=== PATIENT | female | born 1970 | race Caucasian/White ===

== ENCOUNTER 2020-12-03 09:44 | Outpatient (CLI) | payer BC, SELFPAY | END 2020-12-03 09:45 | disposition home or self-care (01) | LOC: ANHCOVIDVC 09:46 | PROVIDERS: PCP Family Medicine | DX: Z23 Encounter for immunization (principal) | CPT/HCPCS: 0001A; 91300 ==

== ENCOUNTER 2020-12-24 09:47 | Outpatient (CLI) | payer BC, SELFPAY | END 2020-12-24 09:48 | disposition home or self-care (01) | LOC: ANHCOVIDVC 09:48 | PROVIDERS: PCP Family Medicine | DX: Z23 Encounter for immunization (principal) | CPT/HCPCS: 0002A; 91300 ==

== ENCOUNTER 2023-04-30 02:33 | Day surgery (SDC) | payer BC, SELFPAY ==
[2023-04-20 08:41] VITALS: BMI 25.3
[2023-04-30] MEDS: LACTATED RINGERS 1,000 ML 150 ML IV CONT (06:25)
[2023-04-30 06:26] VITALS: BP 129/83; PULSE 85; RESP 16; TEMP 36.5; O2SAT 100
--- NOTE | 2023-04-30 07:21 | PM.HPGS ---
History of Present Illness History of Present Illness Consent: Risks, benefits, and alternatives have been discussed and questions answered. Patient agrees to proceed with procedure. Chief complaint: family hx colon ca Narrative: Delores Mata is a 52 year old female Presents for screening colonoscopy. Patient reports that her current weight appetite and bowel movements are normal. She denies abdominal pain. Family history is significant her mother had colon cancer. Previous colonoscopy 5 years ago was unremarkable. Review of Systems Review of Systems: Review of systems noncontributory. 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 Major depressive disorder, recurrent, unspecified Surgical History Surgical History History of back surgery History of breast augmentation History of hernia repair History of tonsillectomy Family History Family History Father Hypertension Mother Hypertension Carcinoma of colon Grandparent Acute myocardial infarction, Onset Age: 73 Family history of malignant neoplasm of breast, Onset Age: 80 Family history of cardiovascular disease Family history of malignant neoplasm of male breast Sibling Hypertension Social History Social History (Updated 01/12/23 @ 08:37 by Lisa Frankel MA) Social History: Caffeine-coffee daily Smoking status: Never smoker Alcohol intake: current Alcohol use details: occasional Substance use: never Substance use type: does not use Lack of Transportation: No Lack of Food: Never True Current Housing: I Have Housing Concerned About Future Housing: No Difficulty Paying Gas/Electric Bills: No Difficulty Paying for Meds: No Currently Unemployed: No Difficulty w/ Childcare or Family Care: No Living arrangements: with family Spiritual care concerns: No Meds Home Medications and Allergies Home Medications Medication Instructions Recorded Confirmed Type fluticasone propionate 50 2 spray intranasal DAILY #50 mL 05/14/21 04/20/23 Rx mcg/actuation nasal spray,suspension (Flonase Allergy Relief) amlodipine 2.5 mg tablet See Rx Instructions .Route 08/04/22 04/30/23 Rx .COMPLEX #90 tabs amitriptyline 50 mg tablet See Rx Instructions .Route 09/23/22 04/20/23 Rx .COMPLEX #90 tabs hydrocodone 5 mg-acetaminophen 325 1 tablet PO Q12H PRN pain #60 tabs 01/12/23 04/20/23 Rx mg tablet duloxetine 60 mg capsule,delayed See Rx Instructions .Route 02/05/23 04/20/23 Rx release .COMPLEX #90 caps levothyroxine 75 mcg tablet See Rx Instructions .Route 02/05/23 04/30/23 Rx .COMPLEX #90 tabs spironolactone 100 mg tablet See Rx Instructions .Route 04/08/23 04/20/23 Rx .COMPLEX #90 tabs estradiol 0.5 mg/0.5 gram (0.1 %) 1 packet topical DAILY 04/20/23 04/20/23 History transdermal gel packet ibuprofen 200 mg capsule 800 mg PO TID 04/20/23 04/20/23 History progesterone micronized 100 mg 100 mg PO DAILY 04/20/23 04/20/23 History capsule Allergies Allergy/AdvReac Type Severity Reaction Status Date / Time No Known Allergies Allergy Verified 04/30/23 06:14 Vital Signs Vital Signs - 24 hr 04/30/23 06:26 Temperature 97.7 F Pulse Rate 85 Respiratory Rate 16 Blood Pressure 129/83 Pulse Oximetry 100 Oxygen Delivery Room Air Exam Narrative: Physical exam reveals patient to be alert. Vital signs stable. HEENT exam is unremarkable. Patient is anicteric. Lungs are clear to auscultation and percussion. Heart is without murmur o
--- NOTE | 2023-04-30 07:21 | WPDANESEPPF ---
Anes - Initial Pre Proc Eval Procedure: Operation Date: 04/30/23 07:30 Proposed Procedures p Colonoscopy - Donal Baca MD Date/Time: 04/30/23 07:21 Surgeon: Donal Baca MD Pre Op Diagnosis: family hx colon ca Patient Data Age: 52 Gender: F Height: 1.71 m Weight: 73.2 kg Last Vital Signs Temp 97.7 F 04/30/23 06:26 Pulse 85 04/30/23 06:26 Resp 16 04/30/23 06:26 BP 129/83 04/30/23 06:26 Pulse Ox 100 04/30/23 06:26 O2 Del Method Room Air 04/30/23 06:26 Allergies Allergy/AdvReac Type Severity Reaction Status Date / Time No Known Allergies Allergy Verified 04/30/23 06:14 Home Medications Medication Instructions Recorded Confirmed Type fluticasone propionate 50 2 spray intranasal DAILY #50 mL 05/14/21 04/20/23 Rx mcg/actuation nasal spray,suspension (Flonase Allergy Relief) amlodipine 2.5 mg tablet See Rx Instructions .Route 08/04/22 04/30/23 Rx .COMPLEX #90 tabs amitriptyline 50 mg tablet See Rx Instructions .Route 09/23/22 04/20/23 Rx .COMPLEX #90 tabs hydrocodone 5 mg-acetaminophen 325 1 tablet PO Q12H PRN pain #60 tabs 01/12/23 04/20/23 Rx mg tablet duloxetine 60 mg capsule,delayed See Rx Instructions .Route 02/05/23 04/20/23 Rx release .COMPLEX #90 caps levothyroxine 75 mcg tablet See Rx Instructions .Route 02/05/23 04/30/23 Rx .COMPLEX #90 tabs spironolactone 100 mg tablet See Rx Instructions .Route 04/08/23 04/20/23 Rx .COMPLEX #90 tabs estradiol 0.5 mg/0.5 gram (0.1 %) 1 packet topical DAILY 04/20/23 04/20/23 History transdermal gel packet ibuprofen 200 mg capsule 800 mg PO TID 04/20/23 04/20/23 History progesterone micronized 100 mg 100 mg PO DAILY 04/20/23 04/20/23 History capsule Patient hx anesthesia problems: none Family hx anesthesia problems: none Results Review: All pre-operative results and documents have been reviewed as part of the pre-operative evaluation. 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 Major depressive disorder, recurrent, unspecified Surgical History Surgical History History of back surgery History of breast augmentation History of hernia repair History of tonsillectomy Family History Family History Father Hypertension Mother Hypertension Carcinoma of colon Grandparent Acute myocardial infarction, Onset Age: 73 Family history of malignant neoplasm of breast, Onset Age: 80 Family history of cardiovascular disease Family history of malignant neoplasm of male breast Sibling Hypertension Social History Social History (Updated 01/12/23 @ 08:37 by Lisa Frankel MA) Social History: Caffeine-coffee daily Smoking status: Never smoker Alcohol intake: current Alcohol use details: occasional Substance use: never Substance use type: does not use Lack of Transportation: No Lack of Food: Never True Current Housing: I Have Housing Concerned About Future Housing: No Difficulty Paying Gas/Electric Bills: No Difficulty Paying for Meds: No Currently Unemployed: No Difficulty w/ Childcare or Family Care: No Living arrangements: with family Spiritual care concerns: No Anes - Eval Final PreProcedure Day of Procedure 04/30/23 07:21 Patient weight: normal Heart: regular rate and rhythm Lungs: clear to auscultation Airway: Mallampati scale class II Neurological: alert and oriented Last oral intake: >/= 8 hours ASA classification: II Emergent: no Anesthetic plan: proceed Anesthesia type and monito
[2023-04-30 07:54] VITALS: BP 110/72; PULSE 68; RESP 15; O2SAT 100
[2023-04-30 08:04] VITALS: BP 115/79; PULSE 75; RESP 17; O2SAT 100
[2023-04-30 08:14] VITALS: BP 128/88; PULSE 75; RESP 17; O2SAT 100
== END 2023-04-30 08:22 | disposition home or self-care (01) ==
PROVIDERS: PCP Family Medicine; Visit Provider Internal Medicine Gastroenterology
PROC: 0DJD8ZZ Inspection of Lower Intestinal Tract, Via Natural or Artificial Opening Endoscopic (ICD-10-PCS; CPT 45378; principal; 2023-04-30 07:30)
DX: Z12.11 Encounter for screening for malignant neoplasm of colon (principal); K64.8 Other hemorrhoids; K21.9 Gastro-esophageal reflux disease without esophagitis; I10 Essential (primary) hypertension; E03.9 Hypothyroidism, unspecified; F33.9 Major depressive disorder, recurrent, unspecified; Z80.0 Family history of malignant neoplasm of digestive organs; Z79.891 Long term (current) use of opiate analgesic
CPT/HCPCS: 45378; J2704; J7120

== ENCOUNTER 2024-07-27 09:59 | Observation (INO) | payer BC, SELFPAY ==
[2024-07-27] VITALS (12 sets, daily range): BP systolic 104–156; BP diastolic 63–99; PULSE 71–113; RESP 12–19; TEMP 36.3–37.3; O2SAT 94–100; BMI 26.7
--- NOTE | ~2024-07-27 | XR_ITS ---
EXAMINATION: XR retrograde pyelogram RT DATE: 07/27/2024 15:56 INDICATION: Right ureteral stone. TECHNIQUE: 38 intraoperative fluoroscopic views of the abdomen and pelvis were obtained. I was not pr esent. Fluoroscopy exposure time was 25 seconds. COMPARISON: CT abdomen and pelvis 07/27/2024 FINDINGS: The track repair worker images demonstrate contrast in the right renal collecting system with mild right hydronephrosis. There are changes of fixation procedure of the spine. Images demonstrate placement of a right internal ureteral stent in expected position. IMPRESSION: 1. Mild right hydronephrosis. 2. Right internal ureteral stent in expected position. Reviewed, dictated and finalized at location A. KMAKER APPRENTICE
--- NOTE | ~2024-07-27 | CT_ITS ---
EXAMINATION: CT abdomen pelvis w con DATE: 07/27/2024 11:11 INDICATION: Right lower quadrant abdominal pain radiating to the back TECHNIQUE: Computed tomography (CT) of the abdomen and pelvis was performed with 100 mL Omnipaque-350 intravenous contrast. Automated exposure control and iterative reconstruction technique were employe d. The dose-length product was 457.74 mGy-cm. COMPARISON: None FINDINGS: Lung bases are clear. Heart size normal. No pericardial or pleural effusion. Bilateral breast implant s. Prominent gallstone in the otherwise normal gallbladder. 9 mm cyst in segment IVb of the liver. Sp benjie, pancreas, bilateral adrenal glands and left kidney are normal. There is an obstructing 5 mm sto ne at the right ureteropelvic junction with mild right hydronephrosis and asymmetrically delayed righ t nephrogram. Moderate amount of stool scattered throughout the colon. Small bowel and appendix are n ormal. Partially decompressed bladder is normal. The uterus and bilateral adnexa are unremarkable. No free intraperitoneal gas or fluid. No pathologically enlarged abdominal or pelvic lymphadenopathy. S evere disc height loss with Modic type III sclerotic endplate changes at L5-S1. There is extensive po sterior spinal fusion extending beyond the cephalad margin of the field of view of the mid thoracic s pine and caudally 0 to L5 with bilateral pedicle screws at L3, L4 and L5. There are laminar wires at the more cephalad lumbar and visualized lower thoracic spine. There are fracture of both the left and right vertical rods at the level of T12 on the right and T12-L1 on the left. IMPRESSION: 1. Obstructing 5 mm stone at the right ureteropelvic junction with mild right hydronephrosis and jay yed right nephrogram. 2. Cholelithiasis. 3. Extensive instrumented posterior spinal fusion extending cephalad from L5 through at least the mid thoracic spine and beyond the superior margin of the field of imaging with fraction of the bilateral vertical rods at the level of the thoracolumbar junction. Reviewed, dictated and finalized at location A. L CLERK IMPRESSION: 1. Obstructing 5 mm stone at the right ureteropelvic junction with mild right h ydronephrosis and delayed right nephrogram. 2. Cholelithiasis. 3. Extensive instrumented posterior spinal fusion extending cephalad from L5 th rough at least the mid thoracic spine and beyond the superior margin of the fie ld of imaging with fraction of the bilateral vertical rods at the level of the thoracolumbar junction.
--- NOTE | ~2024-07-27 | XR_ITS ---
EXAMINATION: XR abdomen/kub 1V DATE: 07/28/2024 08:21 INDICATION: Right ureteropelvic junction stone. TECHNIQUE: A supine view of the abdomen on 2 radiographs was obtained. COMPARISON: CT abdomen and pelvis 07/27/2024 FINDINGS: There are no dilated loops of bowel. There is a large volume of stool in the colon. There i s a 5 mm stone in right kidney. There is a right internal ureteral stent in expected position. There is a 4 mm stone in left kidney. There are changes of posterior fixation procedure in the spine with c hronic discontinuity of the vertebral bodies at T12-L1. IMPRESSION: 1. Bilateral kidney stones. 2. Right internal ureteral stent in expected position. Reviewed, dictated and finalized at location A. CISE PHYSIOLOGIST CERTIFIED
--- NOTE | 2024-07-27 10:25 | ED_ITS ---
HPI - Abdominal Pain General Chief Complaint: Abdominal Pain <LILIAN Gutierrez Last Filed: 07/27/24 12:38> Stated Complaint: RLQ pain radiates into the back <LILIAN Gutierrez Last Filed: 07/27/24 12:38> Time Seen by Provider: 07/27/24 10:03 <LILIAN Gutierrez Last Filed: 07/27/24 12:38> Source: patient <LILIAN Gutierrez Last Filed: 07/27/24 12:38> Mode of arrival: ambulatory <LILIAN Gutierrez Last Filed: 07/27/24 12:38> Limitations: no limitations <LILIAN Gutierrez Last Filed: 07/27/24 12:38> History of Present Illness HPI narrative: Patient is a 53-year-old female who presents the ED with report of right lower abdominal pain. Patient reports pain began this morning. Radiates around to her right lower back. Pain has been constant. Unable to find a comfortable position. Has not taken anything for pain. Reports shakiness, mild nausea. Denies vomiting, diarrhea, constipation, fevers, dysuria, hematuria. Denies history of kidney stones. Denies history of similar pain. <LILIAN Gutierrez Last Filed: 07/27/24 12:38> Related Data Home Medications: Home Medications Medication Instructions Recorded Confirmed estradiol 0.5 mg/0.5 gram (0.1 %) 1 packet topical DAILY 04/20/23 07/27/24 transdermal gel packet ibuprofen 200 mg capsule 800 mg PO TID PRN Back Pain 04/20/23 07/27/24 progesterone micronized 100 mg 100 mg PO HS 04/20/23 07/27/24 capsule amitriptyline 50 mg tablet 50 mg PO HS 07/27/24 07/27/24 amlodipine 2.5 mg tablet 2.5 mg PO DAILY 07/27/24 07/27/24 duloxetine 60 mg capsule,delayed 60 mg PO QPM 07/27/24 07/27/24 release levothyroxine 75 mcg tablet 75 mcg PO DAILY 07/27/24 07/27/24 spironolactone 100 mg tablet 100 mg PO QPM 07/27/24 07/27/24 <Kayce Reyna PA-C - Last Filed: 07/27/24 12:38> Allergies/Adverse Reactions: Allergies Allergy/AdvReac Type Severity Reaction Status Date / Time No Known Allergies Allergy Verified 07/27/24 15:09 <Kayce Reyna PA-C - Last Filed: 07/27/24 12:38> Review of Systems Review of Systems: All systems reviewed & are unremarkable except as noted in HPI. 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 Major depressive disorder, recurrent, unspecified <LILIAN Gutierrez Last Filed: 07/27/24 12:38> Surgical History Surgical History: Surgical History History of back surgery History of breast augmentation History of hernia repair History of tonsillectomy <Kayce Reyna PA-C - Last Filed: 07/27/24 12:38> Family History Family History: Family History Father Hypertension Mother Hypertension Carcinoma of colon Grandparent Acute myocardial infarction, Onset Age: 73 Family history of malignant neoplasm of breast, Onset Age: 80 Family history of cardiovascular disease Family history of malignant neoplasm of male breast Sibling Hypertension <LILIAN Gutierrez Last Filed: 07/27/24 12:38> Social History Social History: Social History Social History: Caffeine-coffee daily Smoking status: Current some day smoker Tobacco type: cigarettes Additional smoking assessment comments: social smoker with drinking only Alcohol intake: current Alcohol use details: occasional Substance use: never Substance use type: does not use Do You Feel Safe in your Home?: Yes Lack of Transportation: No Lack of Food: Never True Current Housing: I Have Housing Concerned About Future Housing: No Difficulty Paying Gas/Electric Bills: No Difficulty Paying for Meds: No Currently Unemployed: No Education: Trade/Vocational Certificate Difficulty w/ Childcare or Family Care: No Living arrangements: with family Spiritual care concerns: No <Kayce Reyna PA-C - Last Filed: 07/27/24 12:38> Exam Narrative: GENERAL: Uncomfortable appearing, well-nourished, non-toxic, in mild acute distress d/t pain. HEAD: Normocephalic, atraumatic. RESPIRATORY: Airway patent, respirations nonlabored. Clear to auscultation bilaterally, no rales, rhonchi, wheezing. CARDIOVASCULAR: Regular rate and rhythm ABDOMINAL: Soft, focal TTP in RLQ/R lateral lower abdomen, nondistended. N ormoactive BS. MUSCULOSKELETAL: Moves all extremities. No gross deformities. SKIN: Warm, dry, normal color. NEURO: A&O X3. Speech clear. PSYCHIATRIC: Appropriate mood and affect. Normal interaction. <Kayce Reyna PA-C - Last Filed: 07/27/24 12:38> Course [facility]/PA Physician Supervision For this patient encounter, I reviewed the SERVICE [facility]ER EMERGENCY or PA documentation, treatment plan, and medical decision making; and I had [id number] time with this patient. <Niko Bliss MD - Last Filed: 07/27/24 18:51> Vital Signs Vital signs: Vital Signs Temperature 98 F 07/27/24 10:00 Pulse Rate 71 07/27/24 10:00 Respiratory Rate 16 07/27/24 10:00 Blood Pressure 147/85 H 07/27/24 10:00 Pulse Oximetry 100 07/27/24 10:00 Oxygen Delivery Room Air 07/27/24 10:00 Temperature 98.1 F 07/27/24 15:55 Pulse Rate 105 H 07/27/24 16:30 Respiratory Rate 19 12/04/24 16:30 Blood Pressure 125/84 07/27/24 16:30 Pulse Oximetry 100 07/27/24 16:30 Oxygen Delivery Room Air 07/27/24 16:30 Oxygen Flow Rate 8 07/27/24 16:00 <Kayce Reyna PA-C - Last Filed: 07/27/24 12:38> Vital Signs Temperature 98 F 07/27/24 10:00 Pulse Rate 71 07/27/24 10:00 Respiratory Rate 16 07/27/24 10:00 Blood Pressure 147/85 H 07/27/24 10:00 Pulse Oximetry 100 07/27/24 10:00 Oxygen Delivery Room Air 07/27/24 10:00 Temperature 98.1 F 07/27/24 15:55 Pulse Rate 105 H 07/27/24 16:30 Respiratory Rate 19 07/27/24 16:30 Blood Pressure 125/84 07/27/24 16:30 Pulse Oximetry 100 07/27/24 16:30 Oxygen Delivery Room Air 07/27/24 16:30 Oxygen Flow Rate 8 07/27/24 16:00 <Niko Bliss MD - Last Filed: 07/27/24 18:51> MDM - Abdominal Pain MDM Narrative Medical decision making narrative: Patient presented to ED with onset of right lower quadrant abdominal pain that began this morning, radiates to right lower back. Vital signs are stable upon arrival. Patient is afebrile. CBC with white blood cell count of 13.1. Neutrophil predominance. No bandemia. CMP is fairly unremarkable. Minimal transaminitis noted. Normal bilirubin. Normal lipase. UA with positive nitrate, some evidence of blood, only 6 - 10 white blood cell count. Sent for culture. Will treat. Given dose of Rocephin in the ED to cover for potential infection. Blood present on UA concerning for possible kidney stone. Patient denies previous hx of stone. CT scan of abdomen/ pelvis was obtained and showing 5 mm right UPJ stone. Mild R hydronephrosis/delayed nephrogram. consistent with clinical picture. Patient was updated on lab and imaging findings. She is still complaining of severe right-sided pain. Will attempt additional pain control. Patient has required several doses of IV pain medicine with minimal relief. Will be admitted for further evaluation and pain control. Discussed case with Dr. Porras, urology, will likely take patient for stent tomorrow. Will consult. Keep NPO. Obtain KUB in am. Discussed case with Silva Waite [facility]ICE [facility]ER [facility]ERG[facility]Y hospitalist, accepted patient for admission. Patient in agreement with plan and need for admission. <Kayce Reyna PA-C - Last Filed: 07/27/24 12:38> Medical Records Attestation: I reviewed the patient's medical records. <Kayce Reyna PA-C - Last Filed: 07/27/24 12:38> Lab Data Attestation: I reviewed the patient's lab results. <Kayce Reyna PA-C - Last Filed: 07/27/24 12:38> Result diagrams: 07/27/24 10:19 07/27/24 10:19 <Kayce Reyna PA-C - Last Filed: 07/27/24 12:38> Labs: Lab Results 07/27/24 07/27/24 Range/Units 10:19 10:42 WBC 13.1 H (4.5-10.0) K/mm3 RBC 4.43 (4.2-5.4) M/mm3 Hgb 13.6 (12.0-15.0) g/dL Hct 41.8 (37.0-47.0) % MCV 94.4 (80-100) fl MCH 30.7 (26-34) pg MCHC 32.5 (32-36) g/dl RDW 12.1 (11.5-14.5) % Plt Count 223 (150-375) k/mm3 MPV 10.2 (7.4-10.4) fl Immature Gran % (Auto) 0.5 (0-0.5) % Neut % (Auto) 83.6 H (45.5-73.1) % Lymph % (Auto) 10.1 L (18.3-44.2) % Swisher % (Auto) 5.0 (2.6-8.5) % Eos % (Auto) 0.5 (0-4.4) % Baso % (Auto) 0.3 (0.2-1.2) % Lymph # (Auto) 1.32 (0.9-3.2) K/mm3 Swisher # (Auto) 0.7 H (0.1-0.6) K/mm3 Eos # (Auto) 0.1 (0-0.3) K/mm3 Baso # (Auto) 0.0 (0.0-0.1) K/mm3 Abs Immat Gran (auto) 0.06 H (0.00-0.031) K/mm3 Absolute Neuts (auto) 10.9 H (1.3-6.7) K/mm3 Absolute Nucleated RBC 0.000 (0.0-0.012) K/mm3 Nucleated RBC % 0.0 (0.0-0.2) % Sodium 137 (137-145) mmol/L Potassium 4.3 (3.4-5.0) mmol/L Chloride 106 (98-107) mmol/L Carbon Dioxide 21 L (22-30) mmol/L Anion Gap 10 (4-12) mmol/L BUN 26 H (7-17) mg/dL Creatinine 0.90 (0.7-1.0) mg/dL Estim Creat Clear Calc 63 ml/min Estimated GFR > 60 (59 - ) Glucose 123 H (65-110) mg/dL Calcium 9.7 (8.4-10.2) mg/dL Total Bilirubin 0.5 (0.2-1.3) mg/dL AST 43 H (14-36) U/L ALT 52 H (6-35) U/L Alkaline Phosphatase 55 (38-126) U/L Total Protein 8.0 (6.3-8.2) g/dL Albumin 4.8 (3.5-5.1) g/dL Lipase 101 (23-300) U/L Urine Color Yellow (Yellow) Urine Appearance Clear (Clear) Urine pH 7.5 (5.0-9.0) Ur Specific [place] 1.016 (1.001-1.035) Urine Protein Negative (Negative) mg/dL Urine Glucose (UA) Negative (Negative) mg/dL Urine Ketones Negative (Negative) mg/dL Ur Blood (Man) 2+ H (Negative) Urine Nitrate Positive H (Negative) Urine Bilirubin Negative (Negative) Urine Urobilinogen 1.0 (<2.0) mg/dL Leukocyte Esterase Rfl Trace H (Negative) DERIAN/UL Urine RBC 11-20 H (0-2) /hpf Urine WBC 6-10 H (0-3) /hpf Ur Squamous Epith Cells None seen (Few) /hpf Urine Bacteria 1+ H /hpf Urine Casts 0-2 <Kayce Reyna PA-C - Last Filed: 07/27/24 12:38> Lab Results 07/27/24 07/27/24 Range/Units 10:19 10:42 WBC 13.1 H (4.5-10.0) K/mm3 RBC 4.43 (4.2-5.4) M/mm3 Hgb 13.6 (12.0-15.0) g/dL Hct 41.8 (37.0-47.0) % MCV 94.4 (80-100) fl MCH 30.7 (26-34) pg MCHC 32.5 (32-36) g/dl RDW 12.1 (11.5-14.5) % Plt Count 223 (150-375) k/mm3 MPV 10.2 (7.4-10.4) fl Immature Gran % (Auto) 0.5 (0-0.5) % Neut % (Auto) 83.6 H (45.5-73.1) % Lymph % (Auto) 10.1 L (18.3-44.2) % Swisher % (Auto) 5.0 (2.6-8.5) % Eos % (Auto) 0.5 (0-4.4) % Baso % (Auto) 0.3 (0.2-1.2) % Lymph # (Auto) 1.32 (0.9-3.2) K/mm3 Swisher # (Auto) 0.7 H (0.1-0.6) K/mm3 Eos # (Auto) 0.1 (0-0.3) K/mm3 Baso # (Auto) 0.0 (0.0-0.1) K/mm3 Abs Immat Gran (auto) 0.06 H (0.00-0.031) K/mm3 Absolute Neuts (auto) 10.9 H (1.3-6.7) K/mm3 Absolute Nucleated RBC 0.000 (0.0-0.012) K/mm3 Nucleated RBC % 0.0 (0.0-0.2) % Sodium 137 (137-145) mmol/L Potassium 4.3 (3.4-5.0) mmol/L Chloride 106 (98-107) mmol/L Carbon Dioxide 21 L (22-30) mmol/L Anion Gap 10 (4-12) mmol/L BUN 26 H (7-17) mg/dL Creatinine 0.90 (0.7-1.0) mg/dL Estim Creat Clear Calc 63 ml/min Estimated GFR > 60 (59 - ) Glucose 123 H (65-110) mg/dL Calcium 9.7 (8.4-10.2) mg/dL Total Bilirubin 0.5 (0.2-1.3) mg/dL AST 43 H (14-36) U/L ALT 52 H (6-35) U/L Alkaline Phosphatase 55 (38-126) U/L Total Protein 8.0 (6.3-8.2) g/dL Albumin 4.8 (3.5-5.1) g/dL Lipase 101 (23-300) U/L Urine Color Yellow (Yellow) Urine Appearance Clear (Clear) Urine pH 7.5 (5.0-9.0) Ur Specific [place] 1.016 (1.001-1.035) Urine Protein Negative (Negative) mg/dL Urine Glucose (UA) Negative (Negative) mg/dL Urine Ketones Negative (Negative) mg/dL Ur Blood (Man) 2+ H (Negative) Urine Nitrate Positive H (Negative) Urine Bilirubin Negative (Negative) Urine Urobilinogen 1.0 (<2.0) mg/dL Leukocyte Esterase Rfl Trace H (Negative) DERIAN/UL Urine RBC 11-20 H (0-2) /hpf Urine WBC 6-10 H (0-3) /hpf Ur Squamous Epith Cells None seen (Few) /hpf Urine Bacteria 1+ H /hpf Urine Casts 0-2 <Niko Bliss MD - Last Filed: 07/27/24 18:51> Imaging Data Attestation: I personally reviewed and interpreted this imaging study as follows: <Kayce Reyna PA-C - Last Filed: 07/27/24 12:38> Radiologist's impression: ITS Impressions Abdomen/Pelvis CT 07/27/24 11:18 IMPRESSION: 1. Obstructing 5 mm stone at the right ureteropelvic junction with mild right hydronephrosis and delayed right nephrogram. 2. Cholelithiasis. 3. Extensive instrumented posterior spinal fusion extending cephalad from L5 through at least the mid thoracic spine and beyond the superior margin of the field of imaging with fraction of the bilateral vertical rods at the level of the thoracolumbar junction. Retrograde Pyelogram 07/27/24 16:37 IMPRESSION: 1. Mild right hydronephrosis. 2. Right internal ureteral stent in expected position. <Kayce Reyna PA-C - Last Filed: 07/27/24 12:38> ITS Impressions Abdomen/Pelvis CT 07/27/24 11:18 IMPRESSION: 1. Obstructing 5 mm stone at the right ureteropelvic junction with mild right hydronephrosis and delayed right nephrogram. 2. Cholelithiasis. 3. Extensive instrumented posterior spinal fusion extending cephalad from L5 through at least the mid thoracic spine and beyond the superior margin of the field of imaging with fraction of the bilateral vertical rods at the level of the thoracolumbar junction. Retrograde Pyelogram 07/27/24 16:37 IMPRESSION: 1. Mild right hydronephrosis. 2. Right internal ureteral stent in expected position. <Niko Bliss MD - Last Filed: 07/27/24 18:51> Discharge Plan Discharge Clinical Impression: Obstruction of right ureteropelvic junction (UPJ) due to stone, Abnormal finding on urinalysis, Right sided abdominal pain <LILIAN Gutierrez Last Filed: 07/27/24 12:38> Patient Disposition: Still a Patient <LILIAN Gutierrez Last Filed: 07/27/24 12:38> Condition: Stable <LILIAN Gutierrez Last Filed: 07/27/24 12:38>
[2024-07-27 10:29] LABS: Basophils Percent Auto 0.3 % (0.2-1.2); Eosinophils Absolute Auto 0.1 K/mm3 (0-0.3); Eosinophils Percent Auto 0.5 % (0-4.4); Hematocrit 41.8 % (37.0-47.0); Hemoglobin 13.6 g/dL (12.0-15.0); Immature Granulocyte Absolute 0.06 K/mm3 (0.00-0.031); Immature Granulocyte Percent A 0.5 % (0-0.5); Lymphocytes Absolute Auto 1.32 K/mm3 (0.9-3.2); Lymphocytes Percent Auto 10.1 % (18.3-44.2); Mean Corpuscular HGB Conc 32.5 g/dl (32-36); Mean Corpuscular Hemoglobin 30.7 pg (26-34); Mean Corpuscular Volume 94.4 fl (80-100); Mean Platelet Volume 10.2 fl (7.4-10.4); Monocytes Absolute Auto 0.7 K/mm3 (0.1-0.6); Neutrophils Absolute Auto 10.9 K/mm3 (1.3-6.7); Neutrophils Percent Auto 83.6 % (45.5-73.1); Platelet Count Result 223 k/mm3 (150-375); Red Blood Count 4.43 M/mm3 (4.2-5.4); Red Cell Distribution Width 12.1 % (11.5-14.5); White Blood Count 13.1 K/mm3 (4.5-10.0)
[2024-07-27] MEDS: MORPHINE SULFATE (*CRX) 4 MG/ML INJ IV PUSH (10:39)
[2024-07-27] MEDS: ONDANSETRON INJ 4 MG/2 ML VIAL IV PUSH ×2 (10:40→12:18)
[2024-07-27 10:45] LABS: Alanine Aminotransferase 52 U/L (6-35); Albumin Level 4.8 g/dL (3.5-5.1); Alkaline Phosphatase 55 U/L (38-126); Anion Gap 10 mmol/L (4-12); Aspartate Amino Transferase 43 U/L (14-36); Bilirubin,Total 0.5 mg/dL (0.2-1.3); Blood Urea Nitrogen 26 mg/dL (7-17); Calcium 9.7 mg/dL (8.4-10.2); Carbon Dioxide 21 mmol/L (22-30); Chloride 106 mmol/L (98-107); Estimated CRCL calculation 63 ml/min; Estimated Glomerular Filt Rate > 60; Glucose 123 mg/dL (65-110); Lipase 101 U/L (23-300); Potassium 4.3 mmol/L (3.4-5.0); Sodium 137 mmol/L (137-145)
[2024-07-27 11:00] LABS: Add Urine Microscopic? YES; Appearance Urine Clear (Clear); Bacteria Urine 1+ /hpf; Bilirubin Urine Negative (Negative); Blood Urine 2+ (Negative); Color Urine Yellow (Yellow); Glucose Urine UA Negative (Negative); Ketones Urine Negative (Negative); Leukocyte Esterase Ur Trace LEU/UL (Negative); Nitrate Urine Positive (Negative); Non Pathogenic Casts 0-2; Protein Urine Negative (Negative); Specific Grav Ur 1.016 (1.001-1.035); Squamous Epithelial Cell Urine None Seen /hpf (Few); pH Urine 7.5 (5.0-9.0)
[2024-07-27] MEDS: HYDROmorphone HCL INJ (*CRX) 1 MG/ML SYR 0.5 MG IV PUSH (11:20)
[2024-07-27] MEDS: SODIUM CHLORIDE 0.9% IV 1,000 ML 999 ML IV CONT (11:59)
[2024-07-27] MEDS: TAMSULOSIN HCL 0.4 MG CAPSULE PO ×2 (12:00→17:00)
[2024-07-27] MEDS: ACETAMINOPHEN 500 MG TABLET 1000 MG PO (12:00)
[2024-07-27] MEDS: HYDROmorphone HCL INJ (*CRX) 1 MG/ML SYR IV PUSH (12:00)
[2024-07-27] MEDS: IBUPROFEN IV 800 MG/200 ML 800 MG/200 ML BAG 387.51 MG IVPB (12:20)
--- NOTE | 2024-07-27 12:22 | PC.NURSE ---
Pt. reports 7/10 pain at time at IV Ibuprofen anitiation
[2024-07-27] MEDS: SODIUM CHLORIDE 0.9% IV 1,000 ML 125 ML IV CONT ×2 (13:16→23:00)
--- NOTE | 2024-07-27 13:27 | WPDURCON ---
Assessment and Plan Assessment and plan (1) Obstruction of right ureteropelvic junction (UPJ) due to stone: Code(s): N20.1 - Calculus of ureter Status: Acute Assessment and Plan: - Obstructing 5 mm stone at right ureteropelvic junction with mild right hydronephrosis identified on CT imaging - Required hospital admission due to poor pain control (2) UTI (urinary tract infection): Qualifiers: Urinary tract infection type: acute cystitis Hematuria presence: with hematuria Qualified Code(s): N30.01 - Acute cystitis with hematuria Code(s): N39.0 - Urinary tract infection, site not specified Status: Acute Assessment and Plan: - Urinalysis suspicious for urinary tract infection [present on admission] - Urine culture pending Plan - Keep NPO for planned cystoscopy, right ureteral stent placement with Dr. Porras this afternoon - Continue tamsulosin - Strain urine - Continue IV ceftriaxone pending urine culture results - Pain management and IV fluids per primary team - Anticipate need for outpatient stone treatment in the next 1-2 weeks after infection has cleared Urology Consult Note HPI Date Seen: 07/27/24 Requesting Physician: Mj Le MD Primary Care Provider: MARGY Fitch-Carlyle Consult Narrative Reason for consult: Obstructing 5 mm stone at right ureteropelvic junction Narrative: Neema Mata presents with right lower quadrant abdominal pain that began this morning. Pain has been constant with inability to find a comfortable position. Reports shakiness and mild nausea, denies vomiting, diarrhea, constipation, fevers, dysuria, or hematuria. Initial pain management with morphine and Dilaudid in the ED was ineffective; pain control achieved with higher dose Dilaudid, ibuprofen, and Tylenol. No prior history of kidney stones. CT imaging revealed a 5 mm obstructing stone at right ureteropelvic junction with mild hydronephrosis. Currently receiving IV fluids. Has been NPO since about 0530 this morning. PERTINENT LABS: 07/27/2024 - WBC 13.1, Hgb 13.6, Hct 41.8, Plt 223, Creatinine 0.90 07/27/2024 - UA: 2+ blood, positive nitrite, trace leukocyte esterase, RBC 11-20, WBC 6-10, bacteria 1+ PERTINENT IMAGIN07/27/2024 CT Abdomen/Pelvis - Obstructing 5 mm stone at right ureteropelvic junction with mild right hydronephrosis and delayed right nephrogram. Incidental findings of cholelithiasis and extensive instrumented posterior spinal fusion. Review of Systems Constitutional: Constitutional: Reports no additional constitutional complaints Eyes: Eyes: Reports no additional eye complaints ENT: Reports Normal hearing present Cardiovascular: Cardiovascular: Reports no additional cardiovascular complaints Respiratory: Respiratory: Reports no additional respiratory complaints Gastrointestinal: Gastrointestinal: Reports abdominal pain and Reports nausea Genitourinary: Genitourinary: Reports as per HPI Musculoskeletal: Musculoskeletal: Reports as per HPI Neurologic: Reports system reviewed and no additional complaints, except as documented Psychiatric: Psychiatric: Reports no additional psychiatric complaints [facility] Past Medical History Medical History Actinic keratosis Benign essential hypertension with target blood pressure below 140/90 Dry eye syndrome of bilateral lacrimal glands GERD (gastroesophageal reflux disease) Hypothyroidism (acquired) Infantile idiopathic scoliosis, thoracolumbar region MCC use of drug Major depressive disorder, recurrent, unspecified Surgical History Surgical History History of back surgery History of breast augmentation History of hernia repair History of tonsillectomy Family History Family History Father Hypertension Mother Hypertension Carcinoma of colon Grandparent Acute myocardial infarction, Onset Age: 73 Family history of malignant neoplasm of breast, Onset Age: 80 Family history of cardiovascular disease Family history of malignant neoplasm of male breast Sibling Hypertension Social History Social History Social History: Caffeine-coffee daily Smoking status: Never smoker Alcohol intake: current Alcohol use details: occasional Substance use: never Substance use type: does not use Lack of Transportation: No Lack of Food: Never True Current Housing: I Have Housing Concerned About Future Housing: No Difficulty Paying Gas/Electric Bills: No Difficulty Paying for Meds: No Currently Unemployed: No Difficulty w/ Childcare or Family Care: No Living arrangements: with family Spiritual care concerns: No Meds Home Medications and Allergies Home Medications Medication Instructions Recorded Confirmed Type estradiol 0.5 mg/0.5 gram (0.1 %) 1 packet topical DAILY 04/20/23 07/27/24 History transdermal gel packet ibuprofen 200 mg capsule 800 mg PO TID PRN Back Pain 04/20/23 07/27/24 History progesterone micronized 100 mg 100 mg PO HS 04/20/23 07/27/24 History capsule hydrocodone 5 mg-acetaminophen 325 1 tablet PO Q12H PRN pain #60 tabs 05/20/24 07/27/24 Rx mg tablet amitriptyline 50 mg tablet 50 mg PO HS 07/27/24 07/27/24 History amlodipine 2.5 mg tablet 2.5 mg PO DAILY 07/27/24 07/27/24 History duloxetine 60 mg capsule,delayed 60 mg PO QPM 07/27/24 07/27/24 History release levothyroxine 75 mcg tablet 75 mcg PO DAILY 07/27/24 07/27/24 History spironolactone 100 mg tablet 100 mg PO QPM 07/27/24 07/27/24 History Allergies Allergy/AdvReac Type Severity Reaction Status Date / Time No Known Allergies Allergy Verified 07/27/24 15:09 Vital Signs Vital Signs - 24 hr 07/27/24 10:00 07/27/24 11:20 07/27/24 13:17 Temperature 98 F Pulse Rate 71 91 97 Respiratory Rate 16 18 18 Blood Pressure 147/85 H 156/99 H 156/92 H Pulse Oximetry 100 98 99 Oxygen Delivery Room Air Exam Const: General: comfortable and no acute distress HENMT: Face/Nose/Sinus: Normal nares present Eyes: General: appearance normal, both eyes and all related structures Neck: Neck: supple Resp: Effort & Inspection: normal respiratory effort GI: Other: RLQ tender, nondistended Skin: General skin exam: normal color and no rashes or lesions noted Neuro: Speech: normal speech Extrem: General: normal to inspection Psych: Speech and movement: Normal speech and movement present Affect: normal affect Results Labs 07/27/24 10:19 07/27/24 10:19 Labs: Short CBC 07/27/24 Range/Units 10:19 WBC 13.1 H (4.5-10.0) K/mm3 Hgb 13.6 (12.0-15.0) g/dL Hct 41.8 (37.0-47.0) % Plt Count 223 (150-375) k/mm3 [facility] 07/27/24 10:19 Sodium 137 Potassium 4.3 Chloride 106 Carbon Dioxide 21 L BUN 26 H Creatinine 0.90 Glucose 123 H Calcium 9.7 Liver Function 07/27/24 Range/Units 10:19 Total Bilirubin 0.5 (0.2-1.3) mg/dL AST 43 H (14-36) U/L ALT 52 H (6-35) U/L Alkaline Phosphatase 55 (38-126) U/L Albumin 4.8 (3.5-5.1) g/dL Urine 07/27/24 Range/Units 10:42 Urine Color Yellow (Yellow) Urine Appearance Clear (Clear) Urine pH 7.5 (5.0-9.0) Ur Specific [place] 1.016 (1.001-1.035) Urine Protein Negative (Negative) mg/dL Urine Glucose (UA) Negative (Negative) mg/dL
--- NOTE | 2024-07-27 13:34 | P.HP_ITS ---
H&P: HPI History of Present Illness Date/Time: 07/27/24 13:34 Chief Complaint: Abdominal Pain Narrative: 53 y/o F presents here with or lower quadrant pain with PMH of GERD, hypothyroidism, hypertension, and MDD. The patient presents here from home for further evaluation of right lower quadrant pain. The patient reports acute onset of right lower abdominal pain this morning at 06:50 a.m. She describes the pain initially as gas cramps -> sharp, progressive, radiation into her right lower back/flank, constant, and no alleviating or aggravating factors. Did not trial any [id number] pain medications at home. Did try Tums without relief. Endorsing chills and intermittent diaphoresis. Denies associated fever, nausea, vomiting, or body aches. Patient now feeling improved post cystoscopy. Initial VS at presentation: Na degrees F, HR 71, RR 16, 147/85, and 100% on RA. ED workup showed: WBC 13.1, no anemia, creatinine 0.9 and GFR >60, glucose 123, AST 43, ALT 52, and UA consistent with UTI. CT of the abdomen/pelvis showed an obstructing 5 mm stone at the right ureteropelvic junction with mild right hydronephrosis and delayed right nephrogram, cholelithiasis, extensive instrumented posterior spinal fusion. Review of Systems Review of Systems: All systems reviewed & are unremarkable except as noted in HPI and below PMFSH Past Medical History Medical History Actinic keratosis Benign essential hypertension with target blood pressure below 140/90 Dry eye syndrome of bilateral lacrimal glands GERD (gastroesophageal reflux disease) Hypothyroidism (acquired) Infantile idiopathic scoliosis, thoracolumbar region assisted use of drug Major depressive disorder, recurrent, unspecified Surgical History Surgical History History of back surgery History of breast augmentation History of hernia repair History of tonsillectomy Family History Family History Father Hypertension Mother Hypertension Carcinoma of colon Grandparent Acute myocardial infarction, Onset Age: 73 Family history of malignant neoplasm of breast, Onset Age: 80 Family history of cardiovascular disease Family history of malignant neoplasm of male breast Sibling Hypertension Social History Social History Social History: Caffeine-coffee daily Smoking status: Current some day smoker Tobacco type: cigarettes Additional smoking assessment comments: social smoker with drinking only Alcohol intake: current Alcohol use details: occasional Substance use: never Substance use type: does not use Do You Feel Safe in your Home?: Yes Lack of Transportation: No Lack of Food: Never True Current Housing: I Have Housing Concerned About Future Housing: No Difficulty Paying Gas/Electric Bills: No Difficulty Paying for Meds: No Currently Unemployed: No Education: Trade/Vocational Certificate Difficulty w/ Childcare or Family Care: No Living arrangements: with family Spiritual care concerns: No Meds Home Medications and Allergies Home Medications Medication Instructions Recorded Confirmed Type estradiol 0.5 mg/0.5 gram (0.1 %) 1 packet topical DAILY 04/20/23 07/27/24 History transdermal gel packet ibuprofen 200 mg capsule 800 mg PO TID PRN Back Pain 04/20/23 07/27/24 History progesterone micronized 100 mg 100 mg PO HS 04/20/23 07/27/24 History capsule hydrocodone 5 mg-acetaminophen 325 1 tablet PO Q12H PRN pain #60 tabs 05/20/24 07/27/24 Rx mg tablet amitriptyline 50 mg tablet 50 mg PO HS 07/27/24 07/27/24 History amlodipine 2.5 mg tablet 2.5 mg PO DAILY 07/27/24 07/27/24 History duloxetine 60 mg capsule,delayed 60 mg PO QPM 07/27/24 07/27/24 History release levothyroxine 75 mcg tablet 75 mcg PO DAILY 07/27/24 07/27/24 History spironolactone 100 mg tablet 100 mg PO QPM 07/27/24 07/27/24 History Allergies Allergy/AdvReac Type Severity Reaction Status Date / Time No Known Allergies Allergy Verified 07/27/24 15:09 Vital Signs Vital Signs - 24 hr 07/27/24 10:00 07/27/24 11:20 07/27/24 13:17 Temperature 98 F Pulse Rate 71 91 97 Respiratory Rate 16 18 18 Blood Pressure 147/85 H 156/99 H 156/92 H Pulse Oximetry 100 98 99 Oxygen Delivery Room Air Exam Const: General: comfortable and no acute distress Other: , female, nontoxic appearance HENMT: Face/Nose/Sinus: Normal nares present Mouth: Yes moist mucous membranes Eyes: General: appearance normal, both eyes and all related structures Sclera: sclerae normal Pupils: Equal, round and reactive pupils present EOM: EOMs intact bilaterally Resp: Effort & Inspection: normal respiratory effort Auscultation: clear to auscultation bilaterally Cardio: Rate: regular rate Rhythm: regular rhythm Other: S1-S2 present without murmur, rub, ectopy GI: Other: Abdomen soft, nondistended, nontender. Normoactive bowel sounds in all quadrants. : Other: No suprapubic tenderness Skin: General skin exam: normal color and no rashes or lesions noted Wounds: no wounds Neuro: Speech: normal speech Motor exam (neuro): 5/5 motor strength present throughout Sensory Exam: normal sensation Other: A&O x4 Extrem: General: normal to inspection Psych: Mental Status: mental status grossly normal Affect: normal affect Other: Good insight and judgment, pleasant H&P: Results Labs Labs: Short CBC 07/27/24 Range/Units 10:19 WBC 13.1 H (4.5-10.0) K/mm3 Hgb 13.6 (12.0-15.0) g/dL Hct 41.8 (37.0-47.0) % Plt Count 223 (150-375) k/mm3 BMP 07/27/24 10:19 Sodium 137 Potassium 4.3 Chloride 106 Carbon Dioxide 21 L BUN 26 H Creatinine 0.90 Glucose 123 H Calcium 9.7 Liver Function 07/27/24 Range/Units 10:19 Total Bilirubin 0.5 (0.2-1.3) mg/dL AST 43 H (14-36) U/L ALT 52 H (6-35) U/L Alkaline Phosphatase 55 (38-126) U/L Albumin 4.8 (3.5-5.1) g/dL Urine 07/27/24 Range/Units 10:42 Urine Color Yellow (Yellow) Urine Appearance Clear (Clear) Urine pH 7.5 (5.0-9.0) Ur Specific [place] 1.016 (1.001-1.035) Urine Protein Negative (Negative) mg/dL Urine Glucose (UA) Negative (Negative) mg/dL Assessment and Plan Assessment and plan (1) Obstruction of right ureteropelvic junction (UPJ) due to stone: Code(s): N20.1 - Calculus of ureter Status: Acute Assessment and Plan: - CT abdomen/pelvis: 1. Obstructing 5 mm stone at the right ureteropelvic junction with mild right hydronephrosis and delayed right nephrogram. 2. Cholelithiasis. 3. Extensive instrumented posterior spinal fusion extending cephalad from L5 through at least the mid thoracic spine and beyond the superior margin of the field of imaging with fraction of the bilateral vertical rods at the level of the thoracolumbar junction. - urology consulted, awaiting formal recs. ED provider spoke with Chiquita RENEE, patient will likely go for stent placement tomorrow. Keep NPO. Obtain KUB in a.m. (ordered) - analgesics and antiemetics p.r.n. - Flomax initiated in ED, continue - IV fluids: 1L bolus -> 125 mL/hr, d/c when appropriate - monitor I&Os - trend renal function (2) UTI (urinary tract infection): Qualifiers: Hematuria presence: without hematuria Urinary tract infection type: acute cystitis Qualified Code(s): N30.00 - Acute cystitis without hematuria Code(s): N39.0 - Urinary tract infection, site not specified Status: Acute Assessment and Plan: - UA: 2+ blood, positive nitrates, trace leuks, 11-20 and RBC, 6-10 WBC, no epithelial cells, 1+ bacteria. - UC pending - previous micro reviewed, none available for review - started on Ceftriaxone on 07/27 - trend WBC (3) Transaminitis: Code(s): R74.01 - Elevation of levels of liver transaminase levels Status: Acute Assessment and Plan: - AST 43, ALT 52 - lipase 101 - CT of the abdomen/pelvis showed cholelithiasis - trend (4) Benign essential hypertension: Code(s): I10 - Essential (primary) hypertension Status: Chronic Assessment and Plan: - chronic, currently 156/92 - continue home medications: amlodipine 2.5 mg daily, spironolactone 100 mg HS - monitor Plan Diet: NPO GI Prophylaxis: Not currently indicated DVT Prophylaxis: SCDs Lines: Peripheral Code Status: Full code Quality VTE Prophylaxis VTE prophylaxis: mechanical ordered Hospitalist [facility] Advance Care Plan I have confirmed that the patient's Advanced Care Plan is present, code status is documented, or surrogate decision maker is listed in patient medical record.: Yes Medication Reconciliation I have utilized all available resources to obtain, update and review the patients current medications (includes all prescriptions, OTC, herbals, cannabis, and nutritional supplements).: Yes
--- NOTE | 2024-07-27 13:35 | ADMGEN ---
This patient, Delores Mata, was admitted to Medical Room 253-01. Patient/family oriented to hospital policies and general routines including ID bracelet, bed and alarms, visiting hours, pain management, procedures, bathroom and other care routines, personal items, smoking policy, room service/diet, and visiting hours. Information on how to activate the Rapid Response Team has been discussed. Patient/Family are encouraged to report perceived risks to care and to ask questions if they do not understand what they are told or what they should do.
--- NOTE | 2024-07-27 15:12 | P.PNAN_ITS ---
Anes - Initial Pre Proc Eval Procedure: Operation Date: 07/27/24 15:00 Proposed Procedures p Cystoscopy, Right Stent Placement - Nathanael Porras MD Date/Time: 07/27/24 15:12 Surgeon: Mj Le MD Pre Op Diagnosis: R UPJ stone Patient Data Age: 53 Gender: F Height: 1.7 m Weight: 77.4 kg Last Vital Signs Temp 37.3 C 07/27/24 15:00 Pulse 88 07/27/24 15:00 Resp 18 07/27/24 15:00 BP 141/82 H 07/27/24 15:00 Pulse Ox 100 07/27/24 15:00 O2 Del Method Room Air 07/27/24 15:00 Allergies Allergy/AdvReac Type Severity Reaction Status Date / Time No Known Allergies Allergy Verified 07/27/24 15:09 Home Medications Medication Instructions Recorded Confirmed Type estradiol 0.5 mg/0.5 gram (0.1 %) 1 packet topical DAILY 04/20/23 07/27/24 History transdermal gel packet ibuprofen 200 mg capsule 800 mg PO TID PRN Back Pain 04/20/23 07/27/24 History progesterone micronized 100 mg 100 mg PO HS 04/20/23 07/27/24 History capsule hydrocodone 5 mg-acetaminophen 325 1 tablet PO Q12H PRN pain #60 tabs 05/20/24 07/27/24 Rx mg tablet amitriptyline 50 mg tablet 50 mg PO HS 07/27/24 07/27/24 History amlodipine 2.5 mg tablet 2.5 mg PO DAILY 07/27/24 07/27/24 History duloxetine 60 mg capsule,delayed 60 mg PO QPM 07/27/24 07/27/24 History release levothyroxine 75 mcg tablet 75 mcg PO DAILY 07/27/24 07/27/24 History spironolactone 100 mg tablet 100 mg PO QPM 07/27/24 07/27/24 History Laboratory Tests 07/27/24 07/27/24 10:19 10:42 WBC 13.1 H K/mm3 (4.5-10.0) RBC 4.43 M/mm3 (4.2-5.4) Hgb 13.6 g/dL (12.0-15.0) Hct 41.8 % (37.0-47.0) MCV 94.4 fl (80-100) MCH 30.7 pg (26-34) MCHC 32.5 g/dl (32-36) RDW 12.1 % (11.5-14.5) Plt Count 223 k/mm3 (150-375) MPV 10.2 fl (7.4-10.4) Immature Gran % (Auto) 0.5 % (0-0.5) Neut % (Auto) 83.6 H % (45.5-73.1) Lymph % (Auto) 10.1 L % (18.3-44.2) Sharp % (Auto) 5.0 % (2.6-8.5) Eos % (Auto) 0.5 % (0-4.4) Baso % (Auto) 0.3 % (0.2-1.2) Lymph # (Auto) 1.32 K/mm3 (0.9-3.2) Sharp # (Auto) 0.7 H K/mm3 (0.1-0.6) Eos # (Auto) 0.1 K/mm3 (0-0.3) Baso # (Auto) 0.0 K/mm3 (0.0-0.1) Abs Immat Gran (auto) 0.06 H K/mm3 (0.00-0.031) Absolute Neuts (auto) 10.9 H K/mm3 (1.3-6.7) Absolute Nucleated RBC 0.000 K/mm3 (0.0-0.012) Nucleated RBC % 0.0 % (0.0-0.2) Sodium 137 mmol/L (137-145) Potassium 4.3 mmol/L (3.4-5.0) Chloride 106 mmol/L (98-107) Carbon Dioxide 21 L mmol/L (22-30) Anion Gap 10 mmol/L (4-12) BUN 26 H mg/dL (7-17) Creatinine 0.90 mg/dL (0.7-1.0) Estim Creat Clear Calc 63 ml/min Estimated GFR > 60 (59 - ) Glucose 123 H mg/dL (65-110) Calcium 9.7 mg/dL (8.4-10.2) Total Bilirubin 0.5 mg/dL (0.2-1.3) AST 43 H U/L (14-36) ALT 52 H U/L (6-35) Alkaline Phosphatase 55 U/L (38-126) Total Protein 8.0 g/dL (6.3-8.2) Albumin 4.8 g/dL (3.5-5.1) Lipase 101 U/L (23-300) Urine Color Yellow (Yellow) Urine Appearance Clear (Clear) Urine pH 7.5 (5.0-9.0) Ur Specific [place] 1.016 (1.001-1.035) Urine Protein Negative mg/dL (Negative) Urine Glucose (UA) Negative mg/dL (Negative) Urine Ketones Negative mg/dL (Negative) Ur Blood (Man) 2+ H (Negative) Urine Nitrate Positive H (Negative) Urine Bilirubin Negative (Negative) Urine Urobilinogen 1.0 mg/dL (<2.0) Leukocyte Esterase Rfl Trace H DERIAN/UL (Negative) Urine RBC 11-20 H /hpf (0-2) Urine WBC 6-10 H /hpf (0-3) Ur Squamous Epith Cells None seen /hpf (Few) Urine Bacteria 1+ H /hpf Urine Casts 0-2 Patient hx anesthesia problems: none Family hx anesthesia problems: none Results Review: All pre-operative results and documents have been reviewed as part of the pre- operative evaluation. 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 Major depressive disorder, recurrent, unspecified Surgical History Surgical History History of back surgery History of breast augmentation History of hernia repair History of tonsillectomy Family History Family History Father Hypertension Mother Hypertension Carcinoma of colon Grandparent Acute myocardial infarction, Onset Age: 73 Family history of malignant neoplasm of breast, Onset Age: 80 Family history of cardiovascular disease Family history of malignant neoplasm of male breast Sibling Hypertension Social History Social History Social History: Caffeine-coffee daily Smoking status: Current some day smoker Tobacco type: cigarettes Additional smoking assessment comments: social smoker with drinking only Alcohol intake: current Alcohol use details: occasional Substance use: never Substance use type: does not use Do You Feel Safe in your Home?: Yes Lack of Transportation: No Lack of Food: Never True Current Housing: I Have Housing Concerned About Future Housing: No Difficulty Paying Gas/Electric Bills: No Difficulty Paying for Meds: No Currently Unemployed: No Education: Trade/Vocational Certificate Difficulty w/ Childcare or Family Care: No Living arrangements: with family Spiritual care concerns: No Anes - Eval Final PreProcedure Day of Procedure 07/27/24 15:12 Patient weight: overweight Heart: regular rate and rhythm Lungs: clear to auscultation Airway: Mallampati scale class II Neurological: alert and oriented Last oral intake: >/= 8 hours ASA classification: II Emergent: no Anesthetic plan: proceed Anesthesia type and monitoring: general LMA and standard monitoring Results Review: All pre-operative results and documents have been reviewed as part of the pre-operative evaluation. Informed Consent: The patient's anesthetic plan and its attendant risks and benefits were discussed with the patient/family/POA. Questions were solicited and answers provided to the satisfaction of the patient/family/POA.
[2024-07-27] MEDS: LACTATED RINGERS 1,000 ML 30 ML IV CONT (15:20)
--- NOTE | 2024-07-27 15:21 | WPDHPUPDATE1 ---
History and Physical Update Update Date/Time: 07/27/24 15:21 History and Physical has been reviewed, including an updated exam of the patient. There are NO changes in the patient's condition. Risks, benefits, and alternatives have been discussed and questions answered. Patient agrees to proceed with procedure.
[2024-07-27] MEDS: SCOPOLAMINE 1 MG PATCH 1 PATCH TRANSDERM (15:27)
[2024-07-27] MEDS: LIDOCAINE HCL 2% GEL UROJET 10 ML PKG MUCOUS MEM (15:44)
--- NOTE | 2024-07-27 15:52 | W.PM.PROC2 ---
Procedure Note - Detailed Date of Procedure 07/27/24 Pre-op Diagnosis R UPJ stone Post-op Diagnosis Same Procedure Performed Cystoscopy, right retrograde pyelogram, right ureteral stent insertion Surgeon Nathanael Porras MD Anesthesia General Description of Procedure Informed consent was obtained. Patient taken the operating. She was given preoperative IV antibiotics in the ER. She was induced anesthesia she was placed in the dorsal thigh position. She was prepped and draped normal sterile fashion. A plain film x-ray performed showed right moderate hydronephrosis down to the UPJ, left delicate collecting system from contrast injected IV for her recent CT scan. A 22 F cystoscope was inserted through the urethra into the bladder. Inspection of the bladder revealed no mucosal abnormalities. We cannulated the right ureteral orifice with a 5 F angiographic catheter and a retrograde pyelogram was performed that showed a delicate ureter on the right. We then advanced a wire beyond the level the stone into the collecting system. Over the wire we placed a 6 F variable length stent with a curl in the renal pelvis and curl in the bladder. The bladder was emptied. Lidocaine instilled. Patient was taken to PACU in stable condition Patient will follow-up as an outpatient for definitive stone management. Complications No immediate complications Condition Stable Disposition PACU
[2024-07-27] MEDS: ACETAMINOPHEN 325 MG TABLET 650 MG PO (17:05)
[2024-07-27] MEDS: SPIRONOLACTONE 50 MG TABLET 100 MG PO (21:39)
[2024-07-27] MEDS: IBUPROFEN 400 MG TABLET 800 MG PO (21:39)
[2024-07-27] MEDS: DULoxetine HCL 60 MG CAPSULE.DR PO (21:39)
[2024-07-27] MEDS: AMITRIPTYLINE HCL 25 MG TABLET 50 MG PO (21:39)
[2024-07-28] VITALS: BP 100/51; PULSE 79; RESP 18; TEMP 36.9; O2SAT 99
[2024-07-28 04:00] VITALS: BP 94/54; PULSE 85; RESP 18; TEMP 36.7; O2SAT 96
[2024-07-28] MEDS: LEVOTHYROXINE SODIUM 75 MCG TABLET PO (05:57)
[2024-07-28] MEDS: SODIUM CHLORIDE 0.9% IV 1,000 ML 125 ML IV CONT (06:02)
[2024-07-28 06:15] LABS: Basophils Percent Auto 0.2 % (0.2-1.2); Hematocrit 32.6 % (37.0-47.0); Hemoglobin 10.8 g/dL (12.0-15.0); Immature Granulocyte Absolute 0.08 K/mm3 (0.00-0.031); Immature Granulocyte Percent A 0.6 % (0-0.5); Lymphocytes Absolute Auto 0.74 K/mm3 (0.9-3.2); Mean Corpuscular HGB Conc 33.1 g/dl (32-36); Mean Corpuscular Hemoglobin 31.3 pg (26-34); Mean Corpuscular Volume 94.5 fl (80-100); Mean Platelet Volume 10.2 fl (7.4-10.4); Monocytes Absolute Auto 0.9 K/mm3 (0.1-0.6); Neutrophils Absolute Auto 10.7 K/mm3 (1.3-6.7); Neutrophils Percent Auto 86.2 % (45.5-73.1); Platelet Count Result 180 k/mm3 (150-375); Red Blood Count 3.45 M/mm3 (4.2-5.4); Red Cell Distribution Width 12.5 % (11.5-14.5); White Blood Count 12.4 K/mm3 (4.5-10.0)
[2024-07-28 06:31] LABS: Alanine Aminotransferase 118 U/L (6-35); Albumin Level 3.4 g/dL (3.5-5.1); Alkaline Phosphatase 43 U/L (38-126); Anion Gap 3 mmol/L (4-12); Aspartate Amino Transferase 83 U/L (14-36); Bilirubin,Total 0.7 mg/dL (0.2-1.3); Blood Urea Nitrogen 14 mg/dL (7-17); Calcium 8.3 mg/dL (8.4-10.2); Carbon Dioxide 27 mmol/L (22-30); Chloride 109 mmol/L (98-107); Estimated CRCL calculation 63 ml/min; Estimated Glomerular Filt Rate > 60; Glucose 111 mg/dL (65-110); Potassium 3.9 mmol/L (3.4-5.0); Sodium 139 mmol/L (137-145)
[2024-07-28 08:10] VITALS: BP 95/55; PULSE 68; RESP 18; TEMP 36.7; O2SAT 100
[2024-07-28] MEDS: TAMSULOSIN HCL 0.4 MG CAPSULE PO (09:29)
[2024-07-28] MEDS: amLODIPine BESYLATE 2.5 MG TABLET PO (09:29)
[2024-07-28] MEDS: IBUPROFEN 400 MG TABLET 800 MG PO (12:19)
--- NOTE | 2024-07-28 13:42 | P.DS_ITS ---
DS: Admitting Diagnosis Discharge Date 07/28/24 Admitting Diagnosis Obstructing right kidney stone DS: Discharge Diagnosis Discharge Diagnosis (1) UTI (urinary tract infection): Qualifiers: Urinary tract infection type: acute cystitis Hematuria presence: with hematuria Qualified Code(s): N30.01 - Acute cystitis with hematuria Code(s): N39.0 - Urinary tract infection, site not specified Status: Acute (2) Obstruction of right ureteropelvic junction (UPJ) due to stone: Code(s): N20.1 - Calculus of ureter Status: Acute DS: Summary Hospital Course Reason for hospitalization: Obstructing right kidney stone Hospital Course: 53-year-old female with past medical history of hypertension, GERD, hypothyroidism presented with right-sided flank pain,CT of the abdomen/pelvis showed an obstructing 5 mm stone at the right ureteropelvic junction with mild right hydronephrosis and delayed right nephrogram, cholelithiasis, extensive instrumented posterior spinal fusion, along with possible UTI. Urology was consulted. Patient was treated with IV fluids, ceftriaxone, pain control, underwent Cystoscopy, right retrograde pyelogram, right ureteral stent insertion. Outpatient follow-up appointment with Urology has been made for definitive treatment of stone. Patient will be discharged on 2 week course of Ceftin. Patient would follow up with Urology as outpatient. Patient is being discharged home in stable condition. Status at Discharge Functional status at discharge: independent ambulation Overall status at discharge: patient is back to baseline Time Spent with Patient Time attestation: Total time spent providing and/or coordinating discharge services: Time spent: Greater than 30 minutes Exam Const: General: comfortable HENMT: Mouth: Yes moist mucous membranes Eyes: Sclera: sclerae normal Neck: Neck: supple Resp: Effort & Inspection: normal respiratory effort Auscultation: clear to auscultation bilaterally Cardio: Rate: regular rate Rhythm: regular rhythm GI: GI Palp: Yes Soft to palpation Auscultation: normal bowel sounds Extrem: General: normal to inspection Psych: Mental Status: mental status grossly normal DS: Data Data Completed and Pending Labs on day of discharge: Labs from last 24 hours 07/28/24 05:37 WBC 12.4 H RBC 3.45 L Hgb 10.8 L Hct 32.6 L MCV 94.5 MCH 31.3 MCHC 33.1 RDW 12.5 Plt Count 180 MPV 10.2 Immature Gran % (Auto) 0.6 H Neut % (Auto) 86.2 H Lymph % (Auto) 6.0 L [place] % (Auto) 7.0 Eos % (Auto) 0.0 Baso % (Auto) 0.2 Lymph # (Auto) 0.74 L [place] # (Auto) 0.9 H Eos # (Auto) 0.0 Baso # (Auto) 0.0 Abs Immat Gran (auto) 0.08 H Absolute Neuts (auto) 10.7 H Absolute Nucleated RBC 0.000 Nucleated RBC % 0.0 Sodium 139 Potassium 3.9 Chloride 109 H Carbon Dioxide 27 Anion Gap 3 L BUN 14 D Creatinine 0.90 Estim Creat Clear Calc 63 Estimated GFR > 60 Glucose 111 H Calcium 8.3 L Total Bilirubin 0.7 AST 83 H ALT 118 H Alkaline Phosphatase 43 Total Protein 6.0 L Albumin 3.4 L Discharge Plan Discharge Attending physician on discharge: Elly Barth Consulting providers: Nathanael Porras Discharging Clinician: Elly Barth Anticipated Discharge Date/Time: 07/28/24 13:40 Patient Disposition: Home, Self-Care Activity: as tolerated Diet: as tolerated and regular Patient Instructions: Antibiotic Form Stand Alone Forms: General Discharge Information Follow-up/Referrals: Elaine Zee FNP-C [Primary Care Provider] - 2 Weeks Nathanael Porras MD [Physician] - Keep Reg. Scheduled Appt. Discharge Medications: New tamsulosin 0.4 mg Capsule 0.4 mg PO QAM Qty: 30 0RF cefdinir 300 mg capsule 300 mg PO Q12H 14 Days Qty: 28 0RF Continued ibuprofen 200 mg Capsule 800 mg PO TID PRN (Reason: Back Pain) Patient Comments: takes for back pain progesterone micronized 100 mg capsule 100 mg PO HS estradiol 0.5 mg/0.5 gram (0.1 %) gel in packet 1 packet topical DAILY spironolactone 100 mg tablet 100 mg PO QPM amlodipine 2.5 mg tablet 2.5 mg PO DAILY amitriptyline 50 mg tablet 50 mg PO HS levothyroxine 75 mcg tablet 75 mcg PO DAILY Rx Instructions: TAKE 1 TABLET BY MOUTH EVERY DAY duloxetine 60 mg capsule,delayed release(DR/EC) 60 mg PO QPM hydrocodone-acetaminophen 5-325 mg tablet 1 tablet PO Q12H PRN (Reason: pain) Qty: 60 0RF Patient Comments: Uses prn for back pain Date of admission: 07/27/24 12:38 Primary Care Provider: Elaine Zee Admitting Provider: Mj Le Attending physician on admission: Mj Le Condition: Stable
--- NOTE | 2024-07-28 13:54 | WPDANESPN ---
Anes - Prog Note Post-Op Date/Time: 07/28/24 13:54 Cardiovascular status: normal Respiratory status: normal Airway patency: baseline Mental status: baseline Post-Op hydration status: normal Vital Signs: Last Vital Signs Temp 36.7 C 07/28/24 08:10 Pulse 68 07/28/24 08:10 Resp 18 07/28/24 08:10 BP 95/55 L 07/28/24 08:10 Pulse Ox 100 07/28/24 08:10 O2 Del Method Room Air 07/27/24 20:00 O2 Flow Rate 8 07/27/24 16:00 Pain Score (VAS): 0 I/O: Intake & Output 07/27/24 07/28/24 07/28/24 23:59 07:59 15:59 Intake Total 1640 1129.2 Output Total 1300 500 Balance 340 629.2 Laboratory Tests 07/28/24 05:37 07/28/24 05:37 07/28/24 05:37 WBC 12.4 H RBC 3.45 L Hgb 10.8 L Hct 32.6 L MCV 94.5 MCH 31.3 MCHC 33.1 RDW 12.5 Plt Count 180 MPV 10.2 Immature Gran % (Auto) 0.6 H Neut % (Auto) 86.2 H Lymph % (Auto) 6.0 L [place] % (Auto) 7.0 Eos % (Auto) 0.0 Baso % (Auto) 0.2 Lymph # (Auto) 0.74 L [place] # (Auto) 0.9 H Eos # (Auto) 0.0 Baso # (Auto) 0.0 Abs Immat Gran (auto) 0.08 H Absolute Neuts (auto) 10.7 H Absolute Nucleated RBC 0.000 Nucleated RBC % 0.0 Sodium 139 Potassium 3.9 Chloride 109 H Carbon Dioxide 27 Anion Gap 3 L BUN 14 D Creatinine 0.90 Estim Creat Clear Calc 63 Estimated GFR > 60 Glucose 111 H Calcium 8.3 L Total Bilirubin 0.7 AST 83 H ALT 118 H Alkaline Phosphatase 43 Total Protein 6.0 L Albumin 3.4 L Post-procedural complaints: none Patient Feedback: Patient satisfied with anesthetic care.
== END 2024-07-28 14:35 | disposition home or self-care (01) ==
LOC: ANHED 12:38 → ANH2MED 13:47
PROVIDERS: Student in an Organized Health Care Education/Training Program; Urology; Admitting Provider General Practice; Emergency Provider Physician Assistant; PCP Nurse Practitioner Family; Visit Provider Internal Medicine
PROC: (CPT 52352; principal; 2024-07-27 15:00)
DX: N13.2 Hydronephrosis with renal and ureteral calculous obstruction (principal); N30.01 Acute cystitis with hematuria; R74.01 Elevation of levels of liver transaminase levels; E03.9 Hypothyroidism, unspecified; K21.9 Gastro-esophageal reflux disease without esophagitis; I10 Essential (primary) hypertension; F33.9 Major depressive disorder, recurrent, unspecified; F17.210 Nicotine dependence, cigarettes, uncomplicated; Z98.1 Arthrodesis status
CPT/HCPCS: 52332; 36415; 74018; 74177; 74420; 80053; 81001; 83690; 85025; 87086; 96365; 96367; 96375; 96376; 99285; A9270; C1769; C2617; G0378; J0696; J1100; J1171; J1741; J2270; J2405; J2704; J7030; J7120; Q9967

== ENCOUNTER 2024-09-20 14:19 | Outpatient (CLI) | payer BC, SELFPAY ==
--- NOTE | ~2024-09-20 | XR_ITS ---
EXAMINATION: XR abdomen/kub 1V DATE: 09/20/2024 14:34 INDICATION: Right ureteral stone. TECHNIQUE: A supine view of the abdomen on 2 radiographs was obtained. COMPARISON: CT abdomen and pelvis 07/27/2024 FINDINGS: There are no dilated loops of bowel. There is a large volume of stool in the colon. There a re phleboliths in left pelvis. There is instrumentation of the spine. IMPRESSION: 1. No visible urolithiasis. Reviewed, dictated and finalized at location A. [facility] IMPRESSION: 1. No visible urolithiasis.
--- OUTSIDE RECORDS SUMMARY | 2024-09-20 14:57 | XMS_ITS | Encounter Summary ---
[facility] Organization [facility] Address [address] [place] [address] Care Team Providers Care Counter Sales Representative Name Role Phone Ned Santana MD Primary Care Provider [phone] Encounter Details Date Type Department Care Team (Latest Contact Info) Description 04/22/1999 Outpatient Historical [facility] Richard Hidalgo MD NO ADDRESS ON FILE Scoliosis (and kyphoscoliosis), idiopathic (Primary Dx) Social History Tobacco Use Types Packs/Day Years Used Date Smoking Tobacco: Never Assessed Comments Unknown Sex and Gender Information Value Date Recorded Sex Assigned at Female 05/06/2024 10:19 AM CDT Legal Sex Female 2:37 AM TEAROOM HOSTESS Gender Identity Female 05/06/2024 10:19 AM CDT Sexual Orientation Not on file documented as of this encounter Plan of Treatment Upcoming Encounters Date Type Department Care Team (Late st Contact Info) Description 10/04/2024 12:20 PM TEAROOM HOSTESS Office Visit [facility] [place] [address] [facility] [address] [place] [address] Santiago Morales MD [facility] [address] [facility] [address] [facility] [address] documented as of this encounter Visit Diagnoses Diagnosis Scoliosis (and kyphoscoliosis), idiopathic- Primary documented in this encounter Care Teams Counter Sales Representative Relationship Specialty Start Date End Date Ned Santana MD [address] [place] [address] PCP - General 01/20/02 documented as of this encounter
--- OUTSIDE RECORDS SUMMARY | 2024-09-20 14:57 | XMS_ITS | Clinical Summary ---
Author Organization [facility] Address [address] [place] [address] Care Team Providers Care Spiral Winding Machine Helper Name Role Phone Unknown, Provider Primary Care Provider Unavaila ble Source Comments [facility],non-owned Affiliates and Associated Physician Practices is amultiple site organization consisting of ambulatory clinics and hospital sitesin [place], [place], [place] and [place]. This disclosure is being madepursuant to the Care Everywhere program and may not contain all information available regarding this patient. Last updated 18.[facility] Allergies No known active allergies Medications * Be aware that medications may not be up to date on this document. Alwaysverify current medications with the patient. Medication Sig Dispensed Refills Start Date End Date Status amitriptyline (Elavil) 50 MG tablet Take 1 (one) tablet by mouth once daily 02/13/2023 Active amLODIPine (Norvasc) 2.5 MG tablet Take 1 (one) tablet by mouth once daily 03/18/2023 Active DULoxetine (Cymbalta) 60 MG capsule Take 1 (one) capsule by mouth once daily 01/23/2023 Active levothyroxine (Synthroid) 75 MCG tablet Take 1 (one) tablet by mouth once daily 02/05/2023 Active HYDROcodone-acetamino phen ([place]) 5-325 MG tablet Take 1 (one) tablet by mouth every 12 hours as needed FOR PAIN 01/16/2023 Active Progesterone 100 MG capsule Take 1 (one) capsule by mouth once daily 03/09/2023 Active spironolactone (Aldactone) 100 MG tablet Take 1 (one) tablet by mouth once daily 02/26/2023 Active triamcinolone acetonide (Kenalog) 0.1 % cream Apply to affected area 2 times daily 06/21/2024 Active Estradiol 0.5 MG/0.5GM Apply 0.5 mg to skin once daily 05/06/2024 Active Active Problems Problem Noted Date Diagnosed Date Nail abnormalities 08/25/2017 Carpal tunnel syndrome 10/11/2012 Fracture of lumbar vertebra with nonunion 2012 Scoliosis 10/11/2012 Pseudoarthrosis of lumbar spine 10/11/2012 Encounters Date Type Department Care Team Description 06/30/2024 9:45 AM HALF BACKER Office Visit [facility] [address] [place] [phone] Tod Dudley MD Padhye, Kedar, MD Lumbar radiculopathy (Primary Dx); Other idiopathic scoliosis, unspecified spinal region 06/30/2024 8:58 AM HALF BACKER - 06/30/2024 11:59 PM HALF BACKER Hospital Encounter [facility] [address] [place] [address] Fabio Cabrera MD Discharge Disposition: Home or Self Care 06/30/2024 Travel 06/20/2024 Orders Only [facility] [address] [place] [phone] Fabio Cabrera MD Other idiopathic scoliosis, unspecified spinal region ; Lumbar radiculopathy from Last 3 Months Social History Tobacco Use Types Packs/Day Years Used Date Smoking Tobacco: Some Days Cigarettes Smokeless Tobacco: Never Tobacco Cessation:Ready to Q uit: Not Asked; Counseling Given: Not Answered Alcohol Use Standard Drinks/Week Comments Yes 0 (1 standard drink = 0.6 oz pur e alcohol) PHQ-2 Answer Date Recorded Patient Health Questionnaire-2 Score 0 06/28/2024 Sex and Gender Information Value Date Recorded Sex Assigned at Not on file Gender Identity Not on file Sexual Orientation Not on file Last Filed Vital Signs Vital Sign Reading Time Taken Comments Blood Pressure 128/82 2013 9:48 AM CDT Pulse - - Temperature - - Respiratory Rate - - Oxygen Saturation - - Inhaled Oxygen Concentration - - Weight 76.2 kg (168 lb) 06/29/2023 10:03 AM HALF BACKER Height 170.2 cm (5' 7 ) 04/13/2023 10:11 AM CDT Body Mass Index 26.31 04/13/2023 10:11 AM CDT Plan of Treatment Upcoming Encounters Date Type Department Care Team (Late st Contact Info) Description 06/29/2025 9:00 AM HALF BACKER Office Visit [facility] [address] [place] [address] Fabio Cabrera MD [facility] [facility] [place] [address] Health Maintenance Due Date Last Done Comments COLOGUARD (AGES 45-75) - COL ON CA SCREENING 1972 COLON MONITORING 1972 COLONOSCOPY - COLON CA SCREENING 1972 CT COLONOGRAPHY - COLON CA SCREENING 1972 Colorectal Cancer Screening 1972 FIT - COLON CA SCREENING 1972 FLEX SIG - COLON CA SCREENING 1972 LIPID TESTING 1972 PAP SMEAR 1972 HIV SCREENING 11/15/1987 HEPATITIS C SCREENING 11/10/1990 DTAP/TDAP/TD VACCINES (1 - Tdap) 11/15/1991 HEPATITIS B VACCINE (1 of 3 - 19+ 3-dose series) 11/15/1991 PNEUMOCOCCAL VACCINE 50+ (1 of 2 - PCV) 11/15/1991 PNEUMOCOCCAL VACCINE (1 of 2 - PCV) 11/15/1991 ZOSTER VACCINE (1 of 2) 2022 MAMMOGRAM 08/22/2023 08/22/2021 COVID-19 VACCINE (1 - 2023-2 5 season) 2024 INFLUENZA VACCINE (#1) 2024 DEPRESSION SCREENING 08/24/2024 HIB VACCINE Aged Out No longer eligi ble based on patient's age to complete this topic HPV VACCINE Aged Out No longer eligi ble based on patient's age to complete this topic MENINGOCOCCAL (Group B) VACCINE Aged Out No longer eligible based on patient's age to complete this topic MENINGOCOCCAL VACCINE Aged Out No michele dax eligible based on patient's age to complete this topic Procedures Procedure Name Priority Date/Time Associated Diagnosis Comments XR SKULL TO ANKLE GUILLERMO Routine 06/30/2024 9:03 AM HALF BACKER Other idiopathic scoliosis, unspecified spinal region Lumbar radiculopathy from Last 3 Months Results * XR Skull To Ankle Guillermo (06/30/2024 9:03 AM HALF BACKER) Anatomical Region Laterality Modality Digital Radiogra phy 06/30/2024 9:05 AM HALF BACKER Impressions 06/30/2024 9:51 AM HALF BACKER IMPRESSION: 1.Unchanged interpreted fusion T5 L5 with the bilateral rods broken at T12-L1 and a set screw at L5 to SPECT out, unchanged prior. 2.Similar balance within the coronal plane, slight improvement in the sagittal plane. > Dictated by Maxime Grady DO (resident care aide). I, Moose Allan MD have personally reviewed and interpreted this examination/study. > Interpreting Provider: Moose Allan MD on 06/30/2024 9:51 AM Narrative 06/30/2024 9:51 AM HALF BACKER PROCEDURE: ??XR SKULL TO ANKLE GUILLERMO DATE/TIME OF EXAM: ??06/30/2024 9:03 AM CLINICAL INFORMATION: None relevant/not provided if blank. Indication: M41.20: Other idiopathic scoliosis, unspecified spinal region M54.16: Lumbar radiculopathy COMPARISON: X-rays: Ankle from 06/29/2023 FINDINGS: Redemonstration of findings of injury to spinal fusion from T5 to L5 with posterior rods, screws, hooks, and wires. The bilateral rods are again demonstrated to be broken at the T12-L1 level, unchanged from prior. Background screw is also again seen visible posterior to L5, unchanged from prior. There is scoliosis of the thoracolumbar curvature. Balance in the coronal plane is +3.0 cm, similar to prior. Balanced within the sagittal plane measures 4.5 cm, slightly improved from prior in which it measured 6.2 cm. There is degenerative disc disease at L5-S1. There is arthritis at the bilateral sacroiliac joints. The skull and the bilateral Lower extremity's are unremarkable. Procedure Note Moose Allan MD - 06/30/2024 PROCEDURE: XR SKULL TO ANKLE GUILLERMO DATE/TIME OF EXAM: 06/30/2024 9:03 AM CLINICAL INFORMATION: None relevant/not provided if blank. Indication: M41.20: Other idiopathic scoliosis, unspecified spinalregion M54.16: Lumbar radiculopathy COMPARISON: X-rays: Ankle from 06/29/2023 FINDINGS: Redemonstration of findings of injury to spinal fusion from T5 to L5with posterior rods, screws, hooks, and wires. The bilateral rods are again demonstrated to be broken at the T12-L1 level, unchanged from prior. Background screw is also again seen visible posterior to L5, unchangedfrom prior. There is scoliosis of the thoracolumbar curvature. Balance in the coronal plane is +3.0 cm, similar to prior. Balancedwithin the sagittal plane measures 4.5 cm, slightly improved from prior inwhich it measured 6.2 cm. There is degenerative disc disease at L5-S1. Thereis arthritis at the bilateral sacroiliac joints. The skull and thebilateral Lower extremity's are unremarkable. IMPRESSION: 1.Unchanged interpreted fusion T5 L5 with the bilateral rods broken at T12-L1 and a set screw at L5 to SPECT out, unchanged prior. 2.Similar balance within the coronal plane, slight improvement in the sagittal plane. > Dictated by Maxime Grady DO (resident care aide). I, Moose Allan MD have personally reviewed and interpreted this examination/study. > Interpreting Provider: Moose Allan MD on 49:51 AM Fabio Cabrera MD DIAGNOSTIC IMAGING O RDERABLES from Last 3 Months Care Teams Spiral Winding Machine Helper Relationship Specialty Start Date End Date Unknown, Provider PCP - General 06/30/24
--- OUTSIDE RECORDS SUMMARY | 2024-09-20 14:57 | XMS_ITS | Clinical Summary ---
Author Organization [facility] Care Team Providers Care Professional Bass Fisher Name Role Phone Unavailable Primary Care Provider Unavailabl e Social History Tobacco Use Types Packs/Day Years Used Date Smoking Tobacco: Never Assessed Comments Unknown Sex and Gender Information Value Date Recorded Sex Assigned at Not on file Legal Sex Female 9:43 AM NEWSPAPER CARRIERS SUPERVISOR Gender Identity Not on file Sexual Orientation Not on file Plan of Treatment Health Maintenance Due Date Last Done Comments Hepatitis C Virus (HCV) Screening 1972 TdaP Immunization 1972 Hepatitis B Immunization (1 of 3 - 19+ 3-dose series) 11/15/1991 Pap Smear 1993 Cervical Cancer Screening (CCS) 2002 HPV/Cotest 2002 Colonoscopy 2017 Colorectal Cancer Screening 2017 Cologuard 2022 Immunochemical Fecal Occult Blood 2022 Mammogram 2022 Pneumococcal Immunization (5 0+ years) (1 of 1 - PCV) 2022 Zoster Immunization (1 of 2) 2022 Influenza Immunization (#1) 04/24/202405/24, 06/23/2019, 07/21/2018 SARS-COV-2 Immunization ( - 2023- season) 2024 Respiratory Syncytial Virus (RSV) Immunization (Adult) (1 - 1-dose 75+ series) 11/15/2047 Meningococcal Immunization (ACWY) Aged Out No longer eligible b ased on patient's age to complete this topic Pneumococcal Immunization Combined Aged Out No longer eligible b ased on patient's age to complete this topic Rotavirus Immunization Aged Out No lo nger eligible based on patient's age to complete this topic
--- OUTSIDE RECORDS SUMMARY | 2024-09-20 14:57 | XMS_ITS | Referral Summary ---
Author Organization [facility] Address [address] [place] [address] Care Team Providers Care School Business Administrator Name Role Phone Unknown, Provider Primary Care Provider Unavaila ble Source Comments [facility],non-owned Affiliates and Associated Physician Practices is amultiple site organization consisting of ambulatory clinics and hospital sitesin [place], [place], [place] and [place]. This disclosure is being madepursuant to the Care Everywhere program and may not contain all information available regarding this patient. Last updated 18.[facility] Encounters Date Type Department Care Team Description 06/30/2024 8:58 AM APPLICATION SUPPORT ADMINISTRATOR - 06/30/2024 11:59 PM APPLICATION SUPPORT ADMINISTRATOR Hospital Encounter [facility] DIAGNOSTIC RAD OP [address] [place] [phone] Fabio Cabrera MD Discharge Disposition: Home or Self Care 06/30/2024 Travel 06/30/2024 9:45 AM APPLICATION SUPPORT ADMINISTRATOR Office Visit [facility] [address] [place] [phone] Tod Dudley MD Padhye, Kedar, MD Lumbar radiculopathy (Primary Dx); Other idiopathic scoliosis, unspecified spinal region 06/20/2024 Orders Only [facility] [address] [place] [phone] Fabio Cabrera MD Other idiopathic scoliosis, unspecified spinal region ; Lumbar radiculopathy from Last 3 Months Allergies No known active allergies Medications * [...] mouth once daily 02/05/2023 Active HYDROcodone-acetamino phen ([place]) 5-325 MG tablet Take 1 (one) tablet [...] Scoliosis 10/11/2012 Pseudoarthrosis of lumbar spine 10/11/2012 Social History Tobacco Use Types Packs/Day Years [...] 76.2 kg (168 lb) 06/29/2023 10:03 AM APPLICATION SUPPORT ADMINISTRATOR Height 170.2 cm (5' 7 ) 04/13/2023 10:11 AM CDT Body Mass Index 26.31 04/13/2023 10:11 AM CDT Plan of Treatment Upcoming Encounters Date Type Department Care Team (Late st Contact Info) Description 06/29/2025 9:00 AM APPLICATION SUPPORT ADMINISTRATOR Office Visit [facility] [address] [place] [address], [place] [address] Fabio Cabrera MD [address] [place] [address] OF [place] [address] Procedures Procedure Name Priority Date/Time Associated Diagnosis Comments XR SKULL TO ANKLE GUILLERMO Routine 06/30/2024 9:03 AM APPLICATION SUPPORT ADMINISTRATOR Other idiopathic scoliosis, unspecified spinal region Lumbar radiculopathy from Last 3 Months Results * XR Skull To Ankle Guillermo (06/30/2024 9:03 AM APPLICATION SUPPORT ADMINISTRATOR) Anatomical Region Laterality Modality Digital Radiogra phy 06/30/2024 9:05 AM APPLICATION SUPPORT ADMINISTRATOR Impressions 06/30/2024 9:51 AM APPLICATION SUPPORT ADMINISTRATOR IMPRESSION: 1.Unchanged interpreted fusion T5 L5 with the bilateral rods broken at T12-L1 and a set screw at L5 to SPECT out, unchanged prior. 2.Similar balance within the coronal plane, slight improvement in the sagittal plane. > Dictated by Maxime Grady DO (residential instructor). I, Moose Allan MD have personally reviewed and interpreted this examination/study. > Interpreting Provider: Moose Allan MD on 06/30/2024 9:51 AM Narrative 06/30/2024 9:51 AM APPLICATION SUPPORT ADMINISTRATOR PROCEDURE: ??XR SKULL TO ANKLE GUILLERMO DATE/TIME [...] plane. > Dictated by Maxime Grady DO (residential instructor). I, Moose Allan MD have personally reviewed and interpreted this examination/study. > Interpreting Provider: Moose Allan MD on 49:51 AM Faibo Cabrera MD DIAGNOSTIC IMAGING O RDERABLES from Last 3 Months Care Teams School Business Administrator Relationship Specialty Start Date End Date Unknown, Provider PCP - General 06/30/24
--- OUTSIDE RECORDS SUMMARY | 2024-09-20 14:57 | XMS_ITS | Encounter Summary ---
Author Organization [facility] Address [address] [facility] [place] [address] Care Team Providers Care Principal Clerk Name Role Phone Darian Santana MD Primary Care Provider [phone] Unknown, Provider Primary Care Provider Unavaila ble Encounter Details Date Type Department Care Team (Late st Contact Info) Description 06/29/2019 Lab Requisition [facility] [address] [place] [phone] Darrell [place] [address] Social History Tobacco Use Types Packs/Day Years Used Date Smoking Tobacco: Never Smokeless Tobacco: Never Alcohol Use Standard Drinks/Week Comments Yes 0 (1 standard drink = 0.6 oz pur e alcohol) Sex and Gender Information Value Date Recorded Sex Assigned at Not on file Gender Identity Not on file Sexual Orientation Not on file documented as of this encounter Plan of Treatment Upcoming Encounters Date Type Department Care Team (Late st Contact Info) Description 06/29/2025 9:00 AM FILING AND POLISHING SUPERVISOR Office Visit [facility] [address] [place] [phone] Fabio Cabrera MD [address] [place] [address] [place] [address] documented as of this encounter Procedures Procedure Name Priority Date/Time Associated Diagnosis Comments DERMATOPATHOLOGY Routine 06/28/2019 12:0 0 AM FILING AND POLISHING SUPERVISOR documented in this encounter Results * DERMATOPATHOLOGY (06/28/2019 12:00 AM FILING AND POLISHING SUPERVISOR) Case Report Dermatopathology Report ? Case: [id number] ? Authorizing Provider: ??Darrell Hartman MD ?Collected: ? 06/28/2019 12:00 AM ? Ordering Location: ? [facility] DermPath Lab ?Received: ?06/29/2019 12:44 PM ? Pathologist: ? Bentley Murray MD ? Specimen: ?Skin, left great toenail ? 9 3:45 PM [facility] DERMATOPATHOLOGY LABORATORY Final Diagnosis Specimen A. SKIN, left great toenail: COMPACT KERATIN CONSISTENT WITH NAIL PLATE (L60.8) 9 3:45 PM [facility] DERMATOPATHOLOGY LABORATORY Clinical History R/O onychomycosis. 9 3:45 PM [facility] DERMATOPATHOLOGY LABORATORY Gross Description Specimen A: Received is one formalin filled container labeled with the patient's name and designated left great toenail. The specimen consists of a nail clipping measuring 4q3p2yy. 3:45 PM [facility] DERMATOPATHOLOGY LABORATORY Microscopic Description Specimen A. SKIN, left great toenail: Sections show nail plate. Periodic acid-Ivy (PAS) stained sections do not highlight fungal organisms. 3:45 PM [facility] DERMATOPATHOLOGY LABORATORY Disclaimer An external and internal positive and negative controls are appropriate for the histochemical, immunohistochemical and immunofluorescence stain(s) in this case (if any), except where stated explicitly. The performance characteristics of the stain(s) cited in this report were developed and its performance characteristic determined by the Dermatopathology Laboratory at [facility], directed by Dr. Cosme Murray. These tests need not be, and therefore are not, approved by the [place] Food and Drug Administration. The tests are used for clinical purposes. Billing Codes Specimen Charges Stain Charges 50712 1 50269 1 3:45 PM [facility] DERMATOPATHOLOGY LABORATORY Embedded Images 3:45 PM [facility] DERMATOPATHOLOGY [facility]ORATORY Pathology/Cytolog y TISSUE SPECIMEN FROM SKIN / Unknown 06/28/2019 06/29/2019 12:44 PM [facility] Darrell Hartman MD LAB - PATHOLOGY/CYTO LOGY ORDERABLES DERMATOPATHOLOGY LABORATORY [facility] - Department of Dermatology [address] [place] [address] [address] [phone] documented in this encounter Visit Diagnoses Not on filedocumented in this encounter Care Teams Principal Clerk Relationship Specialty Start Date End Date Darian Santana MD [address] [place] [id number] PCP - General 05/26/18 06/29/24 Unknown, Provider PCP - General 06/30/24 documented as of this encounter
--- OUTSIDE RECORDS SUMMARY | 2024-09-20 14:57 | XMS_ITS | Encounter Summary ---
Author Organization [facility] Address [address] [place] [address] Care Team Providers Care Associate Producer Name Role Phone Darian Santana MD Primary Care Provider [phone] Unknown, Provider Primary Care Provider Unavaila ble Encounter Details Date Type Department Care Team (Late st Contact Info) Description 01/11/2020 Lab Requisition [facility] [address] [place] [phone] Darrell [place] [address] Social History Tobacco Use Types [...] st Contact Info) Description 06/29/2025 9:00 AM MASS SPEC Office Visit [facility] [address] [place] [phone] Fabio Cabrera MD [address] [place] [address] [place] [address] documented as of this encounter Procedures Procedure Name Priority Date/Time Associated Diagnosis Comments DERMATOPATHOLOGY Routine 01/10/2020 12:0 0 AM CDT documented in this encounter Results * DERMATOPATHOLOGY (01/10/2020 12:00 AM CDT) Case Report Dermatopathology Report ? Case: [id number] ? Authorizing Provider: ??Darrell Hartman MD ?Collected: ? 01/10/2020 12:00 AM ? Ordering Location: ? [facility] Lab ?Received: ?01/11/2020 11:48 AM ? Pathologist: ? Bentley Murray MD ? Specimens: ?? A) - Skin, right breast ? B) - Skin, left breast ? 0 3:46 PM CDT DERMATOPATHOLOGY LABORATORY Final Diagnosis Specimen A. SKIN, right breast: LICHEN PLANUS-LIKE KERATOSIS (BENIGN LICHENOID KERATOSIS) (L82.1) Specimen B. SKIN, left breast: LICHEN PLANUS-LIKE KERATOSIS (BENIGN LICHENOID KERATOSIS) (L82.1) 0 3:46 PM CDT DERMATOPATHOLOGY LABORATORY Clinical History A-B: R/O BCC, SCC, Camejo's, HAK. 0 3:46 PM CDT DERMATOPATHOLOGY LABORATORY Gross Description Specimen A: Received is one formalin filled container labeled with the patient's name and designated right breast. The specimen consists of a shave biopsy measuring 1b4i0zm. Jar 0. Specimen B: Received is one formalin filled container labeled with the patient's name and designated left breast. The specimen consists of a shave biopsy measuring 0e9o1zo. Jar 0. 0 3:46 PM CDT DERMATOPATHOLOGY LABORATORY Microscopic Description Specimen A. SKIN, right breast: The epidermis is mildly acanthotic. There is a lichenoid infiltrate with vacuolar changes of basilar keratinocytes and scattered necrotic keratinocytes. Specimen B. SKIN, left breast: The epidermis is mildly acanthotic. There is a lichenoid infiltrate with vacuolar changes of basilar keratinocytes and scattered necrotic keratinocytes. 0 3:46 PM CDT DERMATOPATHOLOGY LABORATORY Disclaimer An external and internal positive and negative controls are appropriate for the histochemical, immunohistochemical and immunofluorescence stain(s) in this case (if any), except where stated explicitly. The performance characteristics of the stain(s) cited in this report were developed and its performance characteristic determined by the Dermatopathology Laboratory at [facility], directed by Dr. Cosme Murray. These tests need not be, and therefore are not, approved by the [place] Food and Drug Administration. The tests are used for clinical purposes. Billing Codes Specimen Charges Stain Charges 75984 46553 1 1 0 3:46 PM CDT DERMATOPATHOLOGY LABORATORY Embedded Images 0 3:46 PM CDT DERMATOPATHOLOGY LABORATORY Pathology/Cytology TISSUE SPECIMEN FROM SKIN / Unknown 01/10/2020 01/11/2020 11:48 AM CDT Miscellaneous samples (specimen) TISSUE SPECIMEN FROM SKIN / Unknown 01/10/2020 01/11/2020 11:48 AM CDT Darrell Hartman MD LAB - PATHOLOGY/CYTO LOGY ORDERABLES DERMATOPATHOLOGY LABORATORY [facility] - Department of Dermatology [facility] [phone] documented in this encounter Visit Diagnoses Not on filedocumented in this encounter Care Teams Associate Producer Relationship Specialty Start Date End Date Darian Santana MD [address] [place] [address] PCP - General 05/26/18 06/29/24 Unknown, Provider PCP - General 06/30/24 documented as of this encounter
--- OUTSIDE RECORDS SUMMARY | 2024-09-20 14:57 | XMS_ITS | Patient Health Summary ---
Author Organization [facility] [employer] Address [address] [place] [address] Care Team Providers Care Research Study Assistant Name Role Phone Unknown, Provider Primary Care Provider Unavaila ble Note from [facility],non-owned Affiliates and Associated Physician Practices is amultiple site organization consisting of ambulatory clinics and hospital sitesin [place], [place], [place] and [place]. This disclosure is being madepursuant to the Care Everywhere program and may not contain all information available regarding this patient. Last updated 18.[facility] [employer] Allergies No known active allergies Medications * Be aware that medications may not be up to date on this document. Alwaysverify current medications with the patient. * amitriptyline (Elavil) 50 MG tablet(Started 02/13/2023) Take 1 (one) tablet by mouth once daily * amLODIPine (Norvasc) 2.5 MG tablet(Started 03/18/2023) Take 1 (one) tablet by mouth once daily * DULoxetine (Cymbalta) 60 MG capsule(Started 01/23/2023) Take 1 (one) capsule by mouth once daily * levothyroxine (Synthroid) 75 MCG tablet(Started 02/05/2023) Take 1 (one) tablet by mouth once daily * HYDROcodone-acetaminophen ([place]) 5-325 MG tablet(Started 01/16/2023) Take 1 (one) tablet by mouth every 12 hours as needed FOR PAIN * Progesterone 100 MG capsule(Started 03/09/2023) Take 1 (one) capsule by mouth once daily * spironolactone (Aldactone) 100 MG tablet(Started 02/26/2023) Take 1 (one) tablet by mouth once daily * triamcinolone acetonide (Kenalog) 0.1 % cream(Started 06/21/2024) Apply to affected area 2 times daily * Estradiol 0.5 MG/0.5GM(Started 05/06/2024) Apply 0.5 mg to skin once daily Active Problems Problem Noted Date Diagnosed Date [...] 76.2 kg (168 lb) 06/29/2023 10:03 AM TIRE BAGGER Height 170.2 cm (5' 7 ) 04/13/2023 10:11 AM CDT Body Mass Index 26.31 04/13/2023 10:11 AM CDT Procedures * XR SKULL TO ANKLE GUILLERMO(Performed 06/30/2024) Performed for Other idiopathic scoliosis, unspecified spinal region, Lumbar radiculopathy * XR SKULL TO ANKLE GUILLERMO(Performed 06/29/2023) Performed for Other idiopathic scoliosis, unspecified spinal region * XR SKULL TO ANKLE GUILLERMO(Performed 04/13/2023) Performed for Other idiopathic scoliosis, unspecified spinal region * DERMATOPATHOLOGY(Performed 10/09/2020) * DERMATOPATHOLOGY(Performed 01/10/2020) * DERMATOPATHOLOGY(Performed 06/28/2019) * DERMATOPATHOLOGY(Performed 04/26/2019) * DERMATOPATHOLOGY(Performed 05/25/2018) * DERMATOPATHOLOGY(Performed 08/04/2017) * DERMATOPATHOLOGY(Performed 02/25/2017) * DERMATOPATHOLOGY(Performed 08/20/2016) * DERMATOPATHOLOGY(Performed 08/05/2016) * DERMATOPATHOLOGY(Performed 04/10/2015) * XR SCOLIOSIS 1VW(Performed 11/13/2014) * XR SCOLIOSIS 1VW(Performed 2013) * XR SCOLIOSIS 1VW(Performed 10/11/2012) Results * XR Skull To Ankle Guillermo (06/30/2024 9:03 AM TIRE BAGGER) Only the most recent of3 resultswithin the time period is included. Anatomical Region Laterality Modality Digital Radiogra phy 06/30/2024 9:05 AM TIRE BAGGER Impressions 06/30/2024 9:51 AM TIRE BAGGER IMPRESSION: 1.Unchanged interpreted fusion T5 L5 with the bilateral rods broken at T12-L1 and a set screw at L5 to SPECT out, unchanged prior. 2.Similar balance within the coronal plane, slight improvement in the sagittal plane. > Dictated by Maxime Grady DO (radiology ct technologist). I, Moose Allan MD have personally reviewed and interpreted this examination/study. > Interpreting Provider: Moose Allan MD on 06/30/2024 9:51 AM Narrative 06/30/2024 9:51 AM TIRE BAGGER PROCEDURE: ??XR SKULL TO ANKLE GUILLERMO DATE/TIME [...] plane. > Dictated by Maxime Grady DO (radiology ct technologist). I, Moose Allan MD have personally reviewed and interpreted this examination/study. > Interpreting Provider: Moose Allan MD on 49:51 AM Fabio Cabrera MD DIAGNOSTIC IMAGING O RDERABLES * DERMATOPATHOLOGY (10/09/2020 12:00 AM TIRE BAGGER) Only the most recent of10 resultswithin the time period is included. Case Report Dermatopathology Report ? Case: [id number] ? Authorizing Provider: ??Darrell Hartman MD ?Collected: ? 10/09/2020 12:00 AM ? Ordering Location: ? [facility] DermPath Lab ?Received: ?10/12/2020 11:00 AM ? Pathologist: ? Hayley Robledo MD ? Specimens: ?? A) - Skin, right upper chest ? B) - Skin, left upper chest ? 1 1:38 PM [facility] DERMATOPATHOLOGY LABORATORY Final Diagnosis Specimen A. SKIN, right upper chest: LICHEN PLANUS-LIKE KERATOSIS (BENIGN LICHENOID KERATOSIS) (L82.1) Specimen B. SKIN, left upper chest: LICHEN PLANUS-LIKE KERATOSIS (BENIGN LICHENOID KERATOSIS) (L82.1) 1 1:38 PM [facility] DERMATOPATHOLOGY LABORATORY Clinical History A-B: R/O BCC, Camejo's, SCC. 1 1:38 PM [facility] DERMATOPATHOLOGY LABORATORY Gross Description Specimen A: Received is one formalin filled container labeled with the patient's name and designated right upper chest. The specimen consists of a shave biopsy (2 pieces) measuring 1v1z3kf & 5k6m7gh. Jar 0. Specimen B: Received is one formalin filled container labeled with the patient's name and designated left upper chest. The specimen consists of a shave biopsy measuring 5d5o6my. Jar 0. 1 1:38 PM [facility] DERMATOPATHOLOGY LABORATORY Microscopic Description Specimen A. SKIN, right upper chest: The epidermis is mildly acanthotic. There is a lichenoid infiltrate with vacuolar changes of basilar keratinocytes and scattered necrotic keratinocytes. Specimen B. SKIN, left upper chest: The epidermis is mildly acanthotic. There is a lichenoid infiltrate with vacuolar changes of basilar keratinocytes and scattered necrotic keratinocytes. 1 1:38 PM [facility] DERMATOPATHOLOGY LABORATORY Disclaimer An external and internal positive and negative controls are appropriate for the histochemical, immunohistochemical and immunofluorescence stain(s) in this case (if any), except where stated explicitly. The performance characteristics of the stain(s) cited in this report were developed and its performance characteristic determined by the Dermatopathology Laboratory at [facility], directed by Dr. Cosme Murray. These tests need not be, and therefore are not, approved by the [place] Food and Drug Administration. The tests are used for clinical purposes. Billing Codes Specimen Charges Stain Charges 31560 36654 1 1 1 1:38 PM TIRE BAGGER DERMATOPATHOLOGY LABORATORY Embedded Images 1 1:38 PM [facility] DERMATOPATHOLOGY LABORATORY Pathology/Cytology TISSUE SPECIMEN FROM SKIN / Unknown 10/09/2020 10/12/2020 11:00 AM TIRE BAGGER Miscellaneous samples (specimen) TISSUE SPECIMEN FROM SKIN / Unknown 10/09/2020 10/12/2020 11:00 AM TIRE BAGGER Darrell Hartman MD LAB - PATHOLOGY/CYTO LOGY ORDERABLES DERMATOPATHOLOGY LABORATORY [facility] - Department of Dermatology [address], [address] [phone] * XR SCOLIOSIS 1VW (11/13/2014 10:15 AM CDT) Only the most recent of3 resultswithin the time period is included. Anatomical Region Laterality Modality Spine Other Impressions 2014 8:48 AM CDT IMPRESSION: T5-L5 posterior spinal fusion with fracture of both parallel vertical rods and residual levoscoliosis, unchanged. Sagittal imbalance. Dictated by Mabel RENEE I, Dr. BUCKY RIVERA MD have personally reviewed and interpreted this examination/study. This report was electronically signed by BUCKY RIVERA MD ??on 2014 8:48 AM . Narrative 2014 8:48 AM CDT EXAMINATION: XR SPINE SCOLIOSIS STANDING HISTORY: scoliosis COMPARISON: 2013. FINDINGS: There is an unchanged postsurgical appearance of T5-L5 posterior spinal fusion with fracture of the right vertical phani at T12 and of the left phani at L1, with cerclage wires at multiple levels. Thoracolumbar levoscoliosis is redemonstrated. Sagittal vertical axis measures + 5.2 cm, previously measuring + 5.0 cm. Vertebral body heights are normal without evidence of compression fracture. Degenerative disc disease is redemonstrated in the lower lumbar spine. Procedure Note Bucky Rivera MD - 11/21/2017 EXAMINATION: XR SPINE SCOLIOSIS STANDING HISTORY: scoliosis COMPARISON: 2013. FINDINGS: There is an unchanged postsurgical appearance of T5-L5 posterior spinalfusion with fracture of the right vertical phani at T12 and of the left rodat L1, with cerclage wires at multiple levels. Thoracolumbar levoscoliosisis redemonstrated. Sagittal vertical axis measures + 5.2 cm, previously measuring + 5.0 cm. Vertebralbody heights are normal without evidence of compression fracture.Degenerative disc disease is redemonstrated in the lower lumbar spine. IMPRESSION IMPRESSION: T5-L5 posterior spinal fusion with fracture of both parallel vertical rodsand residual levoscoliosis, unchanged. Sagittal imbalance. Dictated by Mabel RENEE I, Dr. BUCKY RIVERA MD have personally reviewed and interpreted thisexamination/study. This report was electronically signed by BUCKY RIVERA MD on 11/14/20148:48 AM . Tod Dudley MD DIAGNOSTIC IMAGING O RDERABLES Care Teams Research Study Assistant Relationship Specialty Start Date End Date Unknown, Provider PCP - General 06/30/24
--- OUTSIDE RECORDS SUMMARY | 2024-09-20 14:57 | XMS_ITS | Encounter Summary ---
Author Organization [facility] Address [address] [facility] [place] [address] Care Team Providers Care Filling Machine Tender Name Role Phone Darian Santana MD Primary Care Provider [phone] Unknown, Provider Primary Care Provider Unavaila ble Encounter Details Date Type Department Care Team (Late st Contact Info) Description 05/26/2018 Lab Requisition [facility] [address] [place] [phone] Darrell Hartman MD [address] [place] [address] Social History Tobacco Use Types [...] st Contact Info) Description 06/29/2025 9:00 AM BUSINESS OFFICE ASSISTANT Office Visit [facility] [address] [place] [phone] Fabio Cabrera MD [address] [place] [address] OF [place] [address] documented as of this encounter Procedures Procedure Name Priority Date/Time Associated Diagnosis Comments DERMATOPATHOLOGY Routine 05/25/2018 12:0 0 AM CDT documented in this encounter Results * DERMATOPATHOLOGY (05/25/2018 12:00 AM CDT) Case Report Dermatopathology Report ? Case: [id number] ? Authorizing Provider: ??Darrell Hartman MD ?Collected: ? 05/25/2018 12:00 AM ? Pathologist: ? Bentley Murray MD ? Received: ?05/26/2018 12:04 PM ? Specimens: ?? A) - Skin, left side sternum ? B) - Skin, left lateral biceps ? C) - Skin, right cheek medial ? D) - Skin, right cheek centrally ? 1:[address] [facility] DERMATOPATHOLOGY LABORATORY Final Diagnosis Specimen A. SKIN, left side sternum: LICHEN PLANUS-LIKE KERATOSIS (BENIGN LICHENOID KERATOSIS) (L82.1) Specimen B. SKIN, left lateral biceps: BENIGN VERRUCOUS KERATOSIS (L82.1) HEALING SKIN CHANGES (L90.5) Specimen C. SKIN, right cheek medial: SOLAR ELASTOSIS AND VASCULAR ECTASIA (L57.8) (see microscopic description) Specimen D. SKIN, right cheek centrally: SOLAR ELASTOSIS AND VASCULAR ECTASIA (L57.8) (see microscopic description) 1:[address] [facility] DERMATOPATHOLOGY LABORATORY Clinical History A-B: R/O SCC. C-D: R/O BCC. 1:[address] [facility] DERMATOPATHOLOGY LABORATORY Gross Description Specimen A: Received is one formalin filled container labeled with the patient's name and designated left side sternum. The specimen consists of a shave biopsy measuring 8x1i4fj. Jar 0. Specimen B: Received is one formalin filled container labeled with the patient's name and designated left lateral biceps. The specimen consists of a shave biopsy measuring [id number]. Jar 0. Specimen C: Received is one formalin filled container labeled with the patient's name and designated right cheek medial. The specimen consists of a punch biopsy measuring 3d6d7mm. Jar 0. Specimen D: Received is one formalin filled container labeled with the patient's name and designated right cheek centrally. The specimen consists of a punch biopsy measuring 8r2u7fz. Jar 0. 1:[address] [facility] DERMATOPATHOLOGY LABORATORY Microscopic Description Specimen A. SKIN, left side sternum: The epidermis is mildly acanthotic. There is a lichenoid infiltrate with vacuolar changes of basilar keratinocytes and scattered necrotic keratinocytes. Specimen B. SKIN, left lateral biceps: Sections show hyperkeratosis, papillomatosis, hypergranulosis, and acanthosis. These histological findings can be seen in a verruca vulgaris or a seborrheic keratosis. There is epidermal hyperplasia beneath which there are vascular proliferation, fibroblasts, and an edematous stroma. Specimen C. SKIN, right cheek medial: Sections show non-specific changes, including solar elastosis and vascular ectasia. There is no evidence of epithelial dysplasia or malignancy in the sections examined. Specimen D. SKIN, right cheek centrally: Sections show non-specific changes, including solar elastosis and vascular ectasia. There is no evidence of epithelial dysplasia or malignancy in the sections examined. 1:13 PM CDT DERMATOPATHOLOGY LABORATORY Disclaimer An external and internal positive and negative controls are appropriate for the histochemical, immunohistochemical and immunofluorescence stain(s) in this case (if any), except where stated explicitly. The performance characteristics of the stain(s) cited in this report were developed and its performance characteristic determined by the Dermatopathology Laboratory at [facility]. These tests need not be, and therefore are not, approved by the [place] Food and Drug Administration. The tests are used for clinical purposes. Billing Codes Specimen Charges Stain Charges 17018 95524 82268 12070 1 1 1 1 1:13 PM CDT DERMATOPATHOLOGY LABORATORY Embedded Images 1:13 PM CDT DERMATOPATHOLOGY LABORATORY Pathology/Cytology TISSUE SPECIMEN FROM SKIN / Unknown 05/25/2018 05/26/2018 12:04 PM CDT Miscellaneous samples (specimen) TISSUE SPECIMEN FROM SKIN / Unknown 05/25/2018 05/26/2018 12:04 PM CDT Miscellaneous samples (specimen) TISSUE SPECIMEN FROM SKIN / Unknown 05/25/2018 05/26/2018 12:04 PM CDT Miscellaneous samples (specimen) TISSUE SPECIMEN FROM SKIN / Unknown 05/25/2018 05/26/2018 12:04 PM CDT Darrell Hartman MD LAB - PATHOLOGY/CYTO LOGY ORDERABLES DERMATOPATHOLOGY LABORATORY [facility] - Department of Dermatology [address] [place] [address], 5th Floor Lab [address] [phone] documented in this encounter Visit Diagnoses Not on filedocumented in this encounter Care Teams Filling Machine Tender Relationship Specialty Start Date End Date Darian Santana MD [address] [place] [address] PCP - General 10/3/18 11/6/24 Unknown, Provider PCP - General 06/30/24 documented as of this encounter
--- OUTSIDE RECORDS SUMMARY | 2024-09-20 14:57 | XMS_ITS | Encounter Summary ---
Author Organization [facility] Address [address] [facility] [place] [address] Care Team Providers Care Tape Recording Machine Operator Name Role Phone Darian Santana MD Primary Care Provider Unknown, Provider Primary Care Provider Unavaila ble Encounter Details Date Type Department Care Team (Late st Contact Info) Description 04/27/2019 Lab Requisition [facility] [address] [place] [phone] Darrell Hartman MD [address] [place] [address] Social History Tobacco Use Types [...] st Contact Info) Description 06/29/2025 9:00 AM CUSTOMER SERVICE SUPERVISOR Office Visit [facility] [address] [place] [address] Fabio Cabrera MD [address] [place] [address] [place] [address] documented as of this encounter Procedures Procedure Name Priority Date/Time Associated Diagnosis Comments DERMATOPATHOLOGY Routine 04/26/2019 12:0 0 AM CDT documented in this encounter Results * DERMATOPATHOLOGY (04/26/2019 12:00 AM CDT) Case Report Dermatopathology Report ? Case: [id number] ? Authorizing Provider: ??Darrell Hartman MD ?Collected: ? 04/26/2019 12:00 AM ? Ordering Location: ? [facility]ermPath Lab ?Received: ?04/27/2019 12:02 PM ? Pathologist: ? Bentley Murray MD ? Specimens: ?? A) - Skin, left upper chest below clavicle ? B) - Skin, left side inferior sternum ? 9 2:22 PM CDT DERMATOPATHOLOGY LABORATORY Final Diagnosis Specimen A. SKIN, left upper chest below clavicle: GRANULOMATOUS DERMATITIS CONSISTENT WITH A RUPTURED CYST OR HAIR FOLLICLE (L72.0) Specimen B. SKIN, left side inferior sternum: LICHEN PLANUS-LIKE KERATOSIS (BENIGN LICHENOID KERATOSIS) (L82.1) 9 2:22 PM CDT DERMATOPATHOLOGY LABORATORY Clinical History A-B: R/O BCC. 2:22 PM CDT DERMATOPATHOLOGY LABORATORY Gross Description Specimen A: Received is one formalin filled container labeled with the patient's name and designated left upper chest below clavicle. The specimen consists of a shave biopsy measuring [id number]. Jar 0. Specimen B: Received is one formalin filled container labeled with the patient's name and designated left side inferior sternum. The specimen consists of a shave biopsy measuring 9y6w7gb. Jar 0. 2:22 PM T DERMATOPATHOLOGY LABORATORY Microscopic Description Specimen A. SKIN, left upper chest below clavicle: Neutrophils, histiocytes, and multinucleated giant cells are present within the dermis. Specimen B. SKIN, left side inferior sternum: The epidermis is mildly acanthotic. There is a lichenoid infiltrate with vacuolar changes of basilar keratinocytes and scattered necrotic keratinocytes. 2:22 PM T DERMATOPATHOLOGY LABORATORY Disclaimer An external and internal positive and negative controls are appropriate for the histochemical, immunohistochemical and immunofluorescence stain(s) in this case (if any), except where stated explicitly. The performance characteristics of the stain(s) cited in this report were developed and its performance characteristic determined by the Dermatopathology Laboratory at [facility], directed by Dr. Cosme Murray. These tests need not be, and therefore are not, approved by the [place] Food and Drug Administration. The tests are used for clinical purposes. Billing Codes Specimen Charges Stain Charges 51493 54953 1 1 2:22 PM CDT DERMATOPATHOLOGY LABORATORY Embedded Images 2:22 PM CDT DERMATOPATHOLOGY LABORATORY Pathology/Cytology TISSUE SPECIMEN FROM SKIN / Unknown 04/26/2019 04/27/2019 12:02 PM CDT Miscellaneous samples (specimen) TISSUE SPECIMEN FROM SKIN / Unknown 04/26/2019 04/27/2019 12:02 PM CDT Darrell Hartman MD LAB - PATHOLOGY/CYTO LOGY ORDERABLES DERMATOPATHOLOGY LABORATORY [facility] - Department of Dermatology [address] [facility], 5th [place] [address], [facility] [phone] documented in this encounter Visit Diagnoses Not on filedocumented in this encounter Care Teams Tape Recording Machine Operator Relationship Specialty Start Date End Date Darian Santana MD [address] [place], [place] [id number] PCP - General 05/26/18 06/29/24 Unknown, Provider PCP - General 06/30/24 documented as of this encounter
--- OUTSIDE RECORDS SUMMARY | 2024-09-20 14:57 | XMS_ITS | Encounter Summary ---
Author Organization [facility] Address [address] [place] [address] Care Team Providers Care Law Examiner Name Role Phone Ned Santana MD Primary Care Provider [phone] Encounter Details Date Type Department Care Team (Latest Contact Info) Description 06/13/1999 Inpatient Historical [facility] Richard Hidalgo MD NO ADDRESS ON FILE Scoliosis (and kyphoscoliosis), idiopathic (Primary Dx) Social History Tobacco Use Types Packs/Day Years Used Date Smoking Tobacco: Never Assessed Comments Unknown Sex and Gender Information Value Date Recorded Sex Assigned at Female 05/06/2024 10:19 AM CDT Legal Sex Female 2:37 AM ROOF TRUSS DETAILER Gender Identity Female 05/06/2024 10:19 AM CDT Sexual Orientation Not on file documented as of this encounter Plan of Treatment Upcoming Encounters Date Type Department Care Team (Late st Contact Info) Description 10/04/2024 12:20 PM ROOF TRUSS DETAILER Office Visit [facility] RUG DYER Medical [place] [address] [facility] [address] [place] [address] Santiago Morales MD [facility] [place] [address] documented as of this encounter Visit Diagnoses Diagnosis Scoliosis (and kyphoscoliosis), idiopathic- Primary documented in this encounter Care Teams Law Examiner Relationship Specialty Start Date End Date Ned Santana MD [address] [place] [address] PCP - General 01/20/02 documented as of this encounter
--- OUTSIDE RECORDS SUMMARY | 2024-09-20 14:57 | XMS_ITS | Encounter Summary ---
Author Organization [facility] Address [address] [place] [address] Care Team Providers Care Senior Ux Developer Name Role Phone Ned Santana MD Primary Care Provider [phone] Encounter Details Date Type Department Care Team (Latest Contact Info) Description 05/01/2003 Outpatient Historical [facility] PAT[facility] IN A BED Santiago Morales MD [address] [place] [address] THRT LOI LABOR-ANTEPART (Primary Dx) Social History Tobacco Use Types Packs/Day Years Used Date Smoking Tobacco: Never Assessed Comments Unknown Sex and Gender Information Value Date Recorded Sex Assigned at Female 05/06/2024 10:19 AM CDT Legal Sex Female 2:37 AM ORACLE OBIEE DEVELOPER Gender Identity Female 05/06/2024 10:19 AM CDT Sexual Orientation Not on file documented as of this encounter Plan of Treatment Upcoming Encounters Date Type Department Care Team (Late st Contact Info) Description 10/04/2024 12:20 PM ORACLE OBIEE DEVELOPER Office Visit [facility] CLOTH COVERER Medical [place] [address] [address] [place] [address] Santiago Morales MD [address] [place], [place] [address] [address] documented as of this encounter Visit Diagnoses Diagnosis Threatened premature labor, antepartum(644.03)- Primary Threatened premature labor, antepartum documented in this encounter Care Teams Senior Ux Developer Relationship Specialty Start Date End Date Ned Santana MD [address] [place] [address] PCP - General 01/20/02 documented as of this encounter
--- OUTSIDE RECORDS SUMMARY | 2024-09-20 14:57 | XMS_ITS | Clinical Summary ---
Author Organization [facility] Administrative Offices Address [address] [place] [address] Care Team Providers Care Production Line Technician Name Role Phone Ned Santana MD Primary Care Provider Allergies No known active allergies Medications amitriptyline (ELAVIL) 50 mg tablet 04/25/2021 Active amLODIPine (NORVASC) 2.5 mg tablet 06/12/2021 Active DULoxetine (CYMBALTA) 60 mg Capsule, Delayed Release(E.C.) 07/01/2021 Activ e levothyroxine 75 mcg tablet 04/25/2021 Activ e HYDROcodone-bre taminophen (NORCO) 5-325 mg tablet Take 1 Tablet by mouth. 04/05/2020 Active spironolactone (ALDACTONE) 100 mg tablet 05/14/2021 Active progesterone micronized (PROMETRIUM) 100 mg Capsule take 1 capsule by mouth every day 90 Capsule 2 03/14/2024 Active Estradiol 0.5 mg/0.5 gram (0.1 %) Gel in Packet APPLY 1 PACKAGE (0.5 MG) TO SKIN DIRECTED DAILY. 90 Packet 08/15/2024 Active Active Problems No known active problems Encounters Date Type Department Care Team Description 08/13/2024 Refill [facility] APPAREL RENTAL CLERK Medical [place] [address] [facility] [address] [place] [address] Santiago Morales MD from Last 3 Months Social History Tobacco Use Types Packs/Day Years Used Date Smoking Tobacco: Some Days Cigarettes Smokeless Tobacco: Never Tobacco Cessation:Ready to Q uit: Not Asked; Counseling Given: Not Answered Alcohol Use Standard Drinks/Week Comments Yes 0 (1 standard drink = 0.6 oz pur e alcohol) occasionally Comments No Sex and Gender Information Value Date Recorded Sex Assigned at Female 05/06/2024 10:19 AM CDT Legal Sex Female 2:37 AM DIABETES SPECIALIST Gender Identity Female 05/06/2024 10:19 AM CDT Sexual Orientation Not on file Last Filed Vital Signs Vital Sign Reading Time Taken Comments Blood Pressure 140/85 08/20/2023 1:40 PM DIABETES SPECIALIST Pulse - - Temperature - - Respiratory Rate - - Oxygen Saturation - - Inhaled Oxygen Concentration - - Weight 75.1 kg (165 lb 9.6 oz) 08/20/2023 1:40 P M DIABETES SPECIALIST Height 170.2 cm (5' 7 ) 08/20/2023 1:40 PM DIABETES SPECIALIST Body Mass Index 25.94 08/20/2023 1:40 PM DIABETES SPECIALIST Plan of Treatment Upcoming Encounters Date Type Department Care Team (Late st Contact Info) Description 10/04/2024 12:20 PM DIABETES SPECIALIST Office Visit [facility] APPAREL RENTAL CLERK Medical [facility] [address] [address] [place] [address] Santiago Morales MD [facility] [place] [address] [address] [place] [address] Health Maintenance Due Date Last Done Comments DTAP/TDAP/TD VACCINES (1 - Tdap) 11/15/1991 HEPATITIS B VACCINES (1 of 3 - 19+ 3-dose series) 11/15/1991 COLORECTAL SCREENING 2017 Colorectal Cancer Screening 2017 FIT-DNA Q 3 years 2017 FIT/FOBT Q 1 year 2017 Flex Sig/CT Colonography Q 5 years 2017 ZOSTER VACCINE (1 of 2) 2022 INFLUENZA VACCINE (#1) 2024 06/29/2023, 2021 Preventative Visit- Commercial 08/24/2024 1 10/21/2022, 07/24/2022, 07/08/2021 BREAST CANCER SCREENING 08/28/2024 08/28/19 24, 08/26/2022, 08/22/2021, Additional history exists CERVICAL CANCER SCREENING 08/20/20262022, 07/24/2022, 07/08/2021 Procedures Procedure Name Priority Date/Time Associated Diagnosis Comments MAMMO SCREEN BILAT W OR WO CAD Routine 08/28/2023 8:57 AM DIABETES SPECIALIST CERV/VAG CYTO AGE BASED SCREEN PAP Routine 08/20/2023 4:16 PM DIABETES SPECIALIST Screening for malignant neoplasm of cervix from Last 3 Months or Most Recently Relevant to Health Maintenance Results * MAMMO SCREEN BILAT W OR WO CAD (08/28/2023 8:57 AM DIABETES SPECIALIST) Anatomical Region Laterality Modality Breast Bilateral Other us Santiago Morales MD MAMMO ORDERABLES Edited Resu lt - Final * CERV/VAG CYTO AGE BASED SCREEN PAP (08/20/2023 4:16 PM DIABETES SPECIALIST) COMMENT (PAP): [facility] Comment: This order for age-based cervical cancer and STI screening follows ACOG guidelines(PB 168, 140, WVY822). See individual assays for performing site location. CLINICAL INFORMATION [facility] Comment:None given LAST MENSTRUAL PERIOD [facility] Comment:NONE GIVEN PREV PAP: [facility] Comment:NONE GIVEN PREV BX: [facility] Comment:NONE GIVEN SOURCE [facility] Comment:Endocervix ADEQUACY: [facility] Comment: Satisfactory for evaluation. Endocervical/transformation zone component present. Age and/or menstrual status not provided PAP INTERP [facility] Comment: Cytology Results: Negative for intraepithelial lesion or malignancy. COMMENT (PAP TEST) [facility] [place] Comment: This Pap test has been evaluated with computer assisted technology. COST REPORT CLERK: [facility] Comment: MMW, CT(ASCP) CT screening location: [place] [address] [place] [address] [facility] Comment: EXPLANATORY NOTE: The Pap is a screening test for cervical cancer. It is not a diagnostic test and is subject to false negative and false positive results. It is most reliable when a satisfactory sample, regularly obtained, is submitted with relevant clinical findings and history, and when the Pap result is evaluated along with historic and current clinical information. HPV E6/E7 Not Detected Not Detected [facility] Comment: Methodology: Casting Director-Mediated Amplification This assay detects E6/E7 viral messenger RNA (mRNA) from 14 high-risk HPV types (16,18,31,33,35,39,45,51,52,56,58,59,66,68). Cervical sources are required for HPV testing. If a vaginal source from a patient who has had a total hysterectomy with removal of cervix was submitted, please contact the testing laboratory for alternative testing options. For additional information, please refer to http://education.Minefold/faq/AJG287s9 (This link if provided for information/ educational purposes only.) Test Performed at: [facility] [address] [place], [place] ??[address] Emiliano Tang MD Genital SWAB OF ENDOCERVIX / Unknown 08/20/2023 4:16 PM DIABETES SPECIALIST 08/20/2023 9:50 PM DIABETES SPECIALIST Santiago Morales MD PATHOLOGY/CYTOLOGY ORDERABLE S Final Result [facility] [phone] [facility] [address] [place] [address] from Last 3 Months or Most Recently Relevant to Health Maintenance Insurance [facility] BLUE ACCESS/TRUE BLUE PPO Care Teams Production Line Technician Relationship Specialty Start Date End Date Ned Santana MD [address] [place] [address] PCP - General 01/20/02
--- OUTSIDE RECORDS SUMMARY | 2024-09-20 14:57 | XMS_ITS | Encounter Summary ---
Author Organization [facility] Address [address] [place] [address] Care Team Providers Care Standards Analyst Name Role Phone Ned Santana MD Primary Care Provider [phone] Encounter Details Date Type Department Care Team (Latest Contact Info) Description 07/04/1999 Outpatient Historical [facility] Richadr Hidalgo MD NO ADDRESS ON FILE Scoliosis (and kyphoscoliosis), idiopathic (Primary Dx) Social History Tobacco Use Types Packs/Day Years Used Date Smoking Tobacco: Never Assessed Comments Unknown Sex and Gender Information Value Date Recorded Sex Assigned at Female 05/06/2024 10:19 AM CDT Legal Sex Female 2:37 AM RABIES INSPECTOR Gender Identity Female 05/06/2024 10:19 AM CDT Sexual Orientation Not on file documented as of this encounter Plan of Treatment Upcoming Encounters Date Type Department Care Team (Late st Contact Info) Description 10/04/2024 12:20 PM RABIES INSPECTOR Office Visit [facility] SAILING INSTRUCTOR Medical [place] [address] [facility] [address] [place] [address] Santiago Morales MD [facility] [address] [place] [address] documented as of this encounter Visit Diagnoses Diagnosis Scoliosis (and kyphoscoliosis), idiopathic- Primary documented in this encounter Care Teams Standards Analyst Relationship Specialty Start Date End Date Ned Santana MD [address] [place] [address] PCP - General 01/20/02 documented as of this encounter
--- OUTSIDE RECORDS SUMMARY | 2024-09-20 14:57 | XMS_ITS | Encounter Summary ---
Author Organization [facility] Address [address] [facility] [place] [address] Care Team Providers Care Lockstitch Lining Maker Name Role Phone Darian Santana MD Primary Care Provider [phone] Unknown, Provider Primary Care Provider Unavaila ble Encounter Details Date Type Department Care Team (Late st Contact Info) Description 10/12/2020 Lab Requisition [facility] [address] [place] [id number] Darrell [place] [address] Social History Tobacco Use Types [...] st Contact Info) Description 06/29/2025 9:00 AM SAND WHEELER Office Visit [facility] [address] [place] [phone] Fabio Cabrera MD [address] [place] [address] [place] [address] documented as of this encounter Procedures Procedure Name Priority Date/Time Associated Diagnosis Comments DERMATOPATHOLOGY Routine 10/09/2020 12:0 0 AM SAND WHEELER documented in this encounter Results * DERMATOPATHOLOGY (10/09/2020 12:00 AM SAND WHEELER) Case Report Dermatopathology Report ? Case: [id number] ? Authorizing Provider: ??Darrell Hartman MD ?Collected: ? 10/09/2020 12:00 AM ? Ordering Location: ? [facility] ?Received: ?10/12/2020 11:00 AM ? Pathologist: ? Hayley Robledo MD ? Specimens: ?? A) - Skin, right upper chest ? B) - Skin, left upper chest ? 1 1:38 PM [facility] DERMATOPATHOLOGY LABORATORY Final Diagnosis Specimen A. SKIN, right upper chest: LICHEN PLANUS-LIKE KERATOSIS (BENIGN LICHENOID KERATOSIS) (L82.1) Specimen B. SKIN, left upper chest: LICHEN PLANUS-LIKE KERATOSIS (BENIGN LICHENOID KERATOSIS) (L82.1) 02/22/202 1 1:38 PM [facility] DERMATOPATHOLOGY LABORATORY Clinical History A-B: R/O BCC, Camejo's, SCC. 1 1:38 PM [facility] DERMATOPATHOLOGY LABORATORY Gross Description Specimen A: Received is one formalin filled container labeled with the patient's name and designated right upper chest. The specimen consists of a shave biopsy (2 pieces) measuring [id number] & [id number]. Jar 0. Specimen B: Received is one formalin filled container labeled with the patient's name and designated left upper chest. The specimen consists of a shave biopsy measuring [id number]. Jar 0. 1 1:38 PM [facility] DERMATOPATHOLOGY LABORATORY Microscopic Description Specimen A. SKIN, right upper chest: The epidermis is mildly acanthotic. There is a lichenoid infiltrate with vacuolar changes of basilar keratinocytes and scattered necrotic keratinocytes. Specimen B. SKIN, left upper chest: The epidermis is mildly acanthotic. There is a lichenoid infiltrate with vacuolar changes of basilar keratinocytes and scattered necrotic keratinocytes. 1:38 PM [facility] DERMATOPATHOLOGY LABORATORY Disclaimer An external and internal positive and negative controls are appropriate for the histochemical, immunohistochemical and immunofluorescence stain(s) in this case (if any), except where stated explicitly. The performance characteristics of the stain(s) cited in this report were developed and its performance characteristic determined by the Dermatopathology Laboratory at [facility], directed by Dr. Cosme Murray. These tests need not be, and therefore are not, approved by the [place] Food and Drug Administration. The tests are used for clinical purposes. Billing Codes Specimen Charges Stain Charges 67222 32233 1 1 1 1:38 PM [facility] DERMATOPATHOLOGY LABORATORY Embedded Images 1 1:38 PM [facility] DERMATOPATHOLOGY LABORATORY Pathology/Cytology TISSUE SPECIMEN FROM SKIN / Unknown 10/09/2020 10/12/2020 11:00 AM SAND WHEELER Miscellaneous samples (specimen) TISSUE SPECIMEN FROM SKIN / Unknown 10/09/2020 10/12/2020 11:00 AM SAND WHEELER Darrell Hartman MD LAB - PATHOLOGY/CYTO LOGY ORDERABLES DERMATOPATHOLOGY LABORATORY [facility] Department of Dermatology [facility] Medicine [address] [place] [address], [address] [phone] documented in this encounter Visit Diagnoses Not on filedocumented in this encounter Care Teams Lockstitch Lining Maker Relationship Specialty Start Date End Date Darian Santana MD [address] [place] [address] PCP - General 05/26/18 06/29/24 Unknown, Provider PCP - General 06/30/24 documented as of this encounter
--- OUTSIDE RECORDS SUMMARY | 2024-09-20 14:57 | XMS_ITS | Encounter Summary ---
Author Organization [facility] Address [address] [place] [address] Care Team Providers Care Distribution Warehouse Manager Name Role Phone Ned Santana MD Primary Care Provider [phone] Encounter Details Date Type Department Care Team (Latest Contact Info) Description 08/15/1999 Outpatient Historical [facility] Richard Hidalgo MD NO ADDRESS ON FILE Scoliosis (and kyphoscoliosis), idiopathic (Primary Dx) Social History Tobacco Use Types Packs/Day Years Used Date Smoking Tobacco: Never Assessed Comments Unknown Sex and Gender Information Value Date Recorded Sex Assigned at Female 05/06/2024 10:19 AM CDT Legal Sex Female 2:37 AM CONSULTING DATABASE ADMINISTRATOR Gender Identity Female 05/06/2024 10:19 AM CDT Sexual Orientation Not on file documented as of this encounter Plan of Treatment Upcoming Encounters Date Type Department Care Team (Late st Contact Info) Description 10/04/2024 12:20 PM CONSULTING DATABASE ADMINISTRATOR Office Visit [facility] INTERLOCKER MAINTAINER Medical [place] [address] [facility] [address] [place] [address] Santiago Morales MD [facility] S. [facility] Suite [facility] [place] [address] documented as of this encounter Visit Diagnoses Diagnosis Scoliosis (and kyphoscoliosis), idiopathic- Primary documented in this encounter Care Teams Distribution Warehouse Manager Relationship Specialty Start Date End Date Ned Santana MD [address] [place] [address] PCP - General 01/20/02 documented as of this encounter
--- OUTSIDE RECORDS SUMMARY | 2024-09-20 14:57 | XMS_ITS | Encounter Summary ---
Author Organization [facility] Address [address] [place] [address] Care Team Providers Care Certified Hyperbaric Technologist Name Role Phone Ned Santana MD Primary Care Provider Encounter Details Date Type Department Care Team (Late Contact Info) Description 05/07/1999 Outpatient Historical [facility] Richard Hidalgo MD NO ADDRESS ON FILE Scoliosis (and kyphoscoliosis), idiopathic (Primary Dx) Social History Tobacco Use Types Packs/Day Years Used Date Smoking Tobacco: Never Assessed Comments Unknown Sex and Gender Information Value Date Recorded Sex Assigned at Female 05/06/2024 10:19 AM CDT Legal Sex Female 2:37 AM MANAGER WATER Gender Identity Female 05/06/2024 10:19 AM CDT Sexual Orientation Not on file documented as of this encounter Plan of Treatment Upcoming Encounters Date Type Department Care Team (Late Contact Info) Description 10/04/2024 12:20 PM MANAGER WATER Office Visit [facility] COOK DESSERT Medical [place] [address] [address] [place] [address] Santiago Morales MD [facility] [address] [place] [address] documented as of this encounter Visit Diagnoses Diagnosis Scoliosis (and kyphoscoliosis), idiopathic- Primary documented in this encounter Care Teams Certified Hyperbaric Technologist Relationship Specialty Start Date End Date Ned Santana MD [address] [place] [address] PCP - General 01/20/02 documented as of this encounter
--- OUTSIDE RECORDS SUMMARY | 2024-09-20 14:58 | XMS_ITS | Encounter Summary ---
Author Organization [facility] Address [address] [place] [address] Care Team Providers Care Sustainability Executive Director Name Role Phone Ned Santana MD Primary Care Provider [phone] Encounter Details Date Type Department Care Team (Latest Contact Info) Description 11/11/1999 Outpatient Historical [facility] Richard Arrieta MD [address] [facility] [address] [place] [address] Scoliosis (and kyphoscoliosis), idiopathic (Primary Dx) Social History Tobacco Use Types Packs/Day Years Used Date Smoking Tobacco: Never Assessed Comments Unknown Sex and Gender Information Value Date Recorded Sex Assigned at Female 05/06/2024 10:19 AM CDT Legal Sex Female 2:37 AM STUD BEEF CATTLE FARMER Gender Identity Female 05/06/2024 10:19 AM CDT Sexual Orientation Not on file documented as of this encounter Plan of Treatment Upcoming Encounters Date Type Department Care Team (Late st Contact Info) Description 10/04/2024 12:20 PM STUD BEEF CATTLE FARMER Office Visit [facility] SILK SCREEN ETCHER Medical [place] [address] [facility] [address] [place] [address] Santiago Morales MD [address] [facility] [address] [place] [address] documented as of this encounter Visit Diagnoses Diagnosis Scoliosis (and kyphoscoliosis), idiopathic- Primary documented in this encounter Care Teams Sustainability Executive Director Relationship Specialty Start Date End Date Ned Santana MD [address] [place] [address] PCP - General 01/20/02 documented as of this encounter
--- OUTSIDE RECORDS SUMMARY | 2024-09-20 14:58 | XMS_ITS | Encounter Summary ---
Author Organization [facility] Address [address] [place] [address] Care Team Providers Care Sap Functional Analyst Name Role Phone Ned Santana MD Primary Care Provider [phone] Encounter Details Date Type Department Care Team (Latest Contact Info) Description 04/09/2004 Outpatient Historical [facility] Richard Hidalgo MD NO ADDRESS ON FILE IDIOPATHIC SCOLIOSIS (Primary Dx) Social History Tobacco Use Types Packs/Day Years Used Date Smoking Tobacco: Never Assessed Comments Unknown Sex and Gender Information Value Date Recorded Sex Assigned at Female 05/06/2024 10:19 AM CDT Legal Sex Female 2:37 AM LINEN SUPPLY LOAD BUILDER Gender Identity Female 05/06/2024 10:19 AM CDT Sexual Orientation Not on file documented as of this encounter Plan of Treatment Upcoming Encounters Date Type Department Care Team (Late st Contact Info) Description 10/04/2024 12:20 PM LINEN SUPPLY LOAD BUILDER Office Visit [facility] DIRECTOR OF NEUROLOGY Medical [place] [address] [facility] [address] [address] [place] [address] Santiago Morales MD [facility] [address] [place] [address] documented as of this encounter Visit Diagnoses Diagnosis Scoliosis (and kyphoscoliosis), idiopathic- Primary documented in this encounter Care Teams Sap Functional Analyst Relationship Specialty Start Date End Date Ned Santana MD [address] [place] [address] PCP - General 01/20/02 documented as of this encounter
--- OUTSIDE RECORDS SUMMARY | 2024-09-20 14:58 | XMS_ITS | Encounter Summary ---
Author Organization [facility] Address [address] [place] [address] Care Team Providers Care Field Staff Name Role Phone Ned Santana MD Primary Care Provider [phone] Encounter Details Date Type Department Care Team (Latest Contact Info) Description 07/13/2007 Outpatient Historical [facility] Richard Hidalgo MD NO ADDRESS ON FILE Scoliosis (and Kyphoscoliosis), Idiopathic (Primary Dx) Social History Tobacco Use Types Packs/Day Years Used Date Smoking Tobacco: Never Assessed Comments Unknown Sex and Gender Information Value Date Recorded Sex Assigned at Female 05/06/2024 10:19 AM CDT Legal Sex Female 2:37 AM LEAD ESTHETICIAN Gender Identity Female 05/06/2024 10:19 AM CDT Sexual Orientation Not on file documented as of this encounter Plan of Treatment Upcoming Encounters Date Type Department Care Team (Late st Contact Info) Description 10/04/2024 12:20 PM LEAD ESTHETICIAN Office Visit [facility] PROMOTIONS TEAM LEADER Medical [place] [address] [facility] [address] [place] [address] Santiago Morales MD [facility] S[address] [facility] Suite [facility] [place] [address] documented as of this encounter Visit Diagnoses Diagnosis Scoliosis (and kyphoscoliosis), idiopathic- Primary documented in this encounter Care Teams Field Staff Relationship Specialty Start Date End Date Ned Santana MD [address] [place] [address] PCP - General 01/20/02 documented as of this encounter
--- OUTSIDE RECORDS SUMMARY | 2024-09-20 14:58 | XMS_ITS | Encounter Summary ---
Author Organization [facility] Address [address] [place] [address] Care Team Providers Care Artist Scientific Name Role Phone Ned Santana MD Primary Care Provider [phone]- [phone] Encounter Details Date Type Department Care Team (Latest Contact Info) Description 07/14/2008 Outpatient Historical [facility] Santiago Mcdonald MD [address] [address] Other Screening Mammogram Social History Tobacco Use Types Packs/Day Years Used Date Smoking Tobacco: Never Assessed Comments Unknown Sex and Gender Information Value Date Recorded Sex Assigned at Female 05/06/2024 10:19 AM CDT Legal Sex Female 2:37 AM MARGARINE CHURN OPERATOR Gender Identity Female 05/06/2024 10:19 AM CDT Sexual Orientation Not on file documented as of this encounter Plan of Treatment Upcoming Encounters Date Type Department Care Team (Late st Contact Info) Description 10/04/2024 12:20 PM MARGARINE CHURN OPERATOR Office Visit [facility] ROUTE CARRIER Medical [place] [address] [facility] [address] [place] [address] Santiago Morales MD [address] [place] [address] documented as of this encounter Procedures Procedure Name Priority Date/Time Associated Diagnosis Comments MAMMO SCREEN BILAT W OR WO CAD Routine 07/14/2008 1:16 PM MARGARINE CHURN OPERATOR documented in this encounter Results * MAMMO DIGITAL SCREEN BILAT (07/14/2008 1:16 PM MARGARINE CHURN OPERATOR) Anatomical Region Laterality Modality Breast Bilateral Other 07/14/2008 1:16 PM MARGARINE CHURN OPERATOR Narrative 07/16/2008 7:15 AM MARGARINE CHURN OPERATOR ? [facility] ? [address] ?[place] ??[address] ?Admit Date: 07/14/2008 ? TOMMY MATA ?Sex: F ?Admit Prov: SANTIAGO MORALES ? Date: 1970 ?Primary Care Prov: NED SANTANA ?CMRN: [id number] ?Room: MDB-A ?SSN: [id number] ? IMAGING SERVICES ?Ordering Prov: SANTIAGO MORALES ? Accession Number: [id number] ?Interpretation ? EXAM: BILATERAL SCREENING FULL FIELD DIGITAL MAMMOGRAM WITH CAD. 07/14/2008 ? History: Bilateral breast augmentation. Routine screening ? Technique: Full and implant displaced mediolateral oblique and craniocaudal ? views were obtained using full field digital mammography. Computer aided ? diagnosis was performed. ? Breast Composition: Heterogeneously dense, which lowers the sensitivity of ? mammography. ? Findings: No suspicious findings in the visualized portion of either breast ? on the mammogram are identified. Bilateral saline implants are in the ? subglandular position and appear stable in contour. ??The computer aided ? detection detected no significant abnormality. ? Assessment: BI-RADS Category 1: Negative. ? Recommendation: Routine mammographic followup in one year. ? Assessment BIRADS: ??1-Negative ? Recommendation: ??Normal interval follow-up ? Dictated by: ??KATY BOTELLO ? Electronically signed by: ??KATY BOTELLO ??07/16/2008 07:14 ? Transcribed: ??07/15/2008 19:43 ?[facility]K Procedure Note Katy Botello - 07/16/2008 [facility] [address] [place] [place], [place] [address] Admit Date: 07/14/2008 TOMMY MATA Sex: F Admit Prov: SANTIAGO MORALES Date: 1970 Primary Care Prov: NED SANTANA CMRN: [id number] [id number] IMAGING SERVICES Ordering Prov: SANTIAGO MORALES Interpretation EXAM: BILATERAL SCREENING FULL FIELD DIGITAL MAMMOGRAM WITH CAD.07/14/2008 History: Bilateral breast augmentation. Routine screening Technique: Full and implant displaced mediolateral oblique andcraniocaudal views were obtained using full field digital mammography. Computeraided diagnosis was performed. Breast Composition: Heterogeneously dense, which lowers thesensitivity of mammography. Findings: No suspicious findings in the visualized portion of eitherbreast on the mammogram are identified. Bilateral saline implants are inthe subglandular position and appear stable in contour. The computeraided detection detected no significant abnormality. Assessment: BI-RADS Category 1: Negative. Recommendation: Routine mammographic followup in one year. Assessment BIRADS: 1-Negative Recommendation: Normal interval follow-up Dictated by: KATY BOTELLO Electronically signed by: KATY BOTELLO 07/16/2008 07:14 Transcribed: 07/15/2008 19:43 AMK Santiago Morales MD MAMMO ORDERABLES Final Resul t documented in this encounter Visit Diagnoses Diagnosis Other screening mammogram documented in this encounter Care Teams Artist Scientific Relationship Specialty Start Date End Date Ned Santana MD [address] [place] [address] PCP - General 01/20/02 documented as of this encounter
--- OUTSIDE RECORDS SUMMARY | 2024-09-20 14:58 | XMS_ITS | Encounter Summary ---
Author Organization [facility] Address [address] [place] [address] Care Team Providers Care Med Spec Name Role Phone Ned Santana MD Primary Care Provider [phone]- [phone] Encounter Details Date Type Department Care Team (Latest Contact Info) Description 12/31/2006 Outpatient Historical [facility] Richard Hidalgo MD NO ADDRESS ON FILE Scoliosis (and Kyphoscoliosis), Idiopathic (Primary Dx) Social History Tobacco Use Types Packs/Day Years Used Date Smoking Tobacco: Never Assessed Comments Unknown Sex and Gender Information Value Date Recorded Sex Assigned at Female 05/06/2024 10:19 AM CDT Legal Sex Female 2:37 AM HEEL EDGE INKER MACHINE Gender Identity Female 05/06/2024 10:19 AM CDT Sexual Orientation Not on file documented as of this encounter Plan of Treatment Upcoming Encounters Date Type Department Care Team (Late st Contact Info) Description 10/04/2024 12:20 PM HEEL EDGE INKER MACHINE Office Visit [facility] NEMATOLOGIST Medical [place] [address] [facility] [address] [place] [address] Santiago Morales MD [facility] [address] [facility] [address] [facility] [place] [address] documented as of this encounter Visit Diagnoses Diagnosis Scoliosis (and kyphoscoliosis), idiopathic- Primary documented in this encounter Care Teams Med Spec Relationship Specialty Start Date End Date Ned Santana MD [address] [place] [address] PCP - General 01/20/02 documented as of this encounter
--- OUTSIDE RECORDS SUMMARY | 2024-09-20 14:58 | XMS_ITS | Encounter Summary ---
Author Organization [facility] Address [address] [place] [address] Care Team Providers Care Government Affairs Director Name Role Phone Ned Santana MD Primary Care Provider [phone]- [phone] Encounter Details Date Type Department Care Team (Latest Contact Info) Description 10/13/2008 Outpatient Historical [facility] Richard Hidalgo MD NO ADDRESS ON FILE Displacement of Lumbar Intervertebral Disc without Myelopathy Social History Tobacco Use Types Packs/Day Years Used Date Smoking Tobacco: Never Assessed Comments Unknown Sex and Gender Information Value Date Recorded Sex Assigned at Female 05/06/2024 10:19 AM CDT Legal Sex Female 2:37 AM HOUSE VISITOR Gender Identity Female 05/06/2024 10:19 AM CDT Sexual Orientation Not on file documented as of this encounter Plan of Treatment Upcoming Encounters Date Type Department Care Team (Late st Contact Info) Description 10/04/2024 12:20 PM HOUSE VISITOR Office Visit [facility] SENIOR ENERGY CONSULTANT Medical [place] [address] [facility] [address] [place] [address] Santiago Morales MD [facility] S[address] [facility] [place] [address] documented as of this encounter Visit Diagnoses Diagnosis Displacement of lumbar intervertebral disc without myelopathy documented in this encounter Care Teams Government Affairs Director Relationship Specialty Start Date End Date Ned Santana MD [address] [place] [address] PCP - General 01/20/02 documented as of this encounter
--- OUTSIDE RECORDS SUMMARY | 2024-09-20 14:58 | XMS_ITS | Encounter Summary ---
Author Organization [facility] Address [address] [place] [address] Care Team Providers Care Global Sales Executive Name Role Phone Ned Santana MD Primary Care Provider [phone] Encounter Details Date Type Department Care Team (Latest Contact Info) Description 09/04/2008 Outpatient Historical [facility] Adilene Camejo MD NO ADDRESS ON FILE Nonunion of Fracture Social History Tobacco Use Types Packs/Day Years Used Date Smoking Tobacco: Never Assessed Comments Unknown Sex and Gender Information Value Date Recorded Sex Assigned at Female 05/06/2024 10:19 AM CDT Legal Sex Female 2:37 AM WINDOW UNIT AIR CONDITIONING MECHANIC Gender Identity Female 05/06/2024 10:19 AM CDT Sexual Orientation Not on file documented as of this encounter Plan of Treatment Upcoming Encounters Date Type Department Care Team (Late st Contact Info) Description 10/04/2024 12:20 PM WINDOW UNIT AIR CONDITIONING MECHANIC Office Visit [facility] BOOK COVERER Medical [place] [address] [address] [place] [address] Santiago Morales MD [address] [address] [facility] [place] [address] documented as of this encounter Procedures Procedure Name Priority Date/Time Associated Diagnosis Comments XR SPINE SCOLIOSIS SUP & ERECT Routine 09/04/2008 10:30 AM WINDOW UNIT AIR CONDITIONING MECHANIC documented in this encounter Results * XR SPINE SCOLIOSIS 2 VW (09/04/2008 10:30 AM WINDOW UNIT AIR CONDITIONING MECHANIC) Anatomical Region Laterality Modality Spine Other 09/04/2008 10:3 0 AM WINDOW UNIT AIR CONDITIONING MECHANIC Narrative 09/12/2008 8:26 AM WINDOW UNIT AIR CONDITIONING MECHANIC ? [facility] ? [address] ?[place], [place] ??[address] ?Admit Date: 09/04/2008 ?TOMMY MATA ?Sex: F ?Admit Prov: ADILENE CAMEJO ? Date: 1970 ?Primary Care Prov: NED SANTANA ?CMRN: [id number] ?Room: SPIN-A ? SSN: [id number] ? IMAGING SERVICES ?Ordering Prov: ADILENE CAMEJO ?Accession Number: [id number] ?Interpretation ? EXAMINATION: SCOLIOSIS SERIES, 09/04/2008 ? Clinical History: Scoliosis. ? Findings: Examination of the thoracolumbar spine demonstrates 28 degrees of ? left convex lateral curvature, as measured between T8 and L3. Internal ? spinal fixation rods are present. The rods are discontinuous at the ? thoracolumbar junction. ? Impression: 27 degree levoscoliosis of thoracolumbar spine. ? Dictated by: ??Ulices VILLEGAS ? Electronically signed by: ??Ulices VILLEGAS ? 09/12/2008 08:26 ? Transcribed: ??09/06/2008 07:17 ?AMK Procedure Note Harry Villegas MD - 09/12/[id number] [place], [place] [address] Admit Date: 09/04/2008 TOMMY MATA Sex: F Admit Prov: MARIJUANADILENE Lorenzo Tim Date: 1970 Primary Care Prov: NED SANTANA CMRN: [id number] Room: [facility]: [id number] IMAGING SERVICES Ordering Prov: ADILENE CAMEJO Interpretation EXAMINATION: SCOLIOSIS SERIES, 09/04/2008 Clinical History: Scoliosis. Findings: Examination of the thoracolumbar spine demonstrates 28degrees of left convex lateral curvature, as measured between T8 and L3.Internal spinal fixation rods are present. The rods are discontinuous at the thoracolumbar junction. Impression: 27 degree levoscoliosis of thoracolumbar spine. Dictated by: Ulices VILLEGAS Electronically signed by: Ulices VILLEGAS 09/12/2008 08:26 Transcribed: 09/06/2008 07:17 AMK us Adilene Camejo MD DIAGNOSTIC IMAGING ORDERABLES Final Result documented in this encounter Visit Diagnoses Diagnosis Nonunion of fracture documented in this encounter Care Teams Global Sales Executive Relationship Specialty Start Date End Date Ned Santana MD [address] [place] [address] PCP - General 01/20/02 documented as of this encounter
--- OUTSIDE RECORDS SUMMARY | 2024-09-20 14:58 | XMS_ITS | Encounter Summary ---
Author Organization [facility] Address [address] [place] [address] Care Team Providers Care Format Proofreader Name Role Phone Ned Santana MD Primary Care Provider [phone]- [phone] Encounter Details Date Type Department Care Team (Latest Contact Info) Description 01/11/2008 Outpatient Historical [facility] Adilene Camejo MD NO ADDRESS ON FILE Scoliosis (and Kyphoscoliosis), Idiopathic Social History Tobacco Use Types Packs/Day Years Used Date Smoking Tobacco: Never Assessed Comments Unknown Sex and Gender Information Value Date Recorded Sex Assigned at Female 05/06/2024 10:19 AM CDT Legal Sex Female 2:37 AM COURTESY CLERK Gender Identity Female 05/06/2024 10:19 AM CDT Sexual Orientation Not on file documented as of this encounter Plan of Treatment Upcoming Encounters Date Type Department Care Team (Late st Contact Info) Description 10/04/2024 12:20 PM COURTESY CLERK Office Visit [facility] LAN ENGINEER Medical [place] [address] [facility] [address] [address] [place] [address] Santiago Morales MD [facility] S[address] [facility] [place] [address] documented as of this encounter Procedures Procedure Name Priority Date/Time Associated Diagnosis Comments XR SPINE SCOLIOSIS SUP & ERECT Routine 01/11/2008 1:22 PM CDT documented in this encounter Results * XR SPINE SCOLIOSIS 2 VW (01/11/2008 1:22 PM CDT) Anatomical Region Laterality Modality Spine Other 01/11/2008 1:22 PM CDT Narrative 01/11/2008 3:51 PM CDT ? [facility] ? [address] ?[place], [place] ??[address] ?Admit Date: 01/11/2008 ?TOMMY MATA ?Sex: F ?Admit Prov: ADILENE CAMEJO ? Date: 1970 ?Primary Care Prov: NED SANTANA ?CMRN: [id number] ?Room: SPIN-A ? SSN: [id number] ? IMAGING SERVICES ?Ordering Prov: N/A ? Accession Number: [id number] ?Interpretation ? EXAMINATION: SCOLIOSIS SERIES, 01/11/08 ? Clinical history: Possible scoliosis. ? Findings: Examination of the thoracolumbar spine demonstrates 8-degree ? right-convex lateral curvature as measured between T4 and T9. There is 25 ? degree left-convex lateral curvature as measured between T9 and L3. ? Internal spinal fixation is present. Spinal fixation bars appear fractured ? at the T12-L1 level. ? Impression: ? Scoliosis of thoracolumbar spine. ? . ? Dictated by: ??Ulices VILLEGAS ? 01/11/2008 13:27 ? Electronically signed by: ??Ulices VILLEGAS ? 01/11/2008 15:51 ? Transcribed: ??01/11/2008 14:50 ?LE Procedure Note Provider, Historical - 01/11/[address] [address] Admit Date: 01/11/2008 TOMMY MATA Sex: F Admit Prov: ADILENE CAMEJO Date: 1970 Primary Care Prov: FATIMAH NED M CMRN: [id number] Room: [facility]: [id number] IMAGING SERVICES Ordering Prov: N/A Interpretation EXAMINATION: SCOLIOSIS SERIES, 01/11/08 Clinical history: Possible scoliosis. Findings: Examination of the thoracolumbar spine demonstrates8-degree right-convex lateral curvature as measured between T4 and T9. Thereis 25 degree left-convex lateral curvature as measured between T9 and L3. Internal spinal fixation is present. Spinal fixation bars appearfractured at the T12-L1 level. Impression: Scoliosis of thoracolumbar spine. . Dictated by: Ulices VILLEGAS 01/11/2008 13:27 Electronically signed by: Ulices VILLEGAS 01/11/2008 15:51 Transcribed: 01/11/2008 14:50 LE us Adilene Camejo MD DIAGNOSTIC IMAGING ORDERABLES Final Result documented in this encounter Visit Diagnoses Diagnosis Scoliosis (and kyphoscoliosis), idiopathic documented in this encounter Care Teams Format Proofreader Relationship Specialty Start Date End Date Ned Santana MD [address] [place] [id number] PCP - General 01/20/02 documented as of this encounter
--- OUTSIDE RECORDS SUMMARY | 2024-09-20 14:58 | XMS_ITS | Referral Summary ---
Author Organization [facility] Address [address] [place] [address] Care Team Providers Care Hair Salon Manager Name Role Phone Darian Santana MD Primary Care Provider [phone] Allergies No known active allergies Medications spironolactone (ALDACTONE) 100 mg tablet TAKE 1 TAB BY MOUTH EVERY DAY WITH BREAKFAST, DO NOT TAKE IF YOU ARE OR MAY BECOME 02/22/2020 Active levothyroxine (SYNTHROID) 75 mcg tablet 04/01/[address] (CYMBALTA) 60 mg capsule 03/29/2020 Active amLODIPine (NORVASC) 2.5 mg tablet 03/31/2020 Active amitriptyline (ELAVIL) 50 mg tablet Take 50 mg by mouth daily 03/04/2020 Active HYDROcodone-bre taminophen (NORCO) 5-325 mg per tabletIndicatio ns:Pain Take 1 tablet by mouth every 6 (six) hours as needed for pain 15 tablet 04/05/2020 Active Active Problems Problem Noted Date Diagnosed Date Nail abnormalities 08/25/2017 Social History Tobacco Use Types Packs/Day Years Used Date Smoking Tobacco: Former Personal Safety Answer Date Recorded Getting School Help Needed Not on file 11/06 Comments Unknown Sex and Gender Information Value Date Recorded Sex Assigned at Not on file Legal Sex Female 6:04 AM COCOA BEAN 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 HELPER Gender Identity Not on file Sexual Orientation Not on file Last Filed Vital Signs Vital Sign Reading Time Taken Comments Blood Pressure 155/92 04/05/2020 2:20 PM CDT Pulse 89 04/05/2020 2:20 PM CDT Temperature 36.9 ??C (98.4 ??F) 04/05/2020 2:20 PM CD T Respiratory Rate - - Oxygen Saturation 97% 04/05/2020 2:20 PM CDT Inhaled Oxygen Concentration - - Weight 90 kg (198 lb 8 oz) 05/15/2016 11:50 AM C DT Height 172.1 cm (5' 7.75 ) 05/15/2016 11:50 AM C DT Body Mass Index 30.41 05/15/2016 11:50 AM CDT Plan of Treatment Not on file Insurance [employer] [place] Care Teams Hair Salon Manager Relationship Specialty Start Date End Date Darian Santana MD [address] [place] [address] PCP - General 07/08/17
--- OUTSIDE RECORDS SUMMARY | 2024-09-20 14:58 | XMS_ITS | Clinical Summary ---
Author Organization [facility] Address [address] [place] [address] Care Team Providers Care Clinic Clerk Name Role Phone Darian Santana MD Primary Care Provider [phone] Allergies No known active allergies Medications spironolactone [...] on file Legal Sex Female 6:04 AM GYM SUPERVISOR Gender Identity Not on file Sexual Orientation Not on file Obstetrics History Last Filed Vital Signs Vital Sign Reading [...] Plan of Treatment Not on file Insurance [employer] [place] Care Teams Clinic Clerk Relationship Specialty Start Date End Date Darian Santana MD [address] [place] [address] PCP - General 07/08/17
--- OUTSIDE RECORDS SUMMARY | 2024-09-20 14:58 | XMS_ITS | Encounter Summary ---
Author Organization [facility] Address [address] [place] [address] Care Team Providers Care Brick Stacker Name Role Phone Ned Santana MD Primary Care Provider [phone] Encounter Details Date Type Department Care Team (Latest Contact Info) Description 06/13/2003 Inpatient Historical HIS PATIENT IN A BED Santiago Morales MD [address] [place] [address] OB INJ PELV ORG NEC-DEL (Primary Dx) Social History Tobacco Use Types Packs/Day Years Used Date Smoking Tobacco: Never Assessed Comments Unknown Sex and Gender Information Value Date Recorded Sex Assigned at Female 05/06/2024 10:19 AM CDT Legal Sex Female 2:37 AM DRAMATIC TEACHER Gender Identity Female 05/06/2024 10:19 AM CDT Sexual Orientation Not on file documented as of this encounter Plan of Treatment Upcoming Encounters Date Type Department Care Team (Late st Contact Info) Description 10/04/2024 12:20 PM DRAMATIC TEACHER Office Visit [facility] MATHEMATICS PROFESSOR Medical [place] [address] [facility] [address] [place] [address] Santiago Morales MD [facility] [address] [place] [address] documented as of this encounter Visit Diagnoses Diagnosis Other injury to pelvic organs, with delivery- Primary documented in this encounter Care Teams Brick Stacker Relationship Specialty Start Date End Date eNd Santana MD [address] [place] [address] PCP - General 01/20/02 documented as of this encounter
--- OUTSIDE RECORDS SUMMARY | 2024-09-20 14:58 | XMS_ITS | Encounter Summary ---
Author Organization [facility] Address [address] [place] [address] Care Team Providers Care Hide Mill Worker Name Role Phone Ned Santana MD Primary Care Provider [phone] Encounter Details Date Type Department Care Team (Latest Contact Info) Description 01/20/2002 Inpatient Historical HIS PATIENT IN A BED Santiago Morales MD [address] [place] [address] COMPLIC LABOR NOS-DELIVERED (Primary Dx) Social History Tobacco Use Types Packs/Day Years Used Date Smoking Tobacco: Never Assessed Comments Unknown Sex and Gender Information Value Date Recorded Sex Assigned at Female 05/06/2024 10:19 AM CDT Legal Sex Female 2:37 AM COMPONENTS ENGINEER Gender Identity Female 05/06/2024 10:19 AM CDT Sexual Orientation Not on file documented as of this encounter Plan of Treatment Upcoming Encounters Date Type Department Care Team (Late st Contact Info) Description 10/04/2024 12:20 PM COMPONENTS ENGINEER Office Visit [facility] MINESWEEPING OFFICER Medical [place] [address] [facility] [address] [place] [address] Santiago Morales MD [address] [place], [place] [address] [address] documented as of this encounter Visit Diagnoses Diagnosis Unspecified indication for care or intervention related to labor and delivery, delivered- Primary documented in this encounter Care Teams Hide Mill Worker Relationship Specialty Start Date End Date Ned Santana MD [address] [place] [address] PCP - General 01/20/02 documented as of this encounter
--- OUTSIDE RECORDS SUMMARY | 2024-09-20 14:58 | XMS_ITS | Encounter Summary ---
Author Organization [facility] Address [address] [place] [address] Care Team Providers Care Rim Fire Priming Tool Setter Name Role Phone Tiffanie Santana MD Primary Care Provider [phone]- [phone] Encounter Details Date Type Department Care Team (Latest Contact Info) Description 10/23/2008 Outpatient Historical [facility] Adilene Camejo MD NO ADDRESS ON FILE Spinal Stenosis, Unspecified Region Other than Cervical; Unspecified Backache; Arthrodesis Status Social History Tobacco Use Types Packs/Day Years Used Date Smoking Tobacco: Never Assessed Comments Unknown Sex and Gender Information Value Date Recorded Sex Assigned at Female 05/06/2024 10:19 AM CDT Legal Sex Female 2:37 AM SHOP SUPERINTENDENT Gender Identity Female 05/06/2024 10:19 AM CDT Sexual Orientation Not on file documented as of this encounter Plan of Treatment Upcoming Encounters Date Type Department Care Team (Late st Contact Info) Description 10/04/2024 12:20 PM SHOP SUPERINTENDENT Office Visit [facility] RESOURCE PROTECTION SPECIALIST [address] [place] [address] [facility] [address] [place] [address] Santiago Morales MD [address] [facility] [address] [facility] [place] [address] documented as of this encounter Procedures Procedure Name Priority Date/Time Associated Diagnosis Comments CT LUMBAR SPINE W CONTRAST Routine 10/30/2008 11:00 AM CDT XR MYELOGRAM LUMBAR Routine 10/30/2008 1 0:20 AM CDT XR CONSULTATION Routine 10/30/2008 10:20 AM CDT HCG QUALITATIVE, URINE Stat 10/30/2008 8:09 AM CDT documented in this encounter Results * CT LUMBAR SPINE W CONTRAST (10/30/2008 11:00 AM CDT) Anatomical Region Laterality Modality Spine Other 10/30/2008 11:0 0 AM CDT Narrative 10/31/2008 11:06 AM CDT ? [facility] ? [address] ?[place], [place] ??[address] ?Admit Date: 10/30/2008 ? DELORES MATA ?Sex: F ?Admit Prov: ADILENE CAMEJO ? Date: 1970 ?Primary Care Prov: TIFFANIE SANTANA ?CMRN: [id number] ?Room: AIC ?[facility]: [id number] ? IMAGING SERVICES ?Ordering Prov: N/A ? Accession Number: [id number] ?Interpretation ? CT LUMBAR SPINE WITH INTRATHECAL CONTRAST ? LUMBAR MYELOGRAM ? 10/30/2008 ? Indication: Low back pain with some radiation into both lower extremities. ? Technique: Multiple CT axial images were acquired of the lumbar spine ? following administration of intrathecal contrast. Multiplanar ? reconstructions were performed. Fluoroscopic and conventional radiographs ? were also obtained. ? Findings: ? Radiographic images demonstrate good opacification of the thecal sac. ? Posterior instrumentation is present consisting of pedicle screws ? bilaterally at L3, L4, and L5. No lucency is seen around the screws to ? suggest loosening. The screw on the left at L5 skirts the superior ? endplate. Paired vertical rods are present which extends superiorly into ? the thoracic spine. The left phani is discontinuous at the T12-L1 level. ? Cross member plate is seen at L3-L4. Laminar wires are seen at L2 and ? above. Bone donor graft site is present in the left iliac bone. Mild left ? convex scoliosis is present with its apex at roughly the L2 and L1 levels. ? Mild rotational component is also noted. There appears to be solid ? posterior fusion in the thoracic and lumbar spine through L2-L3. Spinal ? cord has normal size and terminates normally. ? T12-L1 through L2-L3: Disc configurations are normal. Posterior ? instrumentation and fusion are present. The canal and foramina are not ? stenotic. ? L3-L4: Metal artifact obscures the L3 level. Facet arthropathy and fusion ? across the facet joints is present. The central canal and foramina are not ? stenotic. ? L4-L5: Metal artifact obscures the L4 body level. The disc configuration is ? normal. Marked facet arthropathy is present bilaterally. The canal and ? foramina are nonstenotic. ? L5-S1: Mild broad-based disc protrusion is present which is very slightly ? eccentric toward the left. This indents the thecal sac but does not cause ? any definite nerve compromise or stenosis. There is some mild left ? foraminal narrowing due in part to osteophytic spurring. ? Impression: ? 1. Posterior instrumentation and fusion through L5. ? 2. Mild disc protrusion at L5-S1 as described. ? 3. Mild leftward scoliosis. ? . ? Dictated by: ??LIONEL KANG ? 10/30/2008 14:52 ? Electronically signed by: ??LIONEL KANG ? 10/31/2008 11:04 ? Transcribed: ??10/30/2008 18:04 ?AMK Procedure Note Lionel Kang - 10/31/2008 [facility] [address] [place], [place] [address] Admit Date: 10/30/2008 DELORES MATA Sex: F Admit Prov: ABSHIRADILENE Tim Date: 1970 Primary Care Prov: FATIMAH TIFFANIE M CMRN: [id number] Room: [facility] SSN: [address] [place] [address] IMAGING SERVICES Ordering Prov: N/A Interpretation CT LUMBAR SPINE WITH INTRATHECAL CONTRAST LUMBAR MYELOGRAM 10/30/2008 Indication: Low back pain with some radiation into both lowerextremities. Technique: Multiple CT axial images were acquired of the lumbarspine following administration of intrathecal contrast. Multiplanar reconstructions were performed. Fluoroscopic and conventionalradiographs were also obtained. Findings: Radiographic images demonstrate good opacification of the thecalsac. Posterior instrumentation is present consisting of pedicle screws bilaterally at L3, L4, and L5. No lucency is seen around the screwsto suggest loosening. The screw on the left at L5 skirts the superior endplate. Paired vertical rods are present which extends superiorlyinto the thoracic spine. The left phani is discontinuous at the [id number]-[id number]. Cross member plate is seen at L3-L4. Laminar wires are seen at L2and above. Bone donor graft site is present in the left iliac bone. Mildleft convex scoliosis is present with its apex at roughly the L2 and O2ogtpqy. Mild rotational component is also noted. There appears to be solid posterior fusion in the thoracic and lumbar spine through L2-L3.Spinal cord has normal size and terminates normally. T12-L1 through L2-L3: Disc configurations are normal. Posterior instrumentation and fusion are present. The canal and foramina arenot stenotic. L3-L4: Metal artifact obscures the L3 level. Facet arthropathy andfusion across the facet joints is present. The central canal and foraminaare not stenotic. L4-L5: Metal artifact obscures the L4 body level. The discconfiguration is normal. Marked facet arthropathy is present bilaterally. The canaland foramina are nonstenotic. L5-S1: Mild broad-based disc protrusion is present which is veryslightly eccentric toward the left. This indents the thecal sac but does notcause any definite nerve compromise or stenosis. There is some mild left foraminal narrowing due in part to osteophytic spurring. Impression: 1. Posterior instrumentation and fusion through L5. 2. Mild disc protrusion at L5-S1 as described. 3. Mild leftward scoliosis. . Dictated by: LIONEL KANG 10/30/2008 14:52 Electronically signed by: LIONEL KANG 10/31/2008 11:04 Transcribed: 10/30/2008 18:04 AMK us Adilene Camejo MD CT ORDERABLES Final Result * XR CONSULTATION (10/30/2008 10:20 AM CDT) Anatomical Region Laterality Modality Other 10/30/2008 10:2 0 AM CDT Narrative 10/30/2008 3:10 PM CDT ? [facility] ? [address] ?[place] ??[address] ?Admit Date: 10/30/2008 ? DELORES MATA ?Sex: F ?Admit Prov: ADILENE CAMEJO ? Date: 1970 ?Primary Care Prov: TIFFANIE SANTANA ?CMRN: [id number] ?Room: GWA GW25 25 ?SSN: [id number] ? IMAGING SERVICES ?Ordering Prov: N/A ? Accession Number: [id number] ?Interpretation ? Fluoroscopic lumbar puncture and lumbar myelogram ? 10/30/2008 ? Indication: Low back pain with some radiation and lower extremities ? Procedure: The risks and benefits of the procedure were discussed with the ? patient. Written informed consent was obtained. The patient was placed ? prone on the fluoroscopy table. The lower back was prepped and draped in ? sterile fashion. The L5-S1 level was marked using fluoroscopy. Local ? analgesia was achieved by infiltration of 1% lidocaine with 4.2% sodium ? bicarbonate. A 27 gauge 8.9 cm needle was advanced in a paraspinal approach ? into the thecal sac at the L5-S1 level. Roughly 10 cc of Omnipaque-180 ? contrast was injected. The needle was withdrawn without complication. ? Fluoroscopic radiographic images were obtained. The patient was sent for CT ? evaluation. ? Impression: ? Successful lumbar puncture with lumbar myelogram. ? . ? Dictated by: ??LIONEL KANG ? 10/30/2008 15:07 ? Electronically signed by: ??LIONEL KANG ? 10/30/2008 15:08 Procedure Note Lionel Kang - 10/30/2008 [facility] [address] [place], [place] [address] Admit Date: 10/30/2008 DELORES MATA Sex: F Admit Prov: BASHIR ADILENE Dumont Date: 1970 Primary Care Prov: FATIMAH TIFFANIE M CMRN: [id number] [address] [id number] IMAGING SERVICES Ordering Prov: N/A Interpretation Fluoroscopic lumbar puncture and lumbar myelogram 10/30/2008 Indication: Low back pain with some radiation and lower extremities Procedure: The risks and benefits of the procedure were discussedwith the patient. Written informed consent was obtained. The patient wasplaced prone on the fluoroscopy table. The lower back was prepped and drapedin sterile fashion. The L5-S1 level was marked using fluoroscopy.Local analgesia was achieved by infiltration of 1% lidocaine with 4.2%sodium bicarbonate. A 27 gauge 8.9 cm needle was advanced in a paraspinalapproach into the thecal sac at the L5-S1 level. Roughly 10 cc ofOmnipaque-180 contrast was injected. The needle was withdrawn withoutcomplication. Fluoroscopic radiographic images were obtained. The patient was sentfor CT evaluation. Impression: Successful lumbar puncture with lumbar myelogram. . Dictated by: LIONEL KANG 10/30/2008 15:07 Electronically signed by: LIONEL KANG 10/30/2008 15:08 Adilene Camejo MD DIAGNOSTIC IMAGING ORDERABLES Final Result * XR MYELOGRAM LUMBAR (10/30/2008 10:20 AM CDT) Anatomical Region Laterality Modality Spine Other 10/30/2008 10:2 0 AM CDT Narrative 10/31/2008 11:06 AM CDT ? [facility] ? [address] ?[place], [place] ??[address] ?Admit Date: 10/30/2008 ? DELORES MATA ?Sex: F ?Admit Prov: MARIADILENE BLAND Tim ? Date: 1970 ?Primary Care Prov: TIFFANIE SANTANA ?CMRN: [id number] ?Room: AIC ?SSN: [id number] ? IMAGING SERVICES ?Ordering Prov: N/A ? Accession Number: [id number] ?Interpretation ? LUMBAR MYELOGRAM. ??10/30/08 ? Please see CT lumbar spine report ? . ? Dictated by: ??LIONEL KANG ? 10/30/2008 15:07 ? Electronically signed by: ??LIONEL KANG ? 10/31/2008 11:04 ? Transcribed: ??10/30/2008 16:00 Procedure Note Lionel Kang - 10/31/2008 [facility] [address] [place], [place] [address] Admit Date: 10/30/2008 DELORES MATA Sex: F Admit Prov: BASHIR ADILENE Dumont Date: 1970 Primary Care Prov: FATIMAH TIFFANIE Hagan CMRN: [id number] Room: [facility] SSN: [id number] IMAGING SERVICES Ordering Prov: N/A Interpretation LUMBAR MYELOGRAM. 10/30/[address] lumbar spine report . Dictated by: LIONEL KANG 10/30/2008 15:07 Electronically signed by: LIONEL KANG 10/31/2008 11:04 Transcribed: 10/30/2008 16:00 us Adilene Camejo MD DIAGNOSTIC IMAGING ORDERABLES Final Result * HCG QUALITATIVE, URINE (10/30/2008 8:09 AM CDT) HCG QUAL URINE Negative Negative [facility] SPECIFIC GRAVITY UA 1.005 1.001 - 1.035 [facility] HCG QUAL URINE COMMENT See Below. [facility] Comment:Urine resu lts may be falsely negative due to low specific gravity. Urine specimen (specimen) 10/30/2008 8:09 AM CDT 10/30/2008 8:26 AM CDT us Adilene Camejo MD URINE ORDERABLES Edited INTERFACE SYSTEM Refer to clinic/hospital department [facility] CLIA# [id number] [address] [place] [address] documented in this encounter Visit Diagnoses Diagnosis Spinal stenosis, unspecified region other than cervical Backache, unspecified Arthrodesis status documented in this encounter Care Teams Rim Fire Priming Tool Setter Relationship Specialty Start Date End Date Tiffanie Santana MD [address] [place] [address] PCP - General 01/20/02 documented as of this encounter
== END 2024-09-20 14:20 | disposition home or self-care (01) ==
PROVIDERS: PCP Nurse Practitioner Family; Visit Provider Urology
DX: N20.1 Calculus of ureter (principal)
CPT/HCPCS: 74018

== ENCOUNTER 2025-01-04 08:22 | Outpatient (CLI) | payer BC, SELFPAY ==
--- NOTE | ~2025-01-04 | XR_ITS ---
Supine and upright views of the abdomen Clinical history: Kidney stone COMPARISON: 09/20/2024 Findings: Bowel gas pattern is nonspecific. No evidence for obstruction or free air. Possible 3 mm le ft lower pole renal stone. Possible 3 mm right upper pole renal stone. Extensive spinal fixation hard lopez is unchanged. Impression: Questionable small bilateral renal stones. Extensive spinal fixation hardware is unchanged. Reviewed, dictated and finalized at location . Impression: Questionable small bilateral renal stones. Extensive spinal fixation hardware is unchanged.
--- OUTSIDE RECORDS SUMMARY | 2025-01-04 08:36 | XMS_ITS | Encounter Summary ---
Author Organization [facility] Address [address] [place] [address] Care Team Providers Care Marble Carver Name Role Phone Ned Santana MD Primary Care Provider [phone]- [phone] Encounter Details Date Type Department Care Team (Latest Contact Info) Description 04/22/1999 Outpatient Historical [facility] Richard Hidalgo MD NO ADDRESS ON FILE Scoliosis (and kyphoscoliosis), idiopathic (Primary Dx) Social History Tobacco Use Types Packs/Day Years Used Date Smoking Tobacco: Never Assessed Comments Unknown Sex and Gender Information Value Date Recorded Sex Assigned at Female 05/06/2024 10:19 AM CDT Legal Sex Female 2:37 AM CONE CLEANER Gender Identity Female 05/06/2024 10:19 AM CDT Sexual Orientation Not on file documented as of this encounter Plan of Treatment Not on file documented as of this encounter Visit Diagnoses Diagnosis Scoliosis (and kyphoscoliosis), idiopathic- Primary documented in this encounter Care Teams Marble Carver Relationship Specialty Start Date End Date Ned Santana MD [address] [place] [phone] PCP - General 01/20/02 documented as of this encounter
--- OUTSIDE RECORDS SUMMARY | 2025-01-04 08:36 | XMS_ITS | Encounter Summary ---
Author Organization [facility] Address [address] [place] [address] Care Team Providers Care Hat And Cap Opener Name Role Phone Ned Santana MD Primary Care Provider [phone]- [phone] Encounter Details Date Type Department Care Team (Latest Contact Info) Description 08/15/1999 Outpatient Historical [facility] Richard Hidalgo MD NO ADDRESS ON FILE Scoliosis (and kyphoscoliosis), idiopathic (Primary Dx) Social History Tobacco Use Types Packs/Day Years Used Date Smoking Tobacco: Never Assessed Comments Unknown Sex and Gender Information Value Date Recorded Sex Assigned at Female 05/06/2024 10:19 AM CDT Legal Sex Female 2:37 AM DIESEL MACHINIST Gender Identity Female 05/06/2024 10:19 AM CDT Sexual Orientation Not on file documented as of this encounter Plan of Treatment Not on file documented as of this encounter Visit Diagnoses Diagnosis Scoliosis (and kyphoscoliosis), idiopathic- Primary documented in this encounter Care Teams Hat And Cap Opener Relationship Specialty Start Date End Date Ned Santana MD [address] [place] [phone] PCP - General 01/20/02 documented as of this encounter
--- OUTSIDE RECORDS SUMMARY | 2025-01-04 08:36 | XMS_ITS | Encounter Summary ---
Author Organization [facility] Address [address] [facility] [place] [address] Care Team Providers Care Mortgage Loan Processing Clerk Name Role Phone Darian Santana MD Primary Care Provider [phone] Unknown, Provider Primary Care Provider Unavaila ble Encounter Details Date Type Department Care Team (Late st Contact Info) Description 01/11/2020 Lab Requisition [facility] [address] [place] [phone] Darrell Hart[place] [address] Social History Tobacco Use Types Packs/Day Years Used Date Smoking Tobacco: Never Smokeless Tobacco: Never Alcohol Use Standard Drinks/Week Comments Yes 0 (1 standard drink = 0.6 oz pur e alcohol) Comments Unknown Sex and Gender Information Value Date Recorded Sex Assigned at Not on file 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 Gender Identity Not on file Sexual Orientation Not on file documented as of this encounter Plan of Treatment Upcoming Encounters Date Type Department Care Team (Late Contact Info) Description 06/29/2025 9:00 AM MATTRESS WEAVER Office Visit [facility] [address] [place] [phone] Fabio Cabrera MD [address] [place] [address] [place] [address] documented as of this encounter Procedures Procedure Name Priority Date/Time Associated Diagnosis Comments DERMATOPATHOLOGY Routine 01/10/2020 12:0 0 AM CDT documented in this encounter Results * DERMATOPATHOLOGY (01/10/2020 12:00 AM CDT) Case Report Dermatopathology Report Case: [id number] Authorizing Provider: Darrell Hartman MD Collected: 01/10/2020 12:00 AM Ordering Location: [facility] Received: 01/11/2020 11:48 AM Pathologist: Bentley Murray MD Specimens: A) - Skin, right breast B) - Skin, left breast 0 3:46 PM CDT DERMATOPATHOLOGY LABORATORY Final [...] specimen consists of a shave biopsy measuring 3p0j6ti. Jar 0. Specimen B: Received is one formalin filled container labeled with the patient's name and designated left breast. The specimen consists of a shave biopsy measuring 2v0t8se. Jar 0. 0 3:46 PM CDT DERMATOPATHOLOGY [...] characteristic determined by the Dermatopathology Laboratory at [facility], directed by Dr. Cosme Murray. These tests need not be, and therefore are not, approved by the [place] Food and Drug Administration. The tests are used for clinical purposes. Billing Codes Specimen Charges Stain Charges 01585 [id number] 1 1 0 3:46 PM CDT DERMATOPATHOLOGY LABORATORY Embedded Images 0 3:46 PM CDT DERMATOPATHOLOGY LABORATORY Pathology/Cytology TISSUE SPECIMEN FROM SKIN / Unknown 01/10/2020 01/11/2020 11:48 AM CDT Miscellaneous samples (specimen) TISSUE SPECIMEN FROM SKIN / Unknown 01/10/2020 01/11/2020 11:48 AM CDT Darrell Hartman MD LAB - PATHOLOGY/CYTOLOGY ORD ERABLES Final Result DERMATOPATHOLOGY LABORATORY [facility] - Department of Dermatology Newspaper Journalist [place]/[address] [phone] documented in this encounter Visit Diagnoses Not on filedocumented in this encounter Care Teams Mortgage Loan Processing Clerk Relationship Specialty Start Date End Date Darian Santana MD [address] [place] [address] PCP - General 05/26/18 06/29/24 Unknown, Provider PCP - General 06/30/24 documented as of this encounter
--- OUTSIDE RECORDS SUMMARY | 2025-01-04 08:36 | XMS_ITS | Encounter Summary ---
Author Organization [employer] Address 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
--- OUTSIDE RECORDS SUMMARY | 2025-01-04 08:36 | XMS_ITS | Encounter Summary ---
Author Organization [facility] Address 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 (Primary Dx) Social History Tobacco Use Types Packs/Day Years Used Date Smoking Tobacco: Never Assessed Comments Unknown Sex and Gender Information Value Date Recorded Sex Assigned at Female 05/06/2024 10:19 AM CDT 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
--- OUTSIDE RECORDS SUMMARY | 2025-01-04 08:36 | XMS_ITS | Encounter Summary ---
Author Organization [employer] Address [address] [place] [address] Care Team Providers Care User Support Specialist Name Role Phone Ned Santana MD Primary Care Provider [phone]- [phone] Encounter Details Date Type Department Care Team (Latest Contact Info) Description 01/20/2002 Inpatient Historical HIS PATIENT IN A BED Santiago Morales MD 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
--- OUTSIDE RECORDS SUMMARY | 2025-01-04 08:36 | XMS_ITS | Encounter Summary ---
Author Organization [facility] Address [facility] [place] [address] Care Team Providers Care Soccer Player Name Role Phone Darian Santana MD Primary Care Provider [phone] Unknown, Provider Primary Care Provider Unavaila ble Encounter Details Date Type Department Care Team (Late st Contact Info) Description 10/12/2020 Lab Requisition [facility] Care DermPath Lab [address] [place] [phone] Darrell [place] [address] Social History Tobacco Use Types Packs/Day Years Used Date Smoking Tobacco: Never Smokeless Tobacco: Never Alcohol Use Standard Drinks/Week Comments Yes 0 (1 standard drink = 0.6 oz pur e alcohol) Comments Unknown Sex and Gender Information Value Date Recorded Sex Assigned at Not on file 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 Sex Female 5:34 PM 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 PSYCHOLOGIST Gender Identity Not on file Sexual Orientation Not on file documented as of this encounter Plan of Treatment Upcoming Encounters Date Type Department Care Team (Late Contact Info) Description 06/29/2025 9:00 AM 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 PSYCHOLOGIST Office Visit [facility] - [facility] [address] [place] [phone] Fabio Cabrera MD [address] [place] [address] [place] [address] documented as of this encounter Procedures Procedure Name Priority Date/Time Associated Diagnosis Comments DERMATOPATHOLOGY Routine 10/09/2020 12:0 0 AM 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 PSYCHOLOGIST documented in this encounter Results * DERMATOPATHOLOGY (10/09/2020 12:00 AM 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 PSYCHOLOGIST) Case Report Dermatopathology Report Case: [id number] Authorizing Provider: Darrell Hartman MD Collected: 10/09/2020 12:00 AM Ordering Location: [facility] DermPath Lab Received: 10/12/2020 11:00 AM Pathologist: Hayley Robledo MD Specimens: A) - Skin, right upper chest B) - Skin, left upper chest 1:38 PM 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 PSYCHOLOGIST DERMATOPATHOLOGY LABORATORY Final Diagnosis Specimen A. SKIN, right upper chest: LICHEN PLANUS-LIKE KERATOSIS (BENIGN LICHENOID KERATOSIS) (L82.1) Specimen B. SKIN, left upper chest: LICHEN PLANUS-LIKE KERATOSIS (BENIGN LICHENOID KERATOSIS) (L82.1) 1:38 PM [facility] DERMATOPATHOLOGY LABORATORY Clinical History A-B: R/O BCC, Camejo's, SCC. 1:38 PM 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 PSYCHOLOGIST DERMATOPATHOLOGY LABORATORY Gross Description Specimen A: Received is one formalin filled container labeled with the patient's name and designated right upper chest. The specimen consists of a shave biopsy (2 pieces) measuring [id number] & [id number]. Jar 0. Specimen B: Received is one formalin filled container labeled with the patient's name and designated left upper chest. The specimen consists of a shave biopsy measuring [id number]. Jar 0. 1:38 PM 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 PSYCHOLOGIST DERMATOPATHOLOGY LABORATORY Microscopic Description Specimen A. SKIN, right upper chest: The epidermis is mildly acanthotic. There is a lichenoid infiltrate with vacuolar changes of basilar keratinocytes and scattered necrotic keratinocytes. Specimen B. SKIN, left upper chest: The epidermis is mildly acanthotic. There is a lichenoid infiltrate with vacuolar changes of basilar keratinocytes and scattered necrotic keratinocytes. 1:38 PM 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 PSYCHOLOGIST DERMATOPATHOLOGY LABORATORY Disclaimer An external and internal positive and negative controls are appropriate for the histochemical, immunohistochemical and immunofluorescence stain(s) in this case (if any), except where stated explicitly. The performance characteristics of the stain(s) cited in this report were developed and its performance characteristic determined by the Dermatopathology Laboratory at [facility], directed by Dr. Cosme Murray. These tests need not be, and therefore are not, approved by the [place] Food and Drug Administration. The tests are used for clinical purposes. Billing Codes Specimen Charges Stain Charges 83766 16165 1 1 1 1:38 PM 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 PSYCHOLOGIST DERMATOPATHOLOGY LABORATORY Embedded Images 1 1:38 PM 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 PSYCHOLOGIST DERMATOPATHOLOGY LABORATORY Pathology/Cytology TISSUE SPECIMEN FROM SKIN / Unknown 10/09/2020 10/12/2020 11:00 AM 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 PSYCHOLOGIST Miscellaneous samples (specimen) TISSUE SPECIMEN FROM SKIN / Unknown 10/09/2020 10/12/2020 11:00 AM 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 PSYCHOLOGIST Darrell Hartman MD LAB - PATHOLOGY/CYTOLOGY ORD ERABLES Final Result DERMATOPATHOLOGY LABORATORY [facility] Department of Dermatology [facility] Specialized Medicine [address] [place] [address], [address] [phone] documented in this encounter Visit Diagnoses Not on filedocumented in this encounter Care Teams Soccer Player Relationship Specialty Start Date End Date Darian Santana MD [address] [place] [address] PCP - General 05/26/18 06/29/24 Unknown, Provider PCP - General 06/30/24 documented as of this encounter
--- OUTSIDE RECORDS SUMMARY | 2025-01-04 08:36 | XMS_ITS | Encounter Summary ---
Author Organization [facility] Address 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
--- OUTSIDE RECORDS SUMMARY | 2025-01-04 08:36 | XMS_ITS | Encounter Summary ---
Author Organization [facility] Address [address] [place] [address] Care Team Providers Care Neighborhood Aide Name Role Phone Ned Santana MD Primary Care Provider [phone] Encounter Details Date Type Department Care Team (Latest Contact Info) Description 07/14/2008 Outpatient Historical [facility] ANUPAM Morales, Santiago Tracey MD [address] [place] [phone] Other Screening Mammogram Social History Tobacco Use Types Packs/Day Years Used Date Smoking Tobacco: Never Assessed Comments Unknown Sex and Gender Information Value Date Recorded Sex Assigned at Female 05/06/2024 10:19 AM CDT 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 Gender Identity Female 05/06/2024 10:19 AM CDT Sexual Orientation Not on file documented as of this encounter Plan of Treatment Not on file documented as of this encounter Procedures Procedure Name Priority Date/Time Associated Diagnosis Comments MAMMO SCREEN BILAT W OR WO CAD Routine 07/14/2008 1:16 PM ORACLE DISTRIBUTION CONSULTANT documented in this encounter Results * MAMMO DIGITAL SCREEN BILAT (07/14/2008 1:16 PM ORACLE DISTRIBUTION CONSULTANT) Anatomical Region Laterality Modality Breast Bilateral Other 07/14/2008 1:16 PM ORACLE DISTRIBUTION CONSULTANT Narrative 07/16/2008 7:15 AM ORACLE DISTRIBUTION CONSULTANT [address] [place], [place] [address] Admit Date: 07/14/2008 TOMMY MATA Sex: F Admit Prov: SANTIAGO MORALES Date: 1970 Primary Care Prov: NED SANTANA CMRN: [id number] [id number] [facility] Ordering Prov: SANTIAGO MORALES Accession Number: [id number] Interpretation EXAM: BILATERAL SCREENING FULL FIELD DIGITAL MAMMOGRAM WITH CAD. 07/14/2008 History: Bilateral breast augmentation. Routine screening Technique: Full and implant displaced mediolateral oblique and craniocaudal views were obtained using full field digital mammography. Computer aided diagnosis was performed. Breast Composition: Heterogeneously dense, which lowers the sensitivity of mammography. Findings: No suspicious findings in the visualized portion of either breast on the mammogram are identified. Bilateral saline implants are in the subglandular position and appear stable in contour. The computer aided detection detected no significant abnormality. Assessment: BI-RADS Category 1: Negative. Recommendation: Routine mammographic followup in one year. Assessment BIRADS: 1-Negative Recommendation: Normal interval follow-up Dictated by: KATY BOTELLO Electronically signed by: KATY BOTELLO 07/16/2008 07:14 Transcribed: 07/15/2008 19:43 AMK Procedure Note Katy Botello - 07/16/2008 [place] [address] [place], [place] [address] Admit Date: 07/14/2008 TOMMY MATA Sex: F Admit Prov: SANTIAGO MORALES Date: 1970 Primary Care Prov: NED SANTANA CMRN: [id number] [facility] [id number] [facility] Ordering Prov: SANTIAGO MORALES Interpretation [...] BOTELLO 07/16/2008 07:14 Transcribed: 07/15/2008 19:43 AMK us Santiago Morales MD MAMMO ORDERABLES Final Resul t documented in this encounter Visit Diagnoses Diagnosis Other screening mammogram documented in this encounter Care Teams Neighborhood Aide Relationship Specialty Start Date End Date Ned Santana MD [address] [place] [address] PCP - General 01/20/02 documented as of this encounter
--- OUTSIDE RECORDS SUMMARY | 2025-01-04 08:36 | XMS_ITS | Encounter Summary ---
Author Organization [facility] Address 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 Findings: Examination of the thoracolumbar spine demonstrates 8-degree right-convex lateral curvature as measured between T4 and T9. There is 25 degree left-convex lateral curvature as measured between T9 and L3. Internal spinal fixation is present. Spinal fixation bars appear fractured at the T12-L1 level. Impression: Scoliosis of thoracolumbar spine. . Dictated by: Ulices VILLEGAS 01/11/2008 13:27 Electronically signed by: Ulices VILLEGAS 01/11/2008 15:51 Transcribed: 01/11/2008 14:50 LE Procedure Note Provider, Historical - 01/11/2008 [facility] [address] [place], [place] [address] Admit Date: 01/11/2008 TOMMY MATA Sex: F Admit Prov: ADILENE CAMEJO Date: 1970 Primary Care Prov: NED SANTANA CMRN: [id number] [facility] [id number] IM[facility]ING SERVICES Ordering Prov: N/A Interpretation EXAMINATION: [...] idiopathic documented in this encounter Care Teams Freelance Director Relationship Specialty Start Date End Date Ned Santana MD [address] [place] [address] PCP - General 01/20/02 documented as of this encounter
--- OUTSIDE RECORDS SUMMARY | 2025-01-04 08:36 | XMS_ITS | Referral Summary ---
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 Gender Identity Not on file Sexual Orientation Not on file Last Filed Vital Signs Vital Sign Reading Time Taken Comments Blood Pressure 155/92 04/05/2020 2:20 PM CDT Pulse 89 04/05/2020 2:20 PM CDT Temperature 36.9 C (98.4 F) 04/05/2020 2:20 PM CDT Respiratory Rate - - Oxygen Saturation 97% 04/05/2020 2:20 PM CDT Inhaled Oxygen Concentration - - Weight 90 kg (198 lb 8 oz) 05/15/2016 11:50 AM C DT Height 172.1 cm (5' 7.75 ) 05/15/2016 11:50 AM C DT Body Mass Index 30.41 05/15/2016 11:50 AM CDT Plan of Treatment Not on file Insurance [employer] [place] Care Teams Trial Justice Relationship Specialty Start Date End Date Darian Santana MD [address] [address] PCP - General 07/08/17
--- OUTSIDE RECORDS SUMMARY | 2025-01-04 08:36 | XMS_ITS | Encounter Summary ---
Author Organization [facility] Address [address] [place] [address] Care Team Providers Care Packing And Final Assembly Supervisor Name Role Phone Ned Santana MD Primary Care Provider [phone] Encounter Details Date Type Department Care Team (Latest Contact Info) Description 12/31/2006 Outpatient Historical [facility] Richard Hidalgo MD NO ADDRESS ON FILE Scoliosis (and Kyphoscoliosis), Idiopathic (Primary Dx) Social History Tobacco Use Types Packs/Day Years Used Date Smoking Tobacco: Never Assessed Comments Unknown Sex and Gender Information Value Date Recorded Sex Assigned at Female 05/06/2024 10:19 AM CDT 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
--- OUTSIDE RECORDS SUMMARY | 2025-01-04 08:36 | XMS_ITS | Encounter Summary ---
Author Organization [facility] Address [address] [facility] [place] [address] Care Team Providers Care Med Spa Manager Name Role Phone Darian Santana MD Primary Care Provider Unknown, Provider Primary Care Provider Unavaila ble Encounter Details Date Type Department Care Team (Late st Contact Info) Description 05/26/2018 Lab Requisition [facility] [address] [place] [phone] Darrell [place] [address] Social History Tobacco Use Types Packs/Day Years Used Date Smoking Tobacco: Never Smokeless Tobacco: Never Alcohol Use Standard Drinks/Week Comments Yes 0 (1 standard drink = 0.6 oz pur e alcohol) Comments Unknown Sex and Gender Information Value Date Recorded Sex Assigned at Not on file Legal Sex Female 5:34 PM PROJECT MANAGER/DESIGN MANAGER Gender Identity Not on file Sexual Orientation Not on file documented as of this encounter Plan of Treatment Upcoming Encounters Date Type Department Care Team (Late Contact Info) Description 06/29/2025 9:00 AM PROJECT MANAGER/DESIGN MANAGER Office Visit [facility] [address] [place] [phone] Fabio Cabrera MD [address] [place] [address] [place] [address] documented as of this encounter Procedures Procedure Name Priority Date/Time Associated Diagnosis Comments DERMATOPATHOLOGY Routine 05/25/2018 12:0 0 AM CDT documented in this encounter Results * DERMATOPATHOLOGY (05/25/2018 12:00 AM CDT) Case Report Dermatopathology Report Case: [id number] Authorizing Provider: Darrell Hartman MD Collected: 05/25/2018 12:00 AM Pathologist: Bentley Murray MD Received: 05/26/2018 12:04 PM Specimens: A) - Skin, left side sternum B) - Skin, left lateral biceps C) - Skin, right cheek medial D) - Skin, right cheek centrally 1:13 PM CDT DERMATOPATHOLOGY LABORATORY Final Diagnosis Specimen [...] ECTASIA (L57.8) (see microscopic description) 1:13 PM CDT DERMATOPATHOLOGY LABORATORY Clinical History A-B: R/O SCC. C-D: R/O BCC. 1:13 PM CDT DERMATOPATHOLOGY LABORATORY Gross Description Specimen A: Received is one formalin filled container labeled with the patient's name and designated left side sternum. The specimen consists of a shave biopsy measuring [id number]. Jar 0. Specimen B: Received is one formalin filled container labeled with the patient's name and designated left lateral biceps. The specimen consists of a shave biopsy measuring [id number]. Jar 0. Specimen C: Received is one formalin filled container labeled with the patient's name and designated right cheek medial. The specimen consists of a punch biopsy measuring [id number]. Jar 0. Specimen D: Received is one formalin filled container labeled with the patient's name and designated right cheek centrally. The specimen consists of a punch biopsy measuring [id number]. Jar 0. 1:13 PM T DERMATOPATHOLOGY LABORATORY Microscopic Description Specimen [...] malignancy in the sections examined. 1:[address] [facility] DERMATOPATHOLOGY LABORATORY Disclaimer An external and internal positive and negative controls are appropriate for the histochemical, immunohistochemical and immunofluorescence stain(s) in this case (if any), except where stated explicitly. The performance characteristics of the stain(s) cited in this report were developed and its performance characteristic determined by the Dermatopathology Laboratory at [facility]. These tests need not be, and therefore are not, approved by the [place] Food and Drug Administration. The tests are used for clinical purposes. Billing Codes Specimen Charges Stain Charges 62419 13400 35115 03171 1 1 1 1 1:13 PM CDT DERMATOPATHOLOGY LABORATORY Embedded Images 1:13 PM T DERMATOPATHOLOGY LABORATORY Pathology/Cytology TISSUE SPECIMEN FROM SKIN / Unknown 05/25/2018 05/26/2018 12:04 PM CDT Miscellaneous samples (specimen) TISSUE SPECIMEN FROM SKIN / Unknown 05/25/2018 05/26/2018 12:04 PM CDT Miscellaneous samples (specimen) TISSUE SPECIMEN FROM SKIN / Unknown 05/25/2018 05/26/2018 12:04 PM CDT Miscellaneous samples (specimen) TISSUE SPECIMEN FROM SKIN / Unknown 05/25/2018 05/26/2018 12:04 PM CDT us Darrell Hartman MD LAB - PATHOLOGY/CYTOLOGY ORD ERABLES Final Result DERMATOPATHOLOGY LABORATORY [facility] - Department of Dermatology [facility] [facility], 5th [place] [address], [facility] [phone] documented in this encounter Visit Diagnoses Not on filedocumented in this encounter Care Teams Med Spa Manager Relationship Specialty Start Date End Date Darian Santana MD [address] [place], [place] [phone] PCP - General 05/26/18 06/29/24 Unknown, Provider PCP - General 06/30/24 documented as of this encounter
--- OUTSIDE RECORDS SUMMARY | 2025-01-04 08:36 | XMS_ITS | Clinical Summary ---
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
--- OUTSIDE RECORDS SUMMARY | 2025-01-04 08:36 | XMS_ITS | Encounter Summary ---
Author Organization [facility] Address [facility] [place] [address] Care Team Providers Care Vp Information Technology Name Role Phone Darian Santana MD Primary Care Provider Unknown, Provider Primary Care Provider Unavaila ble Encounter Details Date Type Department Care Team (Late st Contact Info) Description 04/27/2019 Lab Requisition [facility] Care DermPath Lab [address] [place] [phone] Darrell Hart[place] [address] Social History Tobacco Use Types Packs/Day Years Used Date Smoking Tobacco: Never Smokeless Tobacco: Never Alcohol Use Standard Drinks/Week Comments Yes 0 (1 standard drink = 0.6 oz pur e alcohol) Comments Unknown Sex and Gender Information Value Date Recorded Sex Assigned at Not on file Legal Sex Female 5:34 PM BUGGYMAN Gender Identity Not on file Sexual Orientation Not on file documented as of this encounter Plan of Treatment Upcoming Encounters Date Type Department Care Team (Late Contact Info) Description 06/29/2025 9:00 AM BUGGYMAN Office Visit [facility] - [facility]opedics [address] [place] [phone] Fabio Cabrera MD [address] [place] [address] [place] [address] documented as of this encounter Procedures Procedure Name Priority Date/Time Associated Diagnosis Comments DERMATOPATHOLOGY Routine 04/26/2019 12:0 0 AM CDT documented in this encounter Results * DERMATOPATHOLOGY (04/26/2019 12:00 AM CDT) Case Report Dermatopathology Report Case: [id number] Authorizing Provider: Darrell Hartman MD Collected: 04/26/2019 12:00 AM Ordering Location: [facility] DermPath Lab Received: 04/27/2019 12:02 PM Pathologist: Bentley Murray MD Specimens: A) - Skin, left upper chest below clavicle B) - Skin, left side inferior sternum 2:22 PM CDT DERMATOPATHOLOGY LABORATORY Final Diagnosis Specimen A. SKIN, left upper chest below clavicle: GRANULOMATOUS DERMATITIS CONSISTENT WITH A RUPTURED CYST OR HAIR FOLLICLE (L72.0) Specimen B. SKIN, left side inferior sternum: LICHEN PLANUS-LIKE KERATOSIS (BENIGN LICHENOID KERATOSIS) (L82.1) 2:22 PM CDT DERMATOPATHOLOGY LABORATORY Clinical History A-B: R/O BCC. 2:22 PM CDT DERMATOPATHOLOGY LABORATORY Gross Description Specimen A: Received is one formalin filled container labeled with the patient's name and designated left upper chest below clavicle. The specimen consists of a shave biopsy measuring [id number]. Jar 0. Specimen B: Received is one formalin filled container labeled with the patient's name and designated left side inferior sternum. The specimen consists of a shave biopsy measuring [id number]. Jar 0. 2:22 PM CDT DERMATOPATHOLOGY LABORATORY Microscopic Description Specimen A. SKIN, left upper chest below clavicle: Neutrophils, histiocytes, and multinucleated giant cells are present within the dermis. Specimen B. SKIN, left side inferior sternum: The epidermis is mildly acanthotic. There is a lichenoid infiltrate with vacuolar changes of basilar keratinocytes and scattered necrotic keratinocytes. 2:22 PM CDT DERMATOPATHOLOGY LABORATORY Disclaimer An external and internal positive and negative controls are appropriate for the histochemical, immunohistochemical and immunofluorescence stain(s) in this case (if any), except where stated explicitly. The performance characteristics of the stain(s) cited in this report were developed and its performance characteristic determined by the Dermatopathology Laboratory at [facility], directed by Dr. Cosme Murray. These tests need not be, and therefore are not, approved by the [place] Food and Drug Administration. The tests are used for clinical purposes. Billing Codes Specimen Charges Stain Charges 33668 26520 1 1 9 2:22 PM CDT DERMATOPATHOLOGY LABORATORY Embedded Images 9 2:22 PM CDT DERMATOPATHOLOGY LABORATORY Pathology/Cytology TISSUE SPECIMEN FROM SKIN / Unknown 04/26/2019 04/27/2019 12:02 PM CDT Miscellaneous samples (specimen) TISSUE SPECIMEN FROM SKIN / Unknown 04/26/2019 04/27/2019 12:02 PM CDT Darrell Hartman MD LAB - PATHOLOGY/CYTOLOGY ORD ERABLES Final Result DERMATOPATHOLOGY LABORATORY [facility] - Department of Dermatology [address] [place] [address] 5th Floor Lab [address] [phone] documented in this encounter Visit Diagnoses Not on filedocumented in this encounter Care Teams Vp Information Technology Relationship Specialty Start Date End Date Darian Santana MD [address] [place], [place] [phone] PCP - General 05/26/18 06/29/24 Unknown, Provider PCP - General 06/30/24 documented as of this encounter
--- OUTSIDE RECORDS SUMMARY | 2025-01-04 08:36 | XMS_ITS | Encounter Summary ---
Author Organization [facility] Address [address] [place] [address] Care Team Providers Care Supervisor Sandblaster Name Role Phone Ned Santana MD Primary Care Provider [phone]- [phone] Encounter Details Date Type Department Care Team (Latest Contact Info) Description 09/04/2008 Outpatient Historical [facility] Adilene Camejo MD NO ADDRESS ON FILE Nonunion of Fracture Social History Tobacco Use Types Packs/Day Years Used Date Smoking Tobacco: Never Assessed Comments Unknown Sex and Gender Information Value Date Recorded Sex Assigned at Female 05/06/2024 10:19 AM CDT Legal Sex Female 2:37 AM RN QUALITY Gender Identity Female 05/06/2024 10:19 AM CDT Sexual Orientation Not on file documented as of this encounter Plan of Treatment Not on file documented as of this encounter Procedures Procedure Name Priority Date/Time Associated Diagnosis Comments XR SPINE SCOLIOSIS SUP & ERECT Routine 09/04/2008 10:30 AM RN QUALITY documented in this encounter Results * XR SPINE SCOLIOSIS 2 VW (09/04/2008 10:30 AM RN QUALITY) Anatomical Region Laterality Modality Spine Other 09/04/2008 10:3 0 AM RN QUALITY Narrative 09/12/2008 8:26 AM RN QUALITY [facility] [address] [place] [address] Admit Date: 09/04/2008 TOMMY MATA Sex: F Admit Prov: ADILENE CAMEJO Date: 1970 Primary Care Prov: NED SANTANA CMRN: [id number] Room: [facility]: [id number] IMAGING SERVICES Ordering Prov: ADILENE CAMEJO Accession Number: [id number] Interpretation EXAMINATION: SCOLIOSIS SERIES, 09/04/2008 Clinical History: Scoliosis. Findings: Examination of the thoracolumbar spine demonstrates 28 degrees of left convex lateral curvature, as measured between T8 and L3. Internal spinal fixation rods are present. The rods are discontinuous at the thoracolumbar junction. Impression: 27 degree levoscoliosis of thoracolumbar spine. Dictated by: Ulices VILLEGAS Electronically signed by: Ulices VILLEGAS 09/12/2008 08:26 Transcribed: 09/06/2008 07:17 AMK Procedure Note Harry Villegas MD - 09/12/[address] [address] Admit Date: 09/04/2008 TOMMY MATA Sex: F Admit Prov: ADILENE CAMEJO Date: 1970 Primary Care Prov: NED SANTANA CMRN: [id number] [id number] [facility] Ordering Prov: ADILENE CAMEJO Interpretation [...] VILLEGAS 09/12/2008 08:26 Transcribed: 09/06/2008 07:17 AMK Adilene Camejo MD DIAGNOSTIC IMAGING ORDERABLES Final Result documented in this encounter Visit Diagnoses Diagnosis Nonunion of fracture documented in this encounter Care Teams Supervisor Sandblaster Relationship Specialty Start Date End Date Ned Santana MD [address] [place] [address] PCP - General 01/20/02 documented as of this encounter
--- OUTSIDE RECORDS SUMMARY | 2025-01-04 08:36 | XMS_ITS | Clinical Summary ---
Author Organization [facility] Address [address] [place] [address] Care Team Providers Care Payroll Services Analyst Name Role Phone Unknown, Provider Primary Care Provider Unavaila ble Source Comments [facility],non-owned Affiliates and Associated Physician Practices is amultiple site organization consisting of ambulatory clinics and hospital sitesin [place], [place], [place] and [place]. This disclosure is being madepursuant to the Care Everywhere program and may not contain all information available regarding this patient. Last updated 18.[facility] Allergies No known active allergies Medications * Be aware that medications may not be up to date on this document. Alwaysverify current medications with the patient. amitriptyline (Elavil) 50 MG tablet Take 1 (one) tablet by mouth once daily 02/13/2023 Active amLODIPine (Norvasc) 2.5 MG tablet Take 1 (one) tablet by mouth once daily 03/18/2023 Active DULoxetine (Cymbalta) 60 MG capsule Take 1 (one) capsule by mouth once daily 01/23/2023 Active levothyroxine (Synthroid) 75 MCG tablet Take 1 (one) tablet by mouth once daily 02/05/2023 Active HYDROcodone-bre taminophen (Levelland) 5-325 MG tablet Take 1 (one) tablet [...] Recorded Patient Health Questionnaire-2 Score 0 06/28/2024 Comments Unknown Sex and Gender Information Value Date Recorded Sex Assigned at Not on file Legal Sex Female 5:34 PM SEO ENGINEER Gender Identity Not on file Sexual Orientation Not on file Last Filed Vital Signs Vital Sign Reading Time Taken Comments Blood Pressure 128/82 2013 9:48 AM CDT Pulse - - Temperature - - Respiratory Rate - - Oxygen Saturation - - Inhaled Oxygen Concentration - - Weight 76.2 kg (168 lb) 06/29/2023 10:03 AM SEO ENGINEER Height 170.2 cm (5' 7 ) 04/13/2023 10:11 AM CDT Body Mass Index 26.31 04/13/2023 10:11 AM CDT Plan of Treatment Upcoming Encounters Date Type Department Care Team (Late st Contact Info) Description 06/29/2025 9:00 AM SEO ENGINEER Office Visit [facility] - [facility]ics [address] [place] [address], [place] [phone] Fabio Cabrera MD [address] [place] [address] OF [place] [address] Health Maintenance Due Date Last Done Comments [...] 50+ (1 of 2 - PCV) 11/15/1991 ZOSTER VACCINE (1 of 2) 2022 MAMMOGRAM 08/22/2023 08/22/2021 COVID-19 VACCINE (1 - 2023-2 5 season) 2024 DEPRESSION SCREENING 08/24/2024 INFLUENZA VACCINE (Season Ended) 2025 HIB VACCINE Aged Out No longer eligi ble based on patient's age to complete this topic HPV VACCINE Aged Out No longer eligi ble based on patient's age to complete this topic MENINGOCOCCAL (Group B) VACC INE SHARED DECISION-MAKING Aged Out No longer eligibl e based on patient's age to complete this topic MENINGOCOCCAL GROUPS A/C/Y/W VACCINE Aged Out No longer eligible b ased on patient's age to complete this topic Insurance [employer] Care Teams Payroll Services Analyst Relationship Specialty Start Date End Date Unknown, Provider PCP - General 06/30/24
--- OUTSIDE RECORDS SUMMARY | 2025-01-04 08:36 | XMS_ITS | Encounter Summary ---
Author Organization [facility] Address [facility] [place] [address] Care Team Providers Care Correctional Counselor/Case Manager Name Role Phone Darian Santana MD Primary Care Provider Unknown, Provider Primary Care Provider Unavaila ble Encounter Details Date Type Department Care Team (Late st Contact Info) Description 06/29/2019 Lab Requisition [facility] [address] [place] [phone] Darrell [place] [address] Social History Tobacco Use Types Packs/Day Years Used Date Smoking Tobacco: Never Smokeless Tobacco: Never Alcohol Use Standard Drinks/Week Comments Yes 0 (1 standard drink = 0.6 oz pur e alcohol) Comments Unknown Sex and Gender Information Value Date Recorded Sex Assigned at Not on file Legal Sex Female 5:34 PM INSURANCE SOLICITOR Gender Identity Not on file Sexual Orientation Not on file documented as of this encounter Plan of Treatment Upcoming Encounters Date Type Department Care Team (Late Contact Info) Description 06/29/2025 9:00 AM INSURANCE SOLICITOR Office Visit [facility] [address] [place] [phone] Fabio Cabrera MD [address] [place] [address] [place] [address] documented as of this encounter Procedures Procedure Name Priority Date/Time Associated Diagnosis Comments DERMATOPATHOLOGY Routine 06/28/2019 12:0 0 AM INSURANCE SOLICITOR documented in this encounter Results * DERMATOPATHOLOGY (06/28/2019 12:00 AM INSURANCE SOLICITOR) Case Report Dermatopathology Report Case: [id number] Authorizing Provider: Darrell Hartman MD Collected: 06/28/2019 12:00 AM Ordering Location: [facility] DermPath Lab Received: 06/29/2019 12:44 PM Pathologist: Bentley Murray MD Specimen: Skin, left great toenail 3:45 PM INSURANCE SOLICITOR DERMATOPATHOLOGY LABORATORY Final Diagnosis Specimen A. SKIN, left great toenail: COMPACT KERATIN CONSISTENT WITH NAIL PLATE (L60.8) 3:45 PM [facility] Clinical History R/O onychomycosis. 3:45 PM [facility] Gross Description Specimen A: Received is one formalin filled container labeled with the patient's name and designated left great toenail. The specimen consists of a nail clipping measuring [id number]. 3:45 PM [facility] DER[facility] Microscopic Description Specimen A. SKIN, left great toenail: Sections show nail plate. Periodic acid-Ivy (PAS) stained sections do not highlight fungal organisms. 3:45 PM [facility] DER[facility]ATORY Disclaimer An external and internal positive and negative controls are appropriate for the histochemical, immunohistochemical and immunofluorescence stain(s) in this case (if any), except where stated explicitly. The performance characteristics of the stain(s) cited in this report were developed and its performance characteristic determined by the Dermatopathology Laboratory at [facility], directed by Dr. Cosme Murray. These tests need not be, and therefore are not, approved by the [place] Food and Drug Administration. The tests are used for clinical purposes. Billing Codes Specimen Charges Stain Charges 12605 1 55276 1 3:45 PM [facility] DER[facility] LAB[facility]ATORY Embedded Images 3:45 PM INSURANCE SOLICITOR DERMATOPATHOLOGY LABORATORY Pathology/Cytolog y TISSUE SPECIMEN FROM SKIN / Unknown 06/28/2019 06/29/2019 12:44 PM INSURANCE SOLICITOR us Darrell Hartman MD LAB - PATHOLOGY/CYTOLOGY ORD ERABLES Final Result DERMATOPATHOLOGY LABORATORY [facility] - Department of Dermatology [address] [place] [address], 5th Floor Lab [address] [phone] documented in this encounter Visit Diagnoses Not on filedocumented in this encounter Care Teams Correctional Counselor/Case Manager Relationship Specialty Start Date End Date Darian Santana MD [address] [place], [place] [phone] PCP - General 05/26/18 06/29/24 Unknown, Provider PCP - General 06/30/24 documented as of this encounter
--- OUTSIDE RECORDS SUMMARY | 2025-01-04 08:36 | XMS_ITS | Encounter Summary ---
Author Organization [employer] Address [address] [place] [address] Care Team Providers Care Field Case Manager Name Role Phone Ned Santana MD Primary Care Provider Encounter Details Date Type Department Care Team (Latest Contact Info) Description 04/09/2004 Outpatient Historical [facility] SPINE CENTER Richard Hidalgo MD NO ADDRESS ON FILE IDIOPATHIC SCOLIOSIS (Primary Dx) Social History Tobacco Use Types Packs/Day Years Used Date Smoking Tobacco: Never Assessed Comments Unknown Sex and Gender Information Value Date Recorded Sex Assigned at Female 05/06/2024 10:19 AM CDT Legal Sex Female 2:37 AM INDUSTRIAL COFFEE GRINDER Gender Identity Female 05/06/2024 10:19 AM CDT Sexual Orientation Not on file documented as of this encounter Plan of Treatment Not on file documented as of this encounter Visit Diagnoses Diagnosis Scoliosis (and kyphoscoliosis), idiopathic- Primary documented in this encounter Care Teams Field Case Manager Relationship Specialty Start Date End Date Ned Santana MD [address] [place] [address] PCP - General 01/20/02 documented as of this encounter
--- OUTSIDE RECORDS SUMMARY | 2025-01-04 08:36 | XMS_ITS | Encounter Summary ---
Author Organization [facility] Address [address] [place] [address] Care Team Providers Care Prop Making Supervisor Name Role Phone Ned Santana MD Primary Care Provider [phone]- [phone] Encounter Details Date Type Department Care Team (Late st Contact Info) Description 05/07/1999 Outpatient Historical [facility] DE[facility] Richard Hidalgo MD NO ADDRESS ON FILE Scoliosis (and kyphoscoliosis), idiopathic (Primary Dx) Social History Tobacco Use Types Packs/Day Years Used Date Smoking Tobacco: Never Assessed Comments Unknown Sex and Gender Information Value Date Recorded Sex Assigned at Female 05/06/2024 10:19 AM CDT Legal Sex Female 2:37 AM POLICE DISTRICT 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
--- OUTSIDE RECORDS SUMMARY | 2025-01-04 08:36 | XMS_ITS | Encounter Summary ---
Author Organization [facility] Address [address] [place] [address] Care Team Providers Care Liner Replacer Name Role Phone Ned Santana MD Primary Care Provider [phone]- [phone] Encounter Details Date Type Department Care Team (Latest Contact Info) Description 06/13/2003 Inpatient Historical [facility] PATIENT IN A BED Santiago Morales MD [address] [phone] OB INJ PELV ORG NEC-DEL (Primary Dx) Social History Tobacco Use Types Packs/Day Years Used Date Smoking Tobacco: Never Assessed Comments Unknown Sex and Gender Information Value Date Recorded Sex Assigned at Female 05/06/2024 10:19 AM CDT Legal Sex Female 2:37 AM PERFORMANCE ARCHITECT Gender Identity Female 05/06/2024 10:19 AM CDT Sexual Orientation Not on file documented as of this encounter Plan of Treatment Not on file documented as of this encounter Visit Diagnoses Diagnosis Other injury to pelvic organs, with delivery- Primary documented in this encounter Care Teams Liner Replacer Relationship Specialty Start Date End Date Ned Santana MD [address] [place] [address] PCP - General 01/20/02 documented as of this encounter
--- OUTSIDE RECORDS SUMMARY | 2025-01-04 08:36 | XMS_ITS | Encounter Summary ---
Author Organization [employer] Address [address] [place] [address] Care Team Providers Care International Accountant Name Role Phone Ned Santana MD Primary [...] AM CDT Legal Sex Female 2:37 AM RISK ADJUSTMENT SPECIALIST Gender Identity Female 05/06/2024 10:19 AM CDT Sexual Orientation Not on file documented as of this encounter Plan of Treatment Not on file documented as of this encounter Visit Diagnoses Diagnosis Scoliosis (and kyphoscoliosis), idiopathic- Primary documented in this encounter Care Teams International Accountant Relationship Specialty Start Date End Date Ned Santana MD [address] [place] [phone] PCP - General 01/20/02 documented as of this encounter
--- OUTSIDE RECORDS SUMMARY | 2025-01-04 08:36 | XMS_ITS | Clinical Summary ---
Author Organization [facility] Administrative Offices Address [address] [place] [phone] Care Team Providers Care Handle Attacher Name Role Phone Ned Santana MD Primary Care Provider Allergies No known active allergies Medications amitriptyline (ELAVIL) 50 mg tablet 04/25/2021 Active amLODIPine (NORVASC) 2.5 mg tablet 06/12/2021 Active DULoxetine (CYMBALTA) 60 mg Capsule, Delayed Release(E.C.) 07/01/2021 Activ e levothyroxine 75 mcg tablet 04/25/2021 Activ e spironolactone (ALDACTONE) 100 mg tablet 05/14/2021 Active tamsulosin (FLOMAX) 0.4 mg capsule 0.4 MG ORALLY EVERY MORNING 07/28/2024 Active tretinoin (RETIN-A) 0.05 % Cream APPLY A PEA SIZED AMOUNT TO FACE EVERY NIGHT 08/25/2024 Active triamcinolone acetonide (KENALOG) 0.1 % Cream Apply to affected area 2 times daily. 06/21/2024 Active ketoconazole (NIZORAL) 2 % Cream APPLY TO AFFECTED AREAS OF FACE TWICE DAILY FOR 2 WEEKS, THEN 2-3 TIMES WEEKLY FOR MAINTENANCE. 08/25/2024 Active Estradiol (DivigeL) 0.25 mg/0.25 gram (0.1 %) Gel in Packet Apply 1 Package (0.25 mg) to skin as directed daily. 90 Packet 3 10/04/2024 Active progesterone micronized (PROMETRIUM) 100 mg Capsule Take 1 Capsule (100 mg) by mouth daily. 90 Capsule 3 10/04/2024 Active Active Problems No known active problems Encounters Date Type Department Care Team Description 12/06/2024 External Device Data STL ABSTRACTION Provider, Abstract 11/09/2024 External Device Data ST[facility] ABSTRACTION Provider, Abstract 10/29/2024 External Device Data ST[facility] ABSTRACTION Provider, Abstract 10/28/2024 External Device Data ST[facility] ABSTRACTION Provider, Abstract 10/26/2024 External Device Data ST[facility] ABSTRACTION Provider, Abstract 10/12/2024 External Device Data STL ABSTRACTION Provider, Abstract 10/11/2024 Orders Only [facility] SUPERVISOR PARTICLEBOARD [facility] [address] [facility] [address] [place] [phone] Santiago Morales MD from Last 3 Months Immunizations Immunization Administration Dates Next Due Influenza Seasonal Unspecified Formulation IM Social History Tobacco Use Types Packs/Day Years [...] AM CDT Legal Sex Female 2:37 AM QUARTZ CUTTER Gender Identity Female 05/06/2024 10:19 AM CDT Sexual Orientation Not on file Last Filed Vital Signs Vital Sign Reading Time Taken Comments Blood Pressure 128/86 10/04/2024 12:18 PM QUARTZ CUTTER Pulse - - Temperature - - Respiratory Rate - - Oxygen Saturation - - Inhaled Oxygen Concentration - - Weight 78.8 kg (173 lb 12.8 oz) 025 12:18 PM QUARTZ CUTTER Height 170.2 cm (5' 7 ) 10/04/2024 12:1 8 PM QUARTZ CUTTER Body Mass Index 27.22 10/04/2024 12:18 PM QUARTZ CUTTER Plan of Treatment Health Maintenance Due Date Last Done Comments Pre-Diabetes and Diabetes Screening 1970 DTAP/TDAP/TD VACCINES (1 - Tdap) 11/15/1991 HEPATITIS B VACCINES (1 of 3 - 19+ 3-dose series) 11/15/1991 COLORECTAL SCREENING 2017 Colorectal Cancer Screening 2017 FIT-DNA Q 3 years 2017 FIT/FOBT Q 1 year 2017 Flex Sig/CT Colonography Q 5 years 2017 ZOSTER VACCINE (1 of 2) 2022 BREAST CANCER SCREENING 10/11/2025 10/11/19 25, 10/04/2024, 08/28/2023, Additional history exists PAP SMEAR 10/04/2027 10/04/2024, 07/25, 07/24/2022, Additional history exists CERVICAL CANCER SCREENING 10/04/2029 HPV/Cotest (21-29) 10/04/2029 10/04/2024, 1 10/21/2022, 07/24/2022, Additional history exists HPV/Cotest (30-65) 10/04/2029 10/04/2024, 1 10/21/2022, 07/24/2022, Additional history exists INFLUENZA VACCINE Completed 06/24/2024, , 06/10/2022 Procedures Procedure Name Priority Date/Time Associated Diagnosis Comments MAMMO DIAG UNI RIGHT 3D CATERINA W OR WO CAD Routine 10/11/2024 11:45 AM QUARTZ CUTTER CERV/VAG CYTO AGE BASED SCREEN PAP Routine 10/04/2024 1:44 PM QUARTZ CUTTER Screening for malignant neoplasm of cervix from Last 3 Months or Most Recently Relevant to Health Maintenance Results * MAMMO 3D CATERINA DIAGNOSTIC UNI RT 3D W OR WO CAD (10/11/2024 11:45 AM QUARTZ CUTTER) Anatomical Region Laterality Modality Breast Right Mammography us Santiago Morales MD MAMMO ORDERABLES Edited Resu lt - Final * CERV/VAG CYTO AGE BASED SCREEN PAP (10/04/2024 1:44 PM QUARTZ CUTTER) COMMENT (PAP): [facility] [place] [facility] Comment: This order for age-based cervical cancer and STI screening follows ACOG guidelines(PB 168, 140, YNV571). See individual assays for performing site location. CLINICAL INFORMATION [facility] [place] Comment:None given LAST MENSTRUAL PERIOD [facility] [place] Comment:NONE GIVEN PREV PAP: [facility] [place] Comment:NONE GIVEN PREV BX: [facility] [place] Comment:NONE GIVEN SOURCE [facility] [place] Comment:Endocervix ADEQUACY: [facility] [place] Comment: Satisfactory for evaluation. Endocervical/transformation zone component present. PAP INTERP [facility] [place] Comment: Cytology Results: Negative for intraepithelial lesion or malignancy. COMMENT (PAP TEST) [facility] [place] Comment: This Pap test has been evaluated with computer assisted technology. AUTOMATIC FURNACE OPERATOR: [facility] [place] Comment: MVB, CT(ASCP) CT Screening Location: [place] [address] [place] [address] EXPLANATORY NOTE [facility] [place] Comment: EXPLANATORY NOTE: The Pap is a [...] information. HPV E6/E7 Not Detected Not Detected [facility] [place] Comment: Methodology: Rig Builder-Mediated Amplification This assay detects E6/E7 viral messenger RNA (mRNA) from 14 high-risk HPV types (16,18,31,33,35,39,45,51,52,56,58,59,66,68). Cervical sources are required for HPV testing. If a vaginal source from a patient who has had a total hysterectomy with removal of cervix was submitted, please contact the testing laboratory for alternative testing options. For additional information, please refer to http://education.Dysonics/faq/BYU303l6 (This link if provided for information/ educational purposes only.) Test Performed at: [facility] [address] [place] [address] Emiliano SLOAN Genital SWAB OF ENDOCERVIX / Unknown 10/04/2024 1:44 PM QUARTZ CUTTER 10/04/2024 11:55 PM QUARTZ CUTTER us Santiago Morales MD PATHOLOGY/CYTOLOGY ORDERABLE S Final Result [facility] [phone] [facility] [address] [place] [address] from Last 3 Months or Most Recently Relevant to Health Maintenance Insurance [facility] BLUE ACCESS/TRUE BLUE PPO Care Teams Handle Attacher Relationship Specialty Start Date End Date Ned Santana MD [address] [place] [address] PCP - General 01/20/02
--- OUTSIDE RECORDS SUMMARY | 2025-01-04 08:36 | XMS_ITS | Encounter Summary ---
Author Organization [facility] Address 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
--- OUTSIDE RECORDS SUMMARY | 2025-01-04 08:36 | XMS_ITS | Encounter Summary ---
Author Organization [facility] [facility] [employer] [facility] Address 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 [place], [place] [address] Admit Date: 10/30/2008 [place] M[place] Sex: F Admit Prov: ADILENE CAMEJO Date: 1970 Primary Care Prov: TIFFANIE SANTANA CMRN: [id number] Room: [facility] SSN: [id number] IMAGING SERVICES Ordering Prov: N/A Accession Number: [id number] Interpretation CT LUMBAR SPINE WITH INTRATHECAL CONTRAST LUMBAR MYELOGRAM 10/30/2008 Indication: Low back pain with some radiation into both lower extremities. Technique: Multiple CT axial images were acquired of the lumbar spine following administration of intrathecal contrast. Multiplanar reconstructions were performed. Fluoroscopic and conventional radiographs were also obtained. Findings: Radiographic images demonstrate good opacification of the thecal sac. Posterior instrumentation is present consisting of pedicle screws bilaterally at L3, L4, and L5. No lucency is seen around the screws to suggest loosening. The screw on the left at L5 skirts the superior endplate. Paired vertical rods are present which extends superiorly into the thoracic spine. The left phani is discontinuous at the T12-L1 level. Cross member plate is seen at L3-L4. Laminar wires are seen at L2 and above. Bone donor graft site is present in the left iliac bone. Mild left convex scoliosis is present with its apex at roughly the L2 and L1 levels. Mild rotational component is also noted. There appears to be solid posterior fusion in the thoracic and lumbar spine through L2-L3. Spinal cord has normal size and terminates normally. T12-L1 through L2-L3: Disc configurations are normal. Posterior instrumentation and fusion are present. The canal and foramina are not stenotic. L3-L4: Metal artifact obscures the L3 level. Facet arthropathy and fusion across the facet joints is present. The central canal and foramina are not stenotic. L4-L5: Metal artifact obscures the L4 body level. The disc configuration is normal. Marked facet arthropathy is present bilaterally. The canal and foramina are nonstenotic. L5-S1: Mild broad-based disc protrusion is present which is very slightly eccentric toward the left. This indents the thecal sac but does not cause any definite nerve compromise or stenosis. There is some mild left foraminal narrowing due in part to osteophytic spurring. Impression: 1. Posterior instrumentation and fusion through L5. 2. Mild disc protrusion at L5-S1 as described. 3. Mild leftward scoliosis. . Dictated by: LIONEL KANG 10/30/2008 14:52 Electronically signed by: LIONEL KANG 10/31/2008 11:04 Transcribed: 10/30/2008 18:04 AMK Procedure Note Lionel Kang - 10/31/2008 [facility] [address] [place], [place] [address] Admit Date: 10/30/2008 [place] MATA Sex: F Admit Prov: BASHIRADILENE Tim Date: 1970 Primary Care Prov: TIFFANIE SANTANA CMRN: [id number] Room: [facility] SSN: [id number] IMAGING SERVICES Ordering Prov: N/A Interpretation CT [...] The left phani is discontinuous at the [id number]. Cross member plate is seen at L3-L4. Laminar wires are seen at L2and above. Bone donor graft site is present in the left iliac bone. Mildleft convex scoliosis is present with its apex at roughly the L2 and M5btodpp. Mild rotational component is also noted. There [...] KANG 10/31/2008 11:04 Transcribed: 10/30/2008 18:04 AMK Adilene Camejo MD [address] ORDERABLES Final Result * XR CONSULTATION (10/30/2008 10:20 AM CDT) 10/30/2008 10:2 0 AM CDT Narrative INTERFACE SYSTEM - 10/30/2008 3:10 PM CDT [facility] [address], [place] [address] Admit Date: 10/30/2008 [place]OR[place] MATA Sex: F Admit Prov: ADILENE CAMEJO Date: 1970 Primary Care Prov: TIFFANIE SANTANA CMRN: [id number] Room: [place] [address] SSN: [id number] IMAGING SERVICES Ordering Prov: N/A Accession Number: [id number] Interpretation Fluoroscopic lumbar puncture and lumbar myelogram 10/30/2008 Indication: Low back pain with some radiation and lower extremities Procedure: The risks and benefits of the procedure were discussed with the patient. Written informed consent was obtained. The patient was placed prone on the fluoroscopy table. The lower back was prepped and draped in sterile fashion. The L5-S1 level was marked using fluoroscopy. Local analgesia was achieved by infiltration of 1% lidocaine with 4.2% sodium bicarbonate. A 27 gauge 8.9 cm needle was advanced in a paraspinal approach into the thecal sac at the L5-S1 level. Roughly 10 cc of Omnipaque-180 contrast was injected. The needle was withdrawn without complication. Fluoroscopic radiographic images were obtained. The patient was sent for CT evaluation. Impression: Successful lumbar puncture with lumbar myelogram. . Dictated by: LIONEL KANG 10/30/2008 15:07 Electronically signed by: LIONEL KANG 10/30/2008 15:08 Procedure Note Lionel Kang - 10/30/[address] [address] Admit Date: 10/30/2008 [place]OR[place] MATA Sex: F Admit Prov: ADILENE CAMEJO Date: 1970 Primary Care Prov: TIFFANIE SANTANA CMRN: [id number] Room: [place] [address] SSN: [id number] IMAGING SERVICES Ordering Prov: N/A Interpretation Fluoroscopic [...] Camejo MD DIAGNOSTIC IMAGING ORDERABLES Final Result INTERFACE SYSTEM Refer to clinic/hospital department * XR MYELOGRAM LUMBAR (10/30/2008 10:20 AM CDT) Anatomical Region Laterality Modality Spine Other 10/30/2008 10:2 0 AM CDT Narrative 10/31/2008 11:06 AM CDT [place] [address] [place], [place] [address] Admit Date: 10/30/2008 [place]OR[place] MATA Sex: F Admit Prov: ADILENE CAMEJO Date: 1970 Primary Care Prov: TIFFANIE SANTANA CMRN: [id number] [id number] [facility] Ordering Prov: N/A Accession Number: [id number] Interpretation LUMBAR MYELOGRAM. 10/30/[address] lumbar spine report . Dictated by: LIONEL KANG 10/30/2008 15:07 Electronically signed by: LIONEL KANG 10/31/2008 11:04 Transcribed: 10/30/2008 16:00 Procedure Note Lionel Kang - 10/31/2008 [place] [address] [place], [place] [address] Admit Date: 10/30/2008 [place] M[place] Sex: F Admit Prov: ADILENE CAMEJO Date: 1970 Primary Care Prov: TIFFANIE SANTANA CMRN: [id number] Room: [facility]: [id number] IMAGING SERVICES Ordering Prov: N/A Interpretation LUMBAR MYELOGRAM. 10/30/[address] lumbar spine report . Dictated by: LIONEL KANG 10/30/2008 15:07 Electronically signed by: LIONEL KANG 10/31/2008 11:04 Transcribed: 10/30/2008 16:00 Adilene Camejo MD DIAGNOSTIC IMAGING ORDERABLES Final Result * HCG QUALITATIVE, URINE (10/30/2008 8:09 AM CDT) HCG QUAL URINE Negative Negative [facility] SPECIFIC GRAVITY UA 1.005 1.001 - 1.035 [facility] HCG QUAL URINE COMMENT See Below. [facility] Comment:Urine resu lts may be falsely negative due to low specific gravity. Urine specimen (specimen) 10/30/2008 8:09 AM CDT 10/30/2008 8:26 AM CDT Adilene Camejo MD URINE ORDERABLES Edited INTERFACE SYSTEM Refer to clinic/hospital department [facility] CLIA# [id number] [address] [place] [address] documented in this encounter Visit Diagnoses Diagnosis Spinal stenosis, unspecified region other than cervical Backache, unspecified Arthrodesis status documented in this encounter Care Teams Wash Tank Tender Relationship Specialty Start Date End Date Tiffanie Santana MD [address] [place] [phone] PCP - General 01/20/02 documented as of this encounter
--- OUTSIDE RECORDS SUMMARY | 2025-01-04 08:36 | XMS_ITS | Encounter Summary ---
Author Organization [facility] Address 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
--- OUTSIDE RECORDS SUMMARY | 2025-01-04 08:36 | XMS_ITS | Clinical Summary ---
Author Organization [facility] Address [address] [place] [address] Care Team Providers Care Apparatus Cleaner Name Role Phone Darian Santana MD Primary Care Provider [phone] Allergies No known active allergies Medications spironolactone [...] on file Legal Sex Female 6:04 AM PORTER HEAD Gender Identity Not on file Sexual Orientation [...] Plan of Treatment Not on file Insurance [employer] Care Teams Apparatus Cleaner Relationship Specialty Start Date End Date Darian Santana MD [address] [place] [address] PCP - General 07/08/17
--- OUTSIDE RECORDS SUMMARY | 2025-01-04 08:36 | XMS_ITS | Encounter Summary ---
Author Organization [facility] Address [address] [place] [address] Care Team Providers Care Serging Machine Operator Automatic Name Role Phone Ned Santana MD Primary Care Provider [phone] Encounter Details Date Type Department Care Team (Latest Contact Info) Description 02/03/2000 Outpatient Historical [facility] Richard Hidalgo MD NO ADDRESS ON FILE Scoliosis (and kyphoscoliosis), idiopathic (Primary Dx) Social History Tobacco Use Types Packs/Day Years Used Date Smoking Tobacco: Never Assessed Comments Unknown Sex and Gender Information Value Date Recorded Sex Assigned at Female 05/06/2024 10:19 AM CDT 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
== END 2025-01-04 08:23 | disposition home or self-care (01) ==
PROVIDERS: PCP Nurse Practitioner Family; Visit Provider Urology
DX: N20.0 Calculus of kidney (principal); Z96.7 Presence of other bone and tendon implants
CPT/HCPCS: 74018